=== PATIENT | female | born 1970 | race Caucasian/White ===

== ENCOUNTER 2020-10-18 15:07 | Inpatient (IN) | payer MEDICAID, SELFPAY ==
--- NOTE | ~2020-10-18 | CT_ITS ---
EXAMINATION: CT HEAD WITHOUT CONTRAST CLINICAL INFORMATION: Weakness. Weight loss. COMPARISON: None. TECHNIQUE: Contiguous axial imaging was performed from the skull base to vertex without intravenous administration of contrast. Coronal and sagittal reformatted images are performed at the CT scanner. [This CT examination was performed using dose optimization techniques as appropriate, variously including the following: *Automated exposure control *Adjustment of mA and/or kV according to patient size (this includes techniques or standardized protocols for targeted exams where dose is matched to indication/reason for exam; i.e. extremities or head) *Use of iterative reconstruction technique] DLP: 595.12 mGy-cm. FINDINGS: There is no evidence of acute intracranial hemorrhage or territorial infarction. No abnormal mass-effect or midline shift is seen. Diehl to white matter differentiation is well preserved. No extra-axial fluid collections are identified. The ventricles are normal in size. There is no abnormal attenuation within the brain parenchyma. There is no osseous abnormality. The mastoid air cells and visualized portions of the paranasal sinuses are well-aerated. CT/CT head/brain wo con IMPRESSION: No acute intracranial pathology.
--- NOTE | ~2020-10-18 | CT_ITS ---
EXAMINATION: CT CHEST, ABDOMEN AND PELVIS WITH CONTRAST. CLINICAL INFORMATION: weight loss? vomiting. Cancer? . COMPARISON: No pertinent prior studies are available for comparison. TECHNIQUE: Multidetector volumetric imaging was performed from the thoracic inlet through the pubic symphysis following administration of 100 mL Omnipaque 300 intravenous contrast. Sagittal and coronal reformatted images were obtained on the technologist's workstation. This CT examination was performed using dose optimization techniques as appropriate, variously including the following: *Automated exposure control *Adjustment of mA and/or kV according to patient size (this includes techniques or standardized protocols for targeted exams where dose is matched to indication/reason for exam; i.e. extremities or head) *Use of iterative reconstruction technique DLP: 557 mGy-cm FINDINGS: CHEST: Lung: Linear markings at both lung bases more suggestive of a atelectasis. There are patchy regions of impacted bronchi more so in the right lower lobe. Etiology of this is uncertain. This could be related to underlying infectious etiology or even silent aspiration. Mediastinum: The mediastinum is normal. The central vascular structures are unremarkable. No hilar or mediastinal lymphadenopathy. Pericardium/Pleura: No significant effusion. No pleural mass or thickening. Chest Wall/Axilla: Unremarkable. ABDOMEN/PELVIS: Peritoneal Space:No significant free air or free fluid identified. Liver, Gallbladder, Biliary Tree: The liver is normal in size, shape, and attenuation. No focal hepatic lesion or biliary ductal dilatation is present. The gallbladder surgically absent. Pancreas: Atrophic Spleen: Unremarkable. Adrenal Glands: Bilateral adrenal nodules are seen measuring up to 2.3 cm on the left and 1.9 cm on the right. Kidneys and Ureters: The kidneys are normal in size, shape, and attenuation. No hydronephrosis, hydroureter, or calculi seen. No perinephric stranding. Bladder: Unremarkable. Gastrointestinal Tract: Colon is mostly decompressed. I do not appreciate any suspicious colonic wall thickening or pericolonic inflammatory changes within the decompressed bowel. Normal-appearing appendix in the right lower quadrant. Visualized small bowel unremarkable. Abdominal Wall: No significant hernia is appreciated. Lymphovascular Structures: No lymphadenopathy. The aorta is unremarkable.. Pelvic Viscera: Unremarkable. Osseus Structures: Mild compression deformity of the T12 vertebral body of indeterminate age or significance. The appearance is similar to the 10/30/2017 chest x-ray. CT/CT abdomen pelvis w con IMPRESSION: Bronchial wall thickening with areas of likely mucus impacted bronchi more likely representing infectious or inflammatory causes. No suspicious pulmonary nodules or pulmonary mass lesion seen. Bilateral adrenal lesions are noted uncertain etiology. Adrenal adenomas cannot be excluded with this appearance and if there is clinical concern, consider dedicated triphasic adrenal CT scan with and without contrast to evaluate the adrenal washout pattern.
--- NOTE | ~2020-10-18 | XR_ITS ---
EXAMINATION: XR CHEST CLINICAL INFORMATION: Pneumonia COMPARISON: 10/30/2017 TECHNIQUE: Frontal view of the chest was obtained. FINDINGS: No significant abnormality is noted involving the heart, lungs, mediastinum, bony thorax or soft tissues. Surgical clips are noted in the gallbladder fossa. XR/XR chest 1V IMPRESSION: Unremarkable examination.
[2020-10-18 15:12] VITALS: BP 99/69; PULSE 62; RESP 16; TEMP 36.7; O2SAT 99; BMI 19.7
[2020-10-18 16:17] VITALS: BP 94/48; PULSE 53; RESP 18; TEMP 36.9; O2SAT 98
[2020-10-18] MEDS: 0.9 % Sodium Chloride 1,000 ML 999 ML IV ×3 (16:44→20:00)
[2020-10-18] MEDS: ondansetron HCL 4 MG/2 ML VIAL IVPUSH (16:44)
[2020-10-18 17:36] LABS: Basophils Percent Auto 0.3 % (0-2); Eosinophils Percent Auto 0.2 % (0-4); Hematocrit 41.8 % (37-47); Hemoglobin 12.7 g/dl (12.0-16.0); Imm Gran Abs Auto 0.02 X10*3/uL (0.00-0.03); Imm Gran Pct Auto 0.3 % (0.0-0.4); Lymphocytes Absolute Auto 1.7 X10*3/uL (1.2-4.9); Lymphocytes Percent Auto 26.9 % (20-40); MANUAL DIFF FLAG SCAN; Mean Corpuscular HGB Conc 30.4 g/dl (31.0-35.0); Mean Corpuscular Hemoglobin 31.6 pg (27.0-33.0); Monocytes Absolute Auto 0.3 X10*3/uL (0.1-1.2); Monocytes Percent Auto 4.9 % (2-11); Neutrophils Absolute Auto 4.3 X10*3/uL (2.0-8.3); Neutrophils Percent Auto 67.4 % (45-73); PLT CLUMP 1; Red Blood Count 4.02 X10*6/uL (4.20-5.50); Red Cell Distribution Width 13.6 % (11.0-16.0); SCAN SMEAR FLAG 1
--- NOTE | 2020-10-18 17:36 | ECG_ITS ---
Test Reason : WEAKNESS Blood Pressure : / mmHG Vent. Rate : 050 BPM Atrial Rate : 050 BPM P-R Int : 170 ms QRS Dur : 088 ms QT Int : 480 ms P-R-T Axes : 076 083 069 degrees QTc Int : 437 ms Sinus bradycardia Otherwise normal ECG When compared with ECG of 24-JAN-2015 14:20, Nonspecific T wave abnormality no longer evident in Lateral leads Referred By: Merrill Gomez Electronically Signed By:CRUZ EMANUEL
[2020-10-18 17:40] LABS: White Blood Count 6.4 X10*3/uL (4.8-10.8)
--- NOTE | 2020-10-18 17:45 | ED.WEAKNESS ---
HPI - Weakness General Chief complaint: Weakness Stated complaint: WEIGHT LOSS,WEAKNESS,SOB,N/V Time Seen by Provider: 10/18/20 17:19 Source: patient Mode of arrival: ambulatory Limitations: no limitations History of Present Illness HPI Narrative: Patient presents to the ED for 3 months of weakness, fatigue, loss of appetite, and vomitting. Patient also states some weight loss. Patient denies any abdominal pain, headache, dizziness, fever, chills. Patient does admits cough with recurring fevers for the past 2 weeks. Patient denies any slurred speech, loss of vision, paralysis of extremities, or facial droop. Related Data Home Medications Medication Instructions Recorded Confirmed buprenorphine-naloxone [Suboxone] 1 strip SUBLINGUAL DAILY 10/19/20 10/19/20 clonazepam 2 mg PO BID 10/19/20 10/19/20 clonidine HCl 0.1 tab PO TID PRN 10/19/20 10/19/20 sertraline 100 mg PO DAILY 10/19/20 10/19/20 Allergies Allergy/AdvReac Type Severity Reaction Status Date / Time No Known Allergies Allergy Unverified 04/14/20 15:03 [No Known Allergies*] Review of Systems Constitutional: Constitutional: Reports as per HPI, Reports no additional constitutional complaints and Reports fatigue Eyes: Eyes: Reports as per HPI and Reports no additional eye complaints ENT: Reports system reviewed and no additional complaints, except as documented and Reports as per HPI Cardiovascular: Cardiovascular: Reports as per HPI and Reports no additional cardiovascular complaints Respiratory: Respiratory: Reports as per HPI and Reports no additional respiratory complaints Gastrointestinal: Gastrointestinal: Reports as per HPI and Reports no additional gastrointestinal complaints Genitourinary: Genitourinary: Reports no additional female genitourinary complaints and Reports as per HPI Musculoskeletal: Musculoskeletal: Reports no additional musculoskeletal complaints and Reports as per HPI Neurologic: Reports system reviewed and no additional complaints, except as documented and Reports as per HPI Psychiatric: Psychiatric: Reports no additional psychiatric complaints and Reports as per HPI Endocrine: Endocrine: Reports fatigue [facility] Past Medical History Medical History (Updated 10/19/20 @ 01:35 by RAZA Lanier) High cholesterol Social History Social History Alcohol intake: unknown Smoking Status: Current every day smoker Use of substances other than those prescribed or required for medical reasons: Unknown Advance Directives: No Advance Directives Information Provided: No Physical Exam Vital Signs: Vital Signs: Last Vital Signs Temp 98.6 F 10/18/20 21:59 Pulse 47 L 10/18/20 21:59 Resp 10 L 10/18/20 21:59 BP 104/59 L 10/18/20 21:59 Pulse Ox 99 10/18/20 21:59 Body Mass Index 19.7 Const: General: cooperative, healthy appearing, comfortable, no acute distress, well developed, alert, awake and Physically active Orientation/consciousness: patient oriented x3 HENMT: Head: Yes normal to inspection, Yes No palpable skull fracture present, Yes normocephalic and Yes atraumatic Eyes: General: appearance normal, both eyes and all related structures Neck: Neck: Yes normal visual inspection, Yes full ROM, Yes no lymphadenopathy, Yes no meningeal signs, Yes trachea midline, Yes supple and No tender Chest: Chest palpation & inspection: normal inspection of the chest and normal palpation of entire chest wall Resp: Effort & Inspection: normal respiratory effort and able to speak in complete sentences Auscultation: clear to auscultation bilaterally Cardio: Jugular venous distension: no JVD Heart sounds: S1 normal heart sound present and S2 normal heart sound present GI: Inspection: Yes normal to inspection and No abdominal wall ecchymosis Palpation (GI): Soft to palpation, not firm, nontender, no guarding and not rigid : General: No CVA tenderness and Yes no CVA tenderness Back/Spine/Pelvis: Back: no CVA tenderness, No CVA tenderness and No back tenderness Skin: General skin exam: no rashes or lesions noted and elasticity normal Neuro: Other: Negative slurred speech. Negative facial droop. Negative pronator drift. All extremities strength is equal,5+ and intact. [id number] test intact. NIH score 0 General: patient oriented x3, gait normal, no meningeal signs and CN's II-XI intact bilaterally Cranial nerves: Yes CN's II-XII intact bilaterally Extrem: Other: Negative for swelling, pitting edema, calf tenderness General: Yes normal to inspection and Yes full ROM Psych: Appearance: grossly normal, well kempt and not disheveled Course Course Course Narrative: History physical exam does not indicate stroke. Neuro exam is intact. We will do basic labs to make sure patient is not anemic or have any electrolyte deficiencies. Patient having symptoms for 3 months unlikely patient have a cardiac event but will do EKG and troponin. Chest x-ray and COVID swab will be sent. Reevaluation(s) Reevaluation #1: Patient EKG shows sinus bradycardia. Patient being slightly hypotensive. Patient is being given 3 L of fluids. Heart rate monitor ranges from high 40s to 50s. Will rule out any source of infection and cardiac evaluation. Reevaluation #2: Patient show me a picture as of recent 4 weeks ago and she looked to well nourished and with proper weight. In comparison to phone picture patient looks thinner than usual and evidence of weight loss Due to patient stating weight loss and weakness will send patient for imaging to make sure there was no cancer. Patient sent for chest CT, abdominal CT, and head CT, to make sure there is no cancer. Thyroid level added. Troponin negative. EKG shows sinus bradycardia. Patient hypotensive. Systolic in the 80s. Heart rate between 45 to 51. Reevaluation #3: Patient imaging came back negative for cancer. Chest CT shows bronchial wall thickening represent infectious etiology. Patient will be treated as pneumonia due to patient stating coughing and weakness. Patient labs are normal, but patient will be admitted to the hospital due to period of bradycardia and hypotension during ED visit. Given IV antibiotics. Spoke with hospitalist who accepted the case. Patient did not give urine during the ED visit. Patient was offered Person, but she refused. Patient's vital signs improved per patient no longer hyportensive MDM - Weakness MDM Narrative Medical decision making narrative: Pneumonia. Bradycardia. Lab Data Result diagrams: 10/18/20 17:15 10/18/20 17:15 Labs: Lab Results 10/18/20 10/18/20 10/18/20 Range/Units 17:15 17:15 19:58 WBC 6.4 (4.8-10.8) X10*3/uL RBC 4.02 L (4.20-5.50) X10*6/uL Hgb 12.7 (12.0-16.0) g/dl Hct 41.8 (37-47) % MCV 104.0 H (80-98) fL MCH 31.6 (27.0-33.0) pg MCHC 30.4 L (31.0-35.0) g/dl RDW 13.6 (11.0-16.0) % Plt Count TNP MPV Not Reportable Immature Gran % (Auto) 0.3 (0.0-0.4) % Neut % (Auto) 67.4 (45-73) % Lymph % (Auto) 26.9 (20-40) % Lewis % (Auto) 4.9 (2-11) % Eos % (Auto) 0.2 (0-4) % Baso % (Auto) 0.3 (0-2) % Lymph # (Auto) 1.7 (1.2-4.9) X10*3/uL Lewis # (Auto) 0.3 (0.1-1.2) X10*3/uL Eos # (Auto) 0.0 (0.0-0.4) X10*3/uL Baso # (Auto) 0.0 (0.0-0.2) X10*3/uL Abs Immat Gran (auto) 0.02 (0.00-0.03) X10*3/uL Absolute Neuts (auto) 4.3 (2.0-8.3) X10*3/uL Absolute Nucleated RBC 0.000 (0.0-0.012) X10*3/uL Nucleated RBC % (auto) 0.0 (0.0-0.2) /100WBC Smear Tech's Comments VERIFIED ESR (0-20) MM/HR PT 13.9 H (10.8-13.0) SEC INR 1.2 H (0.9-1.1) APTT 34.9 (24.1-38.0) SEC Hold Blue Top SEE NOTE Sodium 137 (135-145) mmol/L Potassium 4.5 (3.3-5.1) mmol/L Chloride 104 (96-108) mmol/L Carbon Dioxide 21 L (22-29) mmol/L Anion Gap 17 (12-20) BUN 20 H (9-16) mg/dL Creatinine 0.80 (0.5-1.4) mg/dL Estim Creat Clear Calc 70.0 Estimated GFR > 60 Random Glucose 85 (60-115) mg/dL Lactic Acid (0.5-2.0) mmol/L Calcium 8.3 L (8.4-10.2) mg/dL Magnesium 2.1 (1.6-2.6) mg/dL Total Bilirubin 0.8 (0.0-1.0) mg/dL AST 21 (5-31) U/L ALT 8 (0-31) U/L Alkaline Phosphatase 58 (39-117) U/L Total Creatine Kinase 48 (26-140) U/L Troponin I High Sens (<3.5-17.0) ng/L C-Reactive Protein 0.13 (< or = 0.50) mg/dL Total Protein 6.7 (6.5-8.0) g/dL Albumin 3.6 (3.5-5.0) g/dL Lipase < 4 L (8-78) U/L TSH 0.96 (0.32-4.0) uIU/mL Beta HCG, Quant 5 mIU/mL COVID-19 ([facility]) (Negative) COVID-19 Clin Com 10/18/20 10/18/20 10/18/20 Range/Units 19:58 19:58 19:58 WBC (4.8-10.8) X10*3/uL RBC (4.20-5.50) X10*6/uL Hgb (12.0-16.0) g/dl Hct (37-47) % MCV (80-98) fL MCH (27.0-33.0) pg MCHC (31.0-35.0) g/dl RDW (11.0-16.0) % Plt Count MPV Immature Gran % (Auto) (0.0-0.4) % Neut % (Auto) (45-73) % Lymph % (Auto) (20-40) % Lewis % (Auto) (2-11) % Eos % (Auto) (0-4) % Baso % (Auto) (0-2) % Lymph # (Auto) (1.2-4.9) X10*3/uL Lewis # (Auto) (0.1-1.2) X10*3/uL Eos # (Auto) (0.0-0.4) X10*3/uL Baso # (Auto) (0.0-0.2) X10*3/uL Abs Immat Gran (auto) (0.00-0.03) X10*3/uL Absolute Neuts (auto) (2.0-8.3) X10*3/uL Absolute Nucleated RBC (0.0-0.012) X10*3/uL Nucleated RBC % (auto) (0.0-0.2) /100WBC Smear Tech's Comments ESR (0-20) MM/HR PT (10.8-13.0) SEC INR (0.9-1.1) APTT (24.1-38.0) SEC Hold Blue Top Sodium (135-145) mmol/L Potassium (3.3-5.1) mmol/L Chloride (96-108) mmol/L Carbon Dioxide (22-29) mmol/L Anion Gap (12-20) BUN (9-16) mg/dL Creatinine (0.5-1.4) mg/dL Estim Creat Clear Calc Estimated GFR Random Glucose (60-115) mg/dL Lactic Acid 1.0 (0.5-2.0) mmol/L Calcium (8.4-10.2) mg/dL Magnesium (1.6-2.6) mg/dL Total Bilirubin (0.0-1.0) mg/dL AST (5-31) U/L ALT (0-31) U/L Alkaline Phosphatase (39-117) U/L Total Creatine Kinase (26-140) U/L Troponin I High Sens < 3.5 (<3.5-17.0) ng/L C-Reactive Protein (< or = 0.50) mg/dL Total Protein (6.5-8.0) g/dL Albumin (3.5-5.0) g/dL Lipase (8-78) U/L TSH (0.32-4.0) uIU/mL Beta HCG, Quant mIU/mL COVID-19 ([facility]) Negative (Negative) COVID-19 Clin Com See Note 10/18/20 Range/Units 21:10 WBC (4.8-10.8) X10*3/uL RBC (4.20-5.50) X10*6/uL Hgb (12.0-16.0) g/dl Hct (37-47) % MCV (80-98) fL MCH (27.0-33.0) pg MCHC (31.0-35.0) g/dl RDW (11.0-16.0) % Plt Count MPV Immature Gran % (Auto) (0.0-0.4) % Neut % (Auto) (45-73) % Lymph % (Auto) (20-40) % Lewis % (Auto) (2-11) % Eos % (Auto) (0-4) % Baso % (Auto) (0-2) % Lymph # (Auto) (1.2-4.9) X10*3/uL Lewis # (Auto) (0.1-1.2) X10*3/uL Eos # (Auto) (0.0-0.4) X10*3/uL Baso # (Auto) (0.0-0.2) X10*3/uL Abs Immat Gran (auto) (0.00-0.03) X10*3/uL Absolute Neuts (auto) (2.0-8.3) X10*3/uL Absolute Nucleated RBC (0.0-0.012) X10*3/uL Nucleated RBC % (auto) (0.0-0.2) /100WBC Smear Tech's Comments ESR 17 (0-20) MM/HR PT (10.8-13.0) SEC INR (0.9-1.1) APTT (24.1-38.0) SEC Hold Blue Top Sodium (135-145) mmol/L Potassium (3.3-5.1) mmol/L Chloride (96-108) mmol/L Carbon Dioxide (22-29) mmol/L Anion Gap (12-20) BUN (9-16) mg/dL Creatinine (0.5-1.4) mg/dL Estim Creat Clear Calc Estimated GFR Random Glucose (60-115) mg/dL Lactic Acid (0.5-2.0) mmol/L Calcium (8.4-10.2) mg/dL Magnesium (1.6-2.6) mg/dL Total Bilirubin (0.0-1.0) mg/dL AST (5-31) U/L ALT (0-31) U/L Alkaline Phosphatase (39-117) U/L Total Creatine Kinase (26-140) U/L Troponin I High Sens (<3.5-17.0) ng/L C-Reactive Protein (< or = 0.50) mg/dL Total Protein (6.5-8.0) g/dL Albumin (3.5-5.0) g/dL Lipase (8-78) U/L TSH (0.32-4.0) uIU/mL Beta HCG, Quant mIU/mL COVID-19 ([facility]) (Negative) COVID-19 Clin Com ECG Data Interpretation: Sinus bradycardia. Particularly 50. NJ interval 170. QRS 88. QTC 437. Negative STEMI Discharge Plan Discharge Clinical Impression: Pneumonia, Bradycardia Patient Disposition: Admitted As Inpatient
[2020-10-18 17:48] LABS: Alanine Aminotransferase 8 U/L (0-31); Albumin Level 3.6 g/dL (3.5-5.0); Alkaline Phosphatase 58 U/L (39-117); Anion Gap 17 (12-20); Aspartate Amino Transferase 21 U/L (5-31); Bilirubin Total 0.8 mg/dL (0.0-1.0); Blood Urea Nitrogen 20 mg/dL (9-16); Calcium 8.3 mg/dL (8.4-10.2); Carbon Dioxide 21 mmol/L (22-29); Chloride 104 mmol/L (96-108); Estimated Glomerular Filt Rate > 60; Glucose Random 85 mg/dL (60-115); Potassium 4.5 mmol/L (3.3-5.1); Sodium 137 mmol/L (135-145); Total Protein 6.7 g/dL (6.5-8.0)
[2020-10-18 18:03] LABS: HCG Quantitative 5 mIU/mL
[2020-10-18 18:13] LABS: Lipase < 4 U/L (8-78); Magnesium 2.1 mg/dL (1.6-2.6)
[2020-10-18 18:18] VITALS: BP 85/44; PULSE 49; RESP 15; TEMP 36.9; O2SAT 97
[2020-10-18 18:37] LABS: SLIDE REVIEW VERIFIED
--- NOTE | 2020-10-18 19:15 | PC.NURSE ---
ASSUMED CARE OF PT. PT RESTING IN STRETCHER STATING I JUST DON'T FEEL GOOD AT THIS TIME. PT ON MONITOR, PA IN ROOM FOR RE-EVAL.
[2020-10-18 20:22] LABS: COVID-19 Test Negative (Negative)
[2020-10-18 20:39] LABS: C Reactive Protein 0.13 mg/dL (< or = 0.50)
[2020-10-18 20:42] LABS: Troponin-I High Sensitivity < 3.5 ng/L (<3.5-17.0)
[2020-10-18 20:44] VITALS: BP 93/63; PULSE 50; RESP 12; TEMP 36.9; O2SAT 100
[2020-10-18 21:26] LABS: Thyroid Stimulating Hormone 0.96 uIU/mL (0.32-4.0)
[2020-10-18 21:45] LABS: INTERNATIONAL NORM RATIO 1.2 (0.9-1.1); Prothrombin Time 13.9 SEC (10.8-13.0)
[2020-10-18 21:48] LABS: Partial Thromboplastin Time 34.9 SEC (24.1-38.0)
[2020-10-18 21:59] VITALS: BP 104/59; PULSE 47; RESP 10; TEMP 37; O2SAT 99
[2020-10-18] MEDS: Azithromycin 500 MG in 0.9 % Sodium Chloride 250 ML 125 MG IV (22:00)
--- NOTE | 2020-10-18 22:00 | PC.NURSE ---
PT BEING ADMITTED AT THIS TIME. AWAITING FURTHER ORDERS.
[2020-10-18 22:07] LABS: Erythrocyte Sedimentation Rate 17 MM/HR (0-20)
--- NOTE | 2020-10-18 22:36 | P.HPHOSP_ITS ---
History of Present Illness Date of Service: 10/18/20 Chief Complaint: multiple complaints This is a 50-year-old female with past medical history of hypertension, endocarditis, discitis, pneumonia, hyperlipidemia, PTSD who presents to the hospital with complaints of fever, coughing, phlegm production for the past 4 months. Patient reports that she felt like she had pneumonia but tried to manage at home for the past 4 months, improved slightly but for the past couple of weeks her symptoms returned. She also has rhinorrhea, night sweats. She also has nausea, vomiting, and reports significant weight loss of about 10 lb in 3 days. She has loss of appetite, she has been drinking Ensure and protein shakes but has not eaten anything solid for couple weeks. She is also constipated chronically, has decreased urine output, feels dyspneic, and tachypneic. She denies any recent sick contacts or travel, denies any headache, change in vision, no abdominal pain, no chest pain. No urinary symptoms including no dysuria, urgency, frequency. no lower extremity edema. On arrival to the ED patient's vital significant for temp of 98?, heart rate of 62 the drops to 40s to 50s, respiratory rate of 16, blood pressure of 9 hour 69, but did drop in the ED to 85/44, satting 97% on room air Labs are significant for WBC count of 6.3, hemoglobin of 12.1, PT of 13.9 INR of 1.2, BUN of 18, creatinine of 0.81, and troponin negative, CRP negative, lipase negative, respiratory viral panel pending, COVID-19 negative, Chest CT revealed bronchial wall thickening with area of likely mucus impacted bronchi more likely representing infectious or inflammatory causes. No suspicious pulmonary nodules or pulmonary mass lesions seen. She has bilateral adrenal lesions of uncertain etiology Goal history as below on confirm with patient Review of Systems Review of Systems: Yes all other systems are reviewed and are negative [facility] Medical History (Updated 10/19/20 @ 06:02 by Hunter Pinto MD) Discitis Endocarditis High cholesterol Hyperlipidemia Hypertension Pneumonia PTSD (post-traumatic stress disorder) Pertinent family history: Breast cancer in sister, throat cancer in father Surgical History (Updated 10/19/20 @ 05:55 by Hunter Pinto MD) History of Social History Household Members: None Housing: Apartment Alcohol intake: unknown Smoking Status: Current every day smoker Tobacco Type: Cigarette Use of substances other than those prescribed or required for medical reasons: No Have you been hit, kicked, punched, or otherwise hurt by someone within the past year? If so, by whom?: No Do you feel safe in your current relationship?: No Current Relationship Is there a partner from a previous relationship who is making you feel unsafe now?: No Are you made to feel afraid or neglected: No Advance Directives: No Advance Directives Information Provided: No Do you have thoughts of harming others: None Do you have a plan to hurt others: No Plan Recently lost weight without trying: Yes Meds Allergies Allergy/AdvReac Type Severity Reaction Status Date / Time No Known Allergies Allergy Verified 10/19/20 02:43 [No Known Allergies*] Active Medications: Current Medications Generic Name Dose Route Start Last Admin Trade Name Freq PRN Reason Stop Dose Admin Azithromycin 500 mg/ Sodium 250 mls @ 125 mls/hr 10/18/20 21:25 Chloride IV 10/18/20 23:24 ONCE ONE Home Medications Medication Instructions Recorded Confirmed Last Taken Type buprenorphine-naloxone [Suboxone] 1 strip SUBLINGUAL DAILY 10/19/20 10/19/20 10/18/20 08:00 History clonazepam 2 mg PO BID 10/19/20 10/19/20 Unknown History clonidine HCl 0.1 tab PO TID PRN 10/19/20 10/19/20 Unknown History sertraline 100 mg PO DAILY 10/19/20 10/19/20 Unknown History Physical Exam Vital Signs and Narrative: Vital Signs: Last Vital Signs Temp 98.6 F 10/18/20 21:59 Pulse 47 L 10/18/20 21:59 Resp 10 L 10/18/20 21:59 BP 104/59 L 10/18/20 21:59 Pulse Ox 99 10/18/20 21:59 Body Mass Index 19.7 Const: General: cooperative, no acute distress, ill appearing and tired appearing Orientation/consciousness: patient oriented x3 Eyes: General: appearance normal, both eyes and all related structures Resp: Effort & Inspection: normal respiratory effort and able to speak in complete sentences Auscultation: clear to auscultation bilaterally Cardio: Rate: regular rate Rhythm: regular rhythm GI: Palpation (GI): Soft to palpation Auscultation: normal bowel sounds Skin: General skin exam: no rashes or lesions noted Neuro: General: patient oriented x3 Cognition (Neuro): normal cognition Extrem: General: Yes normal to inspection and Yes no pedal edema Results Labs CBC and Chem 7: 10/19/20 04:15 10/19/20 04:15 Labs: Laboratory Results - last 24 hr 10/18/20 10/18/20 10/18/20 17:15 17:15 19:58 MCV 104.0 H MCH 31.6 MCHC 30.4 L RDW 13.6 Plt Count TNP MPV Not Reportable Immature Gran % (Auto) 0.3 Neut % (Auto) 67.4 Lymph % (Auto) 26.9 Isabela % (Auto) 4.9 Eos % (Auto) 0.2 Baso % (Auto) 0.3 Lymph # (Auto) 1.7 Isabela # (Auto) 0.3 Eos # (Auto) 0.0 Baso # (Auto) 0.0 Abs Immat Gran (auto) 0.02 Absolute Neuts (auto) 4.3 Absolute Nucleated RBC 0.000 Nucleated RBC % (auto) 0.0 Smear Tech's Comments VERIFIED ESR PT 13.9 H INR 1.2 H APTT 34.9 Hold Blue Top SEE NOTE Anion Gap 17 Estim Creat Clear Calc 70.0 Estimated GFR > 60 Random Glucose 85 Lactic Acid Calcium 8.3 L Magnesium 2.1 Total Bilirubin 0.8 AST 21 ALT 8 Alkaline Phosphatase 58 Total Creatine Kinase 48 Troponin I High Sens C-Reactive Protein 0.13 Total Protein 6.7 Albumin 3.6 Lipase < 4 L TSH 0.96 Beta HCG, Quant 5 COVID-19 ([facility]) COVID-19 Clin Com 10/18/20 10/18/20 10/18/20 19:58 19:58 19:58 MCV MCH MCHC RDW Plt Count MPV Immature Gran % (Auto) Neut % (Auto) Lymph % (Auto) Isabela % (Auto) Eos % (Auto) Baso % (Auto) Lymph # (Auto) Isabela # (Auto) Eos # (Auto) Baso # (Auto) Abs Immat Gran (auto) Absolute Neuts (auto) Absolute Nucleated RBC Nucleated RBC % (auto) Smear Tech's Comments ESR PT INR APTT Hold Blue Top Anion Gap Estim Creat Clear Calc Estimated GFR Random Glucose Lactic Acid 1.0 Calcium Magnesium Total Bilirubin AST ALT Alkaline Phosphatase Total Creatine Kinase Troponin I High Sens < 3.5 C-Reactive Protein Total Protein Albumin Lipase TSH Beta HCG, Quant COVID-19 ([facility]) Negative COVID-19 Clin Com See Note 10/18/20 21:10 MCV MCH MCHC RDW Plt Count MPV Immature Gran % (Auto) Neut % (Auto) Lymph % (Auto) Isabela % (Auto) Eos % (Auto) Baso % (Auto) Lymph # (Auto) Isabela # (Auto) Eos # (Auto) Baso # (Auto) Abs Immat Gran (auto) Absolute Neuts (auto) Absolute Nucleated RBC Nucleated RBC % (auto) Smear Tech's Comments ESR 17 PT INR APTT Hold Blue Top Anion Gap Estim Creat Clear Calc Estimated GFR Random Glucose Lactic Acid Calcium Magnesium Total Bilirubin AST ALT Alkaline Phosphatase Total Creatine Kinase Troponin I High Sens C-Reactive Protein Total Protein Albumin Lipase TSH Beta HCG, Quant COVID-19 ([facility]) COVID-19 Clin Com Imaging Radiologist's Impressions: Impressions Chest X-Ray 10/18/20 18:29 IMPRESSION: Unremarkable examination. Abdomen/Pelvis CT 10/18/20 19:21 IMPRESSION: Bronchial wall thickening with areas of likely mucus impacted bronchi more likely representing infectious or inflammatory causes. No suspicious pulmonary nodules or pulmonary mass lesion seen. Bilateral adrenal lesions are noted uncertain etiology. Adrenal adenomas cannot be excluded with this appearance and if there is clinical concern, consider dedicated triphasic adrenal CT scan with and without contrast to evaluate the adrenal washout pattern. Chest CT 10/18/20 19:21 IMPRESSION: Bronchial wall thickening with areas of likely mucus impacted bronchi more likely representing infectious or inflammatory causes. No suspicious pulmonary nodules or pulmonary mass lesion seen. Bilateral adrenal lesions are noted uncertain etiology. Adrenal adenomas cannot be excluded with this appearance and if there is clinical concern, consider dedicated triphasic adrenal CT scan with and without contrast to evaluate the adrenal washout pattern. Head CT 10/18/20 19:23 IMPRESSION: No acute intracranial pathology. Assessment and Plan (1) Community acquired pneumonia: Status: Acute (2) Bradycardia: Status: Acute (3) Hypotension: Status: Acute (4) Weight loss: Status: Acute (5) Lesion of adrenal gland: Status: Acute This is a 50-year-old female with past medical history as above who presents to the hospital with multiple complaints including fever, cough, weight loss, found to be hypotensive and bradycardic # community-acquired pneumonia - afebrile, no leukocytosis, evidence of pneumonia on CT scan of the chest - subjective fevers, low appetite, nausea vomiting, dyspnea, cough or phlegm production Plan: - broad-spectrum antibiotics - viral panel sent, strep and legionella [place] sent - will follow cultures # hypotension - most likely secondary to dehydration - patient afebrile, has no leukocytosis, no other evidence of acute sepsis - improving with IV fluids - continue IV hydration # bradycardia - EKG shows sinus bradycardia - patient not on any AV blocking agents - denies any lightheadedness, no palpitations - if bradycardia persists, consider consult with Cardiology # adrenal lesions - CT abdomen showed adrenal lesions - may need follow outpatient for triphasic adrenal CT # weight loss - most likely secondary to decreased oral intake as patient reports that she has not been taking any solids and been drinking Ensure and protein shakes only -may need follow-up with PCP outpatient # mood disorder - continue clonidine, sertraline and clonazepam # history of IV drug use - continue Suboxone
[2020-10-19] VITALS (9 sets, daily range): BP systolic 86–104; BP diastolic 56–69; PULSE 45–60; RESP 16–20; TEMP 36.3–37; O2SAT 94–99; BMI 21.2
[2020-10-19] MEDS: Enoxaparin Sodium 40 MG/0.4 ML SYRINGE SUBCUT (01:21)
[2020-10-19] MEDS: 0.9 % Sodium Chloride Flush 3 ML SYRINGE IVFLUSH ×2 (01:45→09:32)
[2020-10-19 02:37] LABS: Adenovirus PCR Not Detected (Not Detect.); Bordetella parapertussis PCR Not Detected (Not Detect.); Bordetella pertussis PCR Not Detected (Not Detect.); Chlamydia pneumoniae PCR Not Detected (Not Detect.); Coronavirus 229E PCR Not Detected (Not Detect.); Coronavirus HKU1 PCR Not Detected (Not Detect.); Coronavirus NL63 PCR Not Detected (Not Detect.); Coronavirus OC43 PCR Not Detected (Not Detect.); Human metapneumovirus PCR Not Detected (Not Detect.); Influenza A PCR Not Detected (Not Detect.); Influenza B PCR Not Detected (Not Detect.); Mycoplasma pneumoniae PCR Not Detected (Not Detect.); Parainfluenza 1 PCR Not Detected (Not Detect.); Parainfluenza 2 PCR Not Detected (Not Detect.); Parainfluenza 3 PCR Not Detected (Not Detect.); Parainfluenza 4 PCR Not Detected (Not Detect.); RSV PCR Not Detected (Not Detect.); Rhino/Enterovirus PCR Not Detected (Not Detect.); SARS-CoV-2 PCR Not Detected (Not Detect.)
[2020-10-19 05:02] LABS: MANUAL DIFF FLAG NO
[2020-10-19 05:25] LABS: Basophils Percent Auto 0.6 % (0-2); Eosinophils Absolute Auto 0.1 X10*3/uL (0.0-0.4); Hematocrit 36.7 % (37-47); Hemoglobin 12.1 g/dl (12.0-16.0); Imm Gran Abs Auto 0.03 X10*3/uL (0.00-0.03); Imm Gran Pct Auto 0.5 % (0.0-0.4); Lymphocytes Absolute Auto 2.5 X10*3/uL (1.2-4.9); Lymphocytes Percent Auto 39.5 % (20-40); Mean Corpuscular Hemoglobin 31.7 pg (27.0-33.0); Mean Corpuscular Volume 96.1 fL (80-98); Mean Platelet Volume 10.7 fL (9.4-12.3); Monocytes Absolute Auto 0.4 X10*3/uL (0.1-1.2); Neutrophils Absolute Auto 3.2 X10*3/uL (2.0-8.3); Neutrophils Percent Auto 51.4 % (45-73); Platelet Count 263 X10*3/uL (160-400); Red Blood Count 3.82 X10*6/uL (4.20-5.50); Red Cell Distribution Width 13.7 % (11.0-16.0); White Blood Count 6.3 X10*3/uL (4.8-10.8)
[2020-10-19 05:34] LABS: Anion Gap 18 (12-20); Blood Urea Nitrogen 18 mg/dL (9-16); Calcium 8.3 mg/dL (8.4-10.2); Carbon Dioxide 17 mmol/L (22-29); Chloride 105 mmol/L (96-108); Creatinine Clr Calc Pharmacy 72.5; Estimated Glomerular Filt Rate > 60; Glucose Random 87 mg/dL (60-115); Potassium 4.2 mmol/L (3.3-5.1); Sodium 136 mmol/L (135-145)
[2020-10-19] MEDS: Lactated Ringers 1,000 ML 100 ML IVCONT ×2 (06:26→16:40)
[2020-10-19] MEDS: Buprenorphine/Naloxone 12/3 mg FILM 1 FILM SUBLINGUAL (09:31)
[2020-10-19] MEDS: clonazePAM 1 MG TABLET 2 MG PO (09:31)
[2020-10-19] MEDS: Sertraline HCL 100 MG TABLET PO (09:31)
--- NOTE | 2020-10-19 11:56 | MHC.CM.PN ---
[id number] DX PNA HYPOTENSION She lives alone and is independent all functional mobility. A HCP has been documented and placed on chart. Copies provided to PT. DP home w [facility] or no services. Family will provided transportation to home. CM will follow.
--- NOTE | 2020-10-19 12:17 | MHC.CLN ---
RE: CONSULT PT REPORTED 15# WT LOSS (INVOLUNTARY D/T ACUTE ILLNESS) PREVIOUS WT 09/09/19 189#, 34% SIG WT LOSS X 1 YEAR PT STATES SHE INTENTIONALLY LOST WT LAST YEAR AND REACHED HER GOAL WT, BUT MOST RECENTLY HAD WT LOSS 15# R/T ACUTE ILLNESS. PT RECEPTIVE TO DRINKING ENSURE (CLAUDIA) BID BETWEEN MEALS HER APPETITE REMAINS POOR PT SHOWS NO S/S MALNUTRITION AT THIS TIME SEE ALSO CLINICAL NUTRITION ASSESSMENT
--- NOTE | 2020-10-19 14:41 | HO.PM.IMPN ---
Subjective Subjective Date of Service: 10/19/20 Interval History: She has some sob, and cough no fever Review of Systems Gen: no fever Resp: no sob, no cough CV: no chest, no WALLACE, no leg edema GI: No n/v, no abd pain Neuro: No confusion Physical Exam Vital Signs: Vital Signs: Last Vital Signs Temp 98 F 10/19/20 11:53 Pulse 57 10/19/20 11:53 Resp 16 10/19/20 11:53 BP 92/64 10/19/20 11:53 Pulse Ox 96 10/19/20 11:53 Body Mass Index 21.2 General: AO X 3, no acute distress Resp: CTA bilateral CVS: S1,S2,RRR GI: +BS, NT, no distention Skin: No rash Neuro: motor grossly intact Psych: appropriate affect Objective Data Current Medications Generic Name Dose Route Start Last Admin Trade Name Freq PRN Reason Stop Dose Admin Acetaminophen 650 mg 10/19/20 00:26 Acetaminophen 325 Mg Tablet PO Q6H PRN Pain, Mild (Pain Scale 1-3) Buprenorphine/Naloxone 1 film 10/19/20 09:00 10/19/20 09:31 Buprenorphine/Naloxone 12/3 Mg Film SUBLINGUAL 1 film DAILY DEWAYNE Administration Clonazepam 2 mg 10/19/20 09:00 10/19/20 09:31 Clonazepam 1 Mg Tablet PO 2 mg BID DEWAYNE Administration Clonidine HCl 0.01 mg 10/19/20 05:50 Clonidine Hcl 0.1 Mg Tablet PO TID PRN anxiety Protocol Docusate Sodium 100 mg 10/19/20 00:26 Docusate Sodium 100 Mg Capsule PO DAILY PRN Constipation Enoxaparin Sodium 40 mg 10/19/20 01:00 10/19/20 01:21 Enoxaparin Sodium 40 Mg/0.4 Ml Syringe SUBCUT 40 mg Q24H DEWAYNE Administration Ceftriaxone Sodium 1 gm/ 50 mls @ 100 mls/hr 10/19/20 22:00 Sodium Chloride IV Q24H DEWAYNE Azithromycin 500 mg/ Sodium 250 mls @ 125 mls/hr 10/19/20 22:00 Chloride IV Q24H DEWAYNE Lactated Ringer's 1,000 mls @ 100 mls/hr 10/19/20 06:00 10/19/20 06:26 Lr IVCONT 100 mls/hr .Q10H DEWAYNE Administration Ondansetron HCl 4 mg 10/19/20 00:26 Ondansetron Hcl 4 Mg/2 Ml Vial IVPUSH Q8H PRN Nausea and Vomiting Pharmacy Consult 1 each 10/18/20 22:40 Consult Rx Perform Med Rec MISCELLANE ONCE PRN Consult order Psyllium Hydrophilic Mucilloid 3.4 gm 10/19/20 14:40 Psyllium Seed 3.4 Gm Powd.Pack PO DAILY DEWAYNE Sertraline HCl 100 mg 10/19/20 09:00 10/19/20 09:31 Sertraline Hcl 100 Mg Tablet PO 100 mg DAILY DEWAYNE Administration Sodium Chloride 3 ml 10/19/20 00:26 10/19/20 09:32 0.9 % Sodium Chloride Flush 3 Ml Syringe IVFLUSH 3 ml QSHIFT DEWAYNE Administration Labs CBC & Chem 7: 10/19/20 04:15 10/19/20 04:15 Assessment and Plan (1) Community acquired pneumonia: Status: Acute (2) Bradycardia: Status: Acute (3) Hypotension: Status: Acute (4) Weight loss: Status: Acute (5) Lesion of adrenal gland: Status: Acute Assessment and Plan: This is a 50-year-old female with past medical history as above who presents to the hospital with multiple complaints including fever, cough, weight loss, found to be hypotensive and bradycardic # community-acquired pneumonia, clinically responding to treatment continue Azithro and Ceftriaxone IV for at least one more day and reassess # hypotension--I don't think this is due to sepsis -continue IV Fluid and do AI w/u # bradycardia--likely from clonidine, there is no pause. Hold clonidine if significantly low. -cardiology evaluation not needed at this time # Adrenal lesions - CT abdomen showed adrenal lesions - may need follow outpatient for triphasic adrenal CT # weight loss - most likely secondary to decreased oral intake as patient reports that she has not been taking any solids and been drinking Ensure and protein shakes only -may need follow-up with PCP outpatient # mood disorder - continue clonidine, sertraline and clonazepam # history of IV drug use - continue Suboxone
[2020-10-19] MEDS: cefTRIAXone sodium 1 GM in 0.9 % Sodium Chloride 50 ML IV (21:30)
[2020-10-19] MEDS: Azithromycin 500 MG in 0.9 % Sodium Chloride 250 ML 125 MG IV (22:52)
[2020-10-20] VITALS (7 sets, daily range): BP systolic 82–113; BP diastolic 57–73; PULSE 49–57; RESP 16–18; TEMP 36.1–37; O2SAT 93–98
[2020-10-20] MEDS: Enoxaparin Sodium 40 MG/0.4 ML SYRINGE SUBCUT (01:11)
[2020-10-20] MEDS: Lactated Ringers 1,000 ML 100 ML IVCONT ×3 (01:11→21:50)
[2020-10-20] MEDS: 0.9 % Sodium Chloride Flush 3 ML SYRINGE IVFLUSH (01:11)
[2020-10-20] MEDS: Sertraline HCL 100 MG TABLET PO (09:47)
[2020-10-20] MEDS: Buprenorphine/Naloxone 12/3 mg FILM 1 FILM SUBLINGUAL (09:47)
[2020-10-20] MEDS: clonazePAM 1 MG TABLET 2 MG PO ×2 (09:47→21:50)
--- NOTE | 2020-10-20 14:19 | HO.PM.IMPN ---
Subjective Subjective Date of Service: 10/20/20 Interval History: She feels better, overall apetite is still poor. BP is better Review of Systems Gen: no fever Resp: no sob, no cough CV: no chest, no WALLACE, no leg edema GI: No n/v, no abd pain Neuro: No confusion Physical Exam Vital Signs: Vital Signs: Last Vital Signs Temp 97 F 10/20/20 11:31 Pulse 56 10/20/20 11:31 Resp 16 10/20/20 11:31 BP 106/73 10/20/20 11:31 Pulse Ox 93 10/20/20 11:31 Body Mass Index 21.2 General: AO X 3, no acute distress Resp: CTA bilateral CVS: S1,S2,RRR GI: +BS, NT, no distention Skin: No rash Neuro: motor grossly intact Psych: appropriate affect Objective Data Current Medications Generic Name Dose Route Start Last Admin Trade Name Freq PRN Reason Stop Dose Admin Acetaminophen 650 mg 10/19/20 00:26 Acetaminophen 325 Mg Tablet PO Q6H PRN Pain, Mild (Pain Scale 1-3) Buprenorphine/Naloxone 1 film 10/19/20 09:00 10/20/20 09:47 Buprenorphine/Naloxone 12/3 Mg Film SUBLINGUAL 1 film DAILY DEWAYNE Administration Clonazepam 2 mg 10/19/20 09:00 10/20/20 09:47 Clonazepam 1 Mg Tablet PO 2 mg BID DEWAYNE Administration Clonidine HCl 0.01 mg 10/19/20 05:50 Clonidine Hcl 0.1 Mg Tablet PO TID PRN anxiety Protocol Docusate Sodium 100 mg 10/19/20 00:26 Docusate Sodium 100 Mg Capsule PO DAILY PRN Constipation Enoxaparin Sodium 40 mg 10/19/20 01:00 10/20/20 01:11 Enoxaparin Sodium 40 Mg/0.4 Ml Syringe SUBCUT 40 mg Q24H DEWAYNE Administration Ceftriaxone Sodium 1 gm/ 50 mls @ 100 mls/hr 10/19/20 22:00 10/19/20 22:41 Sodium Chloride IV Infused Q24H DEWAYNE Infusion Azithromycin 500 mg/ Sodium 250 mls @ 125 mls/hr 10/19/20 22:00 10/20/20 01:18 Chloride IV Infused Q24H DEWAYNE Infusion Lactated Ringer's 1,000 mls @ 100 mls/hr 10/19/20 06:00 10/20/20 11:37 Lr IVCONT 100 mls/hr .Q10H DEWAYNE Administration Ondansetron HCl 4 mg 10/19/20 00:26 Ondansetron Hcl 4 Mg/2 Ml Vial IVPUSH Q8H PRN Nausea and Vomiting Pharmacy Consult 1 each 10/18/20 22:40 Consult Rx Perform Med Rec MISCELLANE ONCE PRN Consult order Psyllium Hydrophilic Mucilloid 3.4 gm 10/19/20 14:40 10/20/20 09:47 Psyllium Seed 3.4 Gm Powd.Pack PO 3.4 gm DAILY DEWAYNE Administration Sertraline HCl 100 mg 10/19/20 09:00 10/20/20 09:47 Sertraline Hcl 100 Mg Tablet PO 100 mg DAILY DEWAYNE Administration Sodium Chloride 3 ml 10/19/20 00:26 10/20/20 09:47 0.9 % Sodium Chloride Flush 3 Ml Syringe IVFLUSH Not Given QSHIFT DEWAYNE Labs CBC & Chem 7: 10/19/20 04:15 10/19/20 04:15 Microbiology Microbiology Results: Microbiology 10/18/20 19:58 Blood - Venous Blood Culture - Preliminary No growth after 24 hours. 10/18/20 19:58 Blood - Venous Blood Culture - Preliminary No growth after 24 hours. Assessment and Plan (1) Community acquired pneumonia: Status: Acute (2) Bradycardia: Status: Acute (3) Hypotension: Status: Acute (4) Weight loss: Status: Acute (5) Lesion of adrenal gland: Status: Acute Assessment and Plan: This is a 50-year-old female with past medical history as above who presents to the hospital with multiple complaints including fever, cough, weight loss, found to be hypotensive and bradycardic # community-acquired pneumonia, clinically responding to treatment continue Azithro and Ceftriaxone IV and change to PO tomorrow # hypotension--Improved, likely from limitted PO intake. # bradycardia--likely from clonidine, there is no pause. Hold clonidine if significantly low. HR is 56 which is ok # Adrenal lesions - CT abdomen showed adrenal lesions - may need follow outpatient for triphasic adrenal CT # weight loss - most likely secondary to decreased oral intake as patient reports that she has not been taking any solids and been drinking Ensure and protein shakes only -may need follow-up with PCP outpatient # mood disorder - continue clonidine, sertraline and clonazepam # history of IV drug use - continue Suboxone Out of bed, ambulate, off tele
--- NOTE | 2020-10-20 14:22 | PC.NURSE ---
1400 sleeping most of day. IVF cont. Prabhu diet.
[2020-10-20] MEDS: cefTRIAXone sodium 1 GM in 0.9 % Sodium Chloride 50 ML IV (21:50)
[2020-10-20] MEDS: Azithromycin 500 MG in 0.9 % Sodium Chloride 250 ML 125 MG IV (22:26)
[2020-10-21 01:42] LABS: Glucose Urine UA NEG (NEG); Leukocyte Esterase Urine NEG (NEG); Nitrite Urine NEG (NEG); PH 7.5 (5.0-8.0); Specific Gravity - Urine 1.015 (1.005-1.025); Urine Blood NEG (NEG); Urine Ketones NEG (NEG); Urine Protein NEG (NEG-TRACE)
[2020-10-21 01:50] LABS: Appearance Urine CLEAR; Color Urine YELLOW
[2020-10-21] MEDS: Enoxaparin Sodium 40 MG/0.4 ML SYRINGE SUBCUT (02:05)
[2020-10-21 02:23] LABS: Amphetamine Screen Urine Not Detected (Not Detect); Barbiturates, Urine Not Detected (Not Detect); Benzodiazepines Screen Urine Not Detected (Not Detect); Cannabinoid Screen Urine POSITIVE (Not Detect); Cocaine Screen Urine Not Detected (Not Detect); Opiate Screen Urine Not Detected (Not Detect); Phencyclidine Screen Urine Not Detected (Not Detect)
[2020-10-21 03:25] VITALS: BP 92/65; PULSE 54; RESP 17; TEMP 36.4; O2SAT 95
[2020-10-21] MEDS: clonazePAM 1 MG TABLET 2 MG PO (07:31)
[2020-10-21] MEDS: Sertraline HCL 100 MG TABLET PO (07:31)
[2020-10-21] MEDS: Buprenorphine/Naloxone 12/3 mg FILM 1 FILM SUBLINGUAL (07:31)
[2020-10-21] MEDS: Lactated Ringers 1,000 ML 100 ML IVCONT (07:32)
[2020-10-21 07:54] VITALS: BP 104/58; PULSE 62; RESP 20; TEMP 35.9; O2SAT 97
--- NOTE | 2020-10-21 09:01 | P.DS_ITS ---
DS: Providers Provider Date of Service: 10/22/20 Date of admission: 10/18/20 22:27 Primary care physician: [facility] Consults: 10/21/20 08:57 Addiction Medicine Routine Consulting Provider: Mackenzie Randall Reason for consultation: Substance Dependence DS: Diagnosis Discharge Diagnosis (1) Community acquired pneumonia: Status: Acute (2) Bradycardia: Status: Acute (3) Hypotension: Status: Acute (4) Weight loss: Status: Acute (5) Lesion of adrenal gland: Status: Acute DS: Medications Discharge Medications Home Medications: Home Medications Medication Instructions Recorded Confirmed buprenorphine-naloxone [Suboxone] 1 strip SUBLINGUAL DAILY 10/19/20 10/19/20 clonazepam 2 mg PO BID 10/19/20 10/19/20 clonidine HCl 0.1 tab PO TID PRN 10/19/20 10/19/20 sertraline 100 mg PO DAILY 10/19/20 10/19/20 DS: Summary Hospital Course Hospital Course: Chief Complaint: multiple complaints This is a 50-year-old female with past medical history of hypertension, endocarditis, discitis, pneumonia, hyperlipidemia, PTSD who presents to the hospital with complaints of fever, coughing, phlegm production for the past 4 months. Patient reports that she felt like she had pneumonia but tried to manage at home for the past 4 months, improved slightly but for the past couple of weeks her symptoms returned. She also has rhinorrhea, night sweats. She also has nausea, vomiting, and reports significant weight loss of about 10 lb in 3 days. She has loss of appetite, she has been drinking Ensure and protein shakes but has not eaten anything solid for couple weeks. She is also constipated chronically, has decreased urine output, feels dyspneic, and tachypneic. She denies any recent sick contacts or travel, denies any headache, change in vision, no abdominal pain, no chest pain. No urinary symptoms including no dysuria, urgency, frequency. no lower extremity edema. On arrival to the ED patient's vital significant for temp of 98?, heart rate of 62 the drops to 40s to 50s, respiratory rate of 16, blood pressure of 9 hour 69, but did drop in the ED to 85/44, satting 97% on room air Labs are significant for WBC count of 6.3, hemoglobin of 12.1, PT of 13.9 INR of 1.2, BUN of 18, creatinine of 0.81, and troponin negative, CRP negative, lipase negative, respiratory viral panel pending, COVID-19 negative, Chest CT revealed bronchial wall thickening with area of likely mucus impacted bronchi more likely representing infectious or inflammatory causes. No suspicious pulmonary nodules or pulmonary mass lesions seen. She has bilateral adrenal lesions of uncertain etiology Hospital course: # community-acquired pneumonia, clinically responded treatement to IV Azithro and Ceftriaxone IV for 48 hours and will change to PO Ceftin at discharge for total of 7 days, she is not hypoxic, no fever. # hypotension--resolved with IV, i don't think was related to sepsis rather due to decrease oral intake and it does appear that BP runs on low side # bradycardia--likely from clonidine, there is no pause. Hold clonidine if significantly low. Pulse presently in 60s # Adrenal lesions--getting a triphasic CT for further evaluation # weight loss - most likely secondary to decreased oral intake as patient reports that she has not been taking any solids and been drinking Ensure and protein shakes only -to follow up with PCP for further work up # mood disorder - continue clonidine, sertraline and clonazepam # history of IV drug use - continue Suboxone, addication evaluated and will prescribe Suboxone at discharge She ended up leaving and not waiting for final instruction and discharge paperworks Time Spent with Patient Time attestation: Total time spent providing and/or coordinating discharge services: Discharge coordination time: Greater than 30 minutes Physical Exam Vital Signs: Vital Signs: Last Vital Signs Temp 96.6 F L 10/21/20 07:54 Pulse 62 10/21/20 07:54 Resp 20 10/21/20 07:54 BP 104/58 L 10/21/20 07:54 Pulse Ox 97 10/21/20 07:54 Body Mass Index 21.2 General: AO X 3, no acute distress Resp: CTA bilateral CVS: S1,S2,RRR GI: +BS, NT, no distention Skin: No rash Neuro: motor grossly intact Psych: appropriate affect DS: Data Data Completed and Pending Labs on day of discharge: Laboratory Results - last 24 hr 10/21/20 10/21/20 01:25 01:25 Urine Color YELLOW Urine Appearance CLEAR Urine pH 7.5 Ur Specific [place] 1.015 Urine Protein NEG Urine Glucose (UA) NEG Urine Ketones NEG Urine Blood NEG Urine Nitrite NEG Ur Leukocyte Esterase NEG Urine Opiates Screen Not Detected Ur Barbiturates Screen Not Detected Ur Phencyclidine Scrn Not Detected Ur Amphetamines Screen Not Detected U Benzodiazepines Scrn Not Detected Urine Cocaine Screen Not Detected U Marijuana (THC) Screen POSITIVE H Preliminary micro results at discharge 10/18/20 19:58 Blood Culture - Preliminary Blood - Venous No growth after 48 hours. 10/18/20 19:58 Blood Culture - Preliminary Blood - Venous No growth after 48 hours. Discharge Plan Discharge Anticipated Discharge Date/Time: 10/21/20 09:08 Patient Disposition: Left Against Medical Advice Referrals: [facility] [Primary Care Provider] - Discharge Medications: New buprenorphine-naloxone [Suboxone] 12-3 mg film 1 film sublingual Q24H Qty: 7 RF: 0 Narcan 4 mg/actuation spray,non-aerosol 4 mg intranasal Q2M PRN (Reason: opioid overdose) Qty: 2 RF: 0 cefuroxime axetil 500 mg tablet 500 mg PO BID 5 Days Qty: 10 RF: 0 Continued clonidine HCl 0.1 mg tablet 0.1 tab PO TID PRN (Reason: anxiety) RF: 0 sertraline 100 mg tablet 100 mg PO DAILY RF: 0 clonazepam 2 mg tablet 2 mg PO BID RF: 0 buprenorphine-naloxone [Suboxone] 12-3 mg film 1 strip sublingual DAILY RF: 0 Discharge Orders: Discharge Order (Routine); Ordered 10/21/20 Ordered By: Roman Trinidad Diet: advance to usual diet Activity on Discharge: As tolerated Care Plan Goals: Resolution of pneumonia Health Concerns: pneumonia, weight loss, substance use Plan of Treatment: Take Ceftrin as recommend and follow up with your docotor in a week, mention to your Doctor about weight loss You understaand you left against medical advise without completing CT and final instructions Patient Instructions: Viral Pneumonia (DC), Pneumonia (DC) Discharge Date/Time: 10/21/20 11:02
--- NOTE | 2020-10-21 10:54 | MHC.RECOVRN ---
50 year old female presented to [facility] ED via ambulance?on 10/18 due to from home, c/o weakness x1-2 months with vomiting since then. poor po intake. has been missing frequent psych appointments. per breakfast manager. Upon evaluation, pt was admitted for CAP. While in the hospital, pt has been continued on 12/3 mg Suboxone. T/w met with pt in 458 after consult to [facility] was placed. Pt reports being prescribed Suboxone through [facility] x 2 years. Pt currently on 12/3 mg daily. Pt reports having weekly appointments, on Tuesdays, and missed this past week due to hospitalization. Pt? is discharging today and is requesting a 3 day supply to get through until next Saturday.? Case was discussed with Macknezie Randall APRN, who will send prescription to [facility] on [address] in [place]. Pts RN aware.?
--- NOTE | 2020-10-21 13:19 | MHC.CM.PN ---
Patient left AMA after receiving Subaxone script.
[2020-10-22 12:56] LABS: Strep Pneumo Ag urine Not Detected (Not Detected)
[2020-10-26 03:57] LABS: Legionella Ag Urine Not Detected (Not Detected)
== END 2020-10-21 11:02 | disposition left against medical advice (07) | DRG 139 ==
LOC: HO.ED 18:53 → HO.EDOVER 22:34 → HO.IMC 10-19 00:14
PROVIDERS: Physician Assistant; Admitting Provider Internal Medicine; Emergency Provider Internal Medicine; Visit Provider Internal Medicine
DX: J18.9 Pneumonia, unspecified organism (principal); E27.8 Other specified disorders of adrenal gland; I95.9 Hypotension, unspecified; E78.5 Hyperlipidemia, unspecified; F43.10 Post-traumatic stress disorder, unspecified; F11.20 Opioid dependence, uncomplicated; Z20.822 Contact with and (suspected) exposure to COVID-19; Z79.899 Other long term (current) drug therapy
CPT/HCPCS: 36415; 70450; 71045; 71260; 74177; 80048; 80053; 80307; 81003; 82550; 83605; 83690; 83735; 84443; 84484; 84702; 85025; 85610; 85652; 85730; 86140; 87040; 87449; 87633; 87635; 87899; 93005; 96361; 96365; 96366; 96368; 96375; 99285; J0456; J0696; J1650; J2405; Q9967

== ENCOUNTER 2021-06-24 09:13 | Inpatient (IN) | payer MEDICAID, OTHER, SELFPAY ==
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
--- NOTE | ~2021-06-24 | XR_ITS ---
EXAMINATION: XR ABDOMEN CLINICAL INFORMATION: Constipation COMPARISON: None TECHNIQUE: Frontal view. FINDINGS: Surgical clip in the right upper quadrant from prior cholecystectomy. There is increased amount of stool projecting over the distribution of the colon raising suspicion for constipation. There is no evidence of bowel obstruction, however. There is no evidence of abnormal calcifications. There is no acute skeletal structure changes. There is no evidence of small-bowel obstruction. There is no free air in the abdomen. XR/XR KUB IMPRESSION: Increased amount of stool in the colon suggesting constipation. Please correlate with clinical presentation.
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
[2021-06-24 09:24] VITALS: BP 142/82; BP 148/92; PULSE 83; PULSE 84; RESP 18; TEMP 36.8; O2SAT 97; O2SAT 98; BMI 27.1
--- NOTE | 2021-06-24 09:36 | ECG_ITS ---
Test Reason : WEAKNESS Blood Pressure : / mmHG Vent. Rate : 067 BPM Atrial Rate : 067 BPM P-R Int : 138 ms QRS Dur : 088 ms QT Int : 408 ms P-R-T Axes : 021 087 -07 degrees QTc Int : 431 ms Normal sinus rhythm T wave abnormality, consider lateral ischemia Abnormal ECG When compared with ECG of 18-OCT-2020 17:46, Nonspecific T wave abnormality now evident in Inferior leads T wave inversion now evident in Lateral leads Heart rate has increased Referred By: Missy Oliveira Electronically Signed By:SAMIR PHAN MD
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
--- NOTE | 2021-06-24 09:54 | PC.NURSE ---
RN aware Poc 182
[2021-06-24 09:59] LABS: Glucose, Whole Blood 182 mg/dL (60-115)
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
[2021-06-24] MEDS: Morphine Sulfate 4 MG/ML CARTRIDGE IM (10:41)
[2021-06-24 11:29] LABS: Lactic Acid 1.4 mmol/L (0.5-2.0)
[2021-06-24 11:30] LABS: MANUAL DIFF FLAG NO
[2021-06-24 11:32] LABS: Basophils Percent Auto 0.1 % (0-2); Eosinophils Percent Auto 0.2 % (0-4); Hematocrit 35.9 % (37.0-47.0); Hemoglobin 12.1 g/dl (12.0-16.0); Imm Gran Abs Auto 0.03 X10*3/uL (0.00-0.03); Imm Gran Pct Auto 0.4 % (0.0-0.4); Lymphocytes Absolute Auto 0.9 X10*3/uL (1.2-4.9); Lymphocytes Percent Auto 11.2 % (20-40); Mean Corpuscular HGB Conc 33.7 g/dl (31.0-35.0); Mean Corpuscular Hemoglobin 31.8 pg (27.0-33.0); Mean Corpuscular Volume 94.5 fL (80.0-98.0); Mean Platelet Volume 9.7 fL (9.4-12.3); Monocytes Absolute Auto 0.5 X10*3/uL (0.1-1.2); Monocytes Percent Auto 6.1 % (2-11); Neutrophils Absolute Auto 6.6 x10*3/uL (2.0-8.3); Platelet Count 232 X10*3/uL (160-400)
[2021-06-24 12:00] VITALS: BP 113/70; PULSE 64; RESP 13; TEMP 36.8; O2SAT 96
[2021-06-24] MEDS: cefTRIAXone sodium 500 MG, Lidocaine HCl 1 % MPF 1 ML IM (12:03)
[2021-06-24 12:04] LABS: Erythrocyte Sedimentation Rate 7 MM/HR (0-20)
[2021-06-24 13:27] LABS: Ethanol < 10 mg/dL
[2021-06-24 13:39] LABS: Alanine Aminotransferase 37 U/L (0-31); Albumin Level 3.4 g/dL (3.5-5.0); Alkaline Phosphatase 43 U/L (39-117); Anion Gap 14 (12-20); Aspartate Amino Transferase 117 U/L (5-31); Bilirubin Direct 0.2 mg/dL (0.0-0.5); Bilirubin Total 0.4 mg/dL (0.0-1.0); Blood Urea Nitrogen 14 mg/dL (9-16); C Reactive Protein 1.69 mg/dL (< or = 0.50); Calcium 8.3 mg/dL (8.4-10.2); Carbon Dioxide 21 mmol/L (22-29); Chloride 105 mmol/L (96-108); Creatinine Clr Calc Pharmacy 82.5; Estimated Glomerular Filt Rate > 60; Glucose Random 232 mg/dL (60-115); Magnesium 1.8 mg/dL (1.6-2.6); Potassium 3.4 mmol/L (3.3-5.1); Sodium 137 mmol/L (135-145); Total Protein 6.1 g/dL (6.5-8.0)
[2021-06-24 14:11] VITALS: BP 93/58; PULSE 79; RESP 14; TEMP 36.8; O2SAT 97
[2021-06-24 14:44] LABS: Troponin-I High Sensitivity 4.3 ng/L (<3.5-17.0)
[2021-06-24] MEDS: 0.9 % Sodium Chloride 1,000 ML 999 ML IV ×2 (15:55→15:56)
[2021-06-24 16:39] VITALS: BP 108/71; PULSE 77; RESP 18; O2SAT 100
[2021-06-24 17:00] LABS: Appearance Urine CLEAR; Color Urine YELLOW; Glucose Urine UA 100 MG/DL (NEG); Leukocyte Esterase Urine NEG (NEG); Nitrite Urine NEG (NEG); Specific Gravity - Urine 1.025 (1.005-1.025); UACC Culture Trigger NO; Urine Blood TRACE (NEG); Urine Ketones 15 MG/DL (NEG); Urine Protein TRACE MG/DL (NEG-TRACE)
[2021-06-24 17:03] LABS: UPreg QC Valid YES; Urine Pregnancy NEGATIVE (NEGATIVE)
[2021-06-24 17:12] LABS: Amphetamine Screen Urine Not Detected (Not Detect); Barbiturates, Urine Not Detected (Not Detect); Benzodiazepines Screen Urine POSITIVE (Not Detect); Cocaine Screen Urine POSITIVE (Not Detect); Fentanyl, urine POSITIVE (Not Detect); Opiate Screen Urine POSITIVE (Not Detect); Phencyclidine Screen Urine Not Detected (Not Detect)
[2021-06-24 17:13] LABS: Mucus Urine 1+ /LPF; Squamous Epithelial Cell Urine TRACE /LPF; WBC Urine 0-2 /HPF (0-4)
[2021-06-24 17:22] LABS: Cannabinoid Screen Urine POSITIVE (Not Detect)
[2021-06-24] MEDS: methADONE HCl 20 MG/2 ML ORAL.CONC PO (18:07)
[2021-06-24 19:08] LABS: COVID-19 Test Negative (Negative)
[2021-06-24 19:42] VITALS: BP 113/75; PULSE 70; RESP 18; O2SAT 98
[2021-06-24] MEDS: 0.9 % Sodium Chloride 1,000 ML 999 ML IVCONT (20:16)
--- NOTE | 2021-06-24 21:35 | PC.NURSE ---
pt is a volentary bed search, pt had a steady gait. in now in bed. verified with charge that the pt is no longer a 1:1. pt is visable on the monitor and is calm and cooperative at this time.
[2021-06-25 06:12] VITALS: BP 97/56; PULSE 57; RESP 16; TEMP 36.6; O2SAT 97
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
[2021-06-25] MEDS: clonazePAM 1 MG TABLET 2 MG PO ×2 (09:35→20:22)
[2021-06-25] MEDS: Sertraline HCL 100 MG TABLET PO (09:35)
[2021-06-25 12:32] VITALS: BP 129/76; PULSE 64; RESP 16; TEMP 36.7; O2SAT 96
[2021-06-25] MEDS: methADONE HCl 20 MG/2 ML ORAL.CONC 10 MG PO (12:45)
--- NOTE | 2021-06-25 15:26 | PC.NURSE ---
appears to be resting but when asked states she's withdrawing more. skin pwd. unlabored resp. additional methadone to be requested. pt is on a tapered dose.
[2021-06-25 15:57] VITALS: BP 107/74; PULSE 78; TEMP 36.2; O2SAT 98
[2021-06-25] MEDS: methADONE HCl 20 MG/2 ML ORAL.CONC 5 MG PO (16:13)
[2021-06-25] MEDS: methADONE HCl 20 MG/2 ML ORAL.CONC 40 MG PO (18:32)
[2021-06-26 00:57] LABS: CT PCR NOT DETECTED (Not Detect.); NG PCR NOT DETECTED (Not Detect.)
[2021-06-26 04:03] VITALS: BP 119/71; PULSE 61; RESP 16; TEMP 36.8; O2SAT 97
--- NOTE | 2021-06-26 06:05 | PC.NURSE ---
Patient slept though the night, no distress observed/reported, out of room times once for bathroom use and back, medication compliant, behavior appropriate, disposition is voluntary inpatient bed search, will continue to monitor.
--- NOTE | 2021-06-26 07:23 | PC.NURSE ---
patient appears in no distress, respirations are even and unlabored, patient appears to remain asleep
[2021-06-26 07:56] VITALS: BP 148/99; PULSE 60; RESP 13; TEMP 36.7; O2SAT 100
[2021-06-26 09:05] LABS: HBc Num1 0.07 S/CO (0.00-0.79); HBsAGNum1 0.22 S/CO (0.00-0.99); HIV AB/AG Nonreactive (Nonreactive); HIV Num 1 0.06 S/CO (0.00-0.99); Hepatitis B Core Antibody Nonreactive (Nonreactive); Hepatitis B Surface Antigen Negative (Negative)
[2021-06-26 09:42] LABS: HBS Num1 19.12 mIU/mL (0-7.99); ~HepC Num1 16.09 S/CO (0.00-0.79); ~Hepatitis B Surface Antibody REACTIVE (Nonreactive); ~Hepatitis C Antibody Reactive (Nonreactive)
[2021-06-26] MEDS: clonazePAM 1 MG TABLET 2 MG PO (11:59)
[2021-06-26] MEDS: Sertraline HCL 100 MG TABLET PO (11:59)
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
[2021-06-26 18:00] VITALS: BP 123/83; PULSE 66; TEMP 36.6; O2SAT 98
[2021-06-26] MEDS: methADONE HCl 20 MG/2 ML ORAL.CONC 40 MG PO (19:05)
[2021-06-26 21:26] VITALS: BP 123/83; PULSE 66
[2021-06-26] MEDS: cloNIDine HCL 0.1 MG TABLET 0.2 MG PO (21:26)
[2021-06-26] MEDS: OLANZapine 5 MG TABLET PO (21:26)
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
[2021-06-27 06:00] VITALS: BP 94/56; PULSE 54; TEMP 36.6
[2021-06-27] MEDS: Acetaminophen 325 MG TABLET 650 MG PO (08:51)
[2021-06-27] MEDS: Sertraline HCL 100 MG TABLET PO (08:52)
[2021-06-27] MEDS: methADONE HCl 20 MG/2 ML ORAL.CONC 40 MG PO (08:52)
--- NOTE | 2021-06-27 09:00 | ECG_ITS ---
Test Reason : polysubstance use, hx endocarditis Blood Pressure : / mmHG Vent. Rate : 051 BPM Atrial Rate : 051 BPM P-R Int : 178 ms QRS Dur : 088 ms QT Int : 478 ms P-R-T Axes : 077 080 081 degrees QTc Int : 440 ms Sinus bradycardia Nonspecific T wave abnormality Abnormal ECG When compared with ECG of 24-JUN-2021 09:48, T wave inversion less evident in Lateral leads Referred By: Nicole Lugo Electronically Signed By:SAMIR PHAN MD
[2021-06-27 09:16] LABS: Estimated Average Glucose 100 mg/dL; Hemoglobin A1c % 5.1 %
[2021-06-27 09:17] LABS: Cholesterol 129 mg/dL; HDL Cholesterol 30 mg/dL; LDL Cholesterol Calculated 77 mg/dl; Magnesium 1.8 mg/dL (1.6-2.6); Triglycerides 110 mg/dL
[2021-06-27 09:38] LABS: Free T4 (Free Thyroxine) 0.76 ng/dL (0.71-1.85); Thyroid Stimulating Hormone 8.79 uIU/mL (0.32-4.0)
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
[2021-06-27 10:03] LABS: Folate 9.7 ng/mL (> or = 4.0); Vitamin B12 300 pg/mL (200-900)
--- NOTE | 2021-06-27 11:28 | MHC.RECOVRN ---
Met with pt in 510 to f/u regarding methadone initiation. Upon entering pts room, pt asleep, easily arousable. Pt does appear tired during conversation. Pt reports withdrawal symptoms including chills, body aches, restlessness, and anxiety. Pt would like to increase methadone dose. Discussed case with Mackenzie Randall APRN. SW aware pt will need OTP linkage.
[2021-06-27 18:00] VITALS: BP 83/54; PULSE 81; RESP 18; TEMP 36.9; O2SAT 97
[2021-06-27] MEDS: Docusate Sodium 100 MG CAPSULE PO (20:17)
[2021-06-27] MEDS: OLANZapine 5 MG TABLET PO (20:18)
[2021-06-28 06:30] VITALS: BP 115/71; PULSE 59; RESP 16; TEMP 36.1; O2SAT 98
[2021-06-28 08:34] LABS: Hepatitis A Antibody IgM 0.25 Index (0-0.79); ~Hepatitis A Antibody IgM Nonreactive (Nonreactive)
[2021-06-28] MEDS: Docusate Sodium 100 MG CAPSULE PO ×2 (08:48→20:20)
[2021-06-28] MEDS: polyethylene glycoL 3350 17 GM POWD.PACK PO (08:49)
[2021-06-28] MEDS: Sertraline HCL 100 MG TABLET PO (08:49)
[2021-06-28] MEDS: methADONE HCl 20 MG/2 ML ORAL.CONC 45 MG PO (08:49)
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
[2021-06-28 18:30] VITALS: BP 111/64; PULSE 68; RESP 18; TEMP 36.4; O2SAT 96
[2021-06-28 18:31] LABS: Thyroid Peroxidase Antibodies 401 IU/mL (<9)
[2021-06-28] MEDS: traZODone HCL 50 MG TABLET PO (20:20)
[2021-06-28] MEDS: OLANZapine 10 MG TABLET PO (20:20)
--- NOTE | 2021-06-28 20:37 | PC.NURSE ---
Katrina from lab called in microbiology blood culture Gram Positive Cocci. Stefany made aware.
[2021-06-29 06:00] VITALS: BP 119/80; TEMP 36.6; O2SAT 100
[2021-06-29 07:00] VITALS: BMI 22.9
[2021-06-29] MEDS: polyethylene glycoL 3350 17 GM POWD.PACK PO (08:04)
[2021-06-29] MEDS: Docusate Sodium 100 MG CAPSULE PO ×2 (08:04→20:26)
[2021-06-29] MEDS: methADONE HCl 20 MG/2 ML ORAL.CONC 50 MG PO (08:04)
[2021-06-29] MEDS: Sertraline HCL 50 MG TABLET PO (08:04)
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
--- NOTE | 2021-06-29 11:06 | MHC.RECOVRN ---
Met with pt to f/u regarding methadone dose titration. Pt reports continued withdrawal symptoms including body aches, chills, loose stool. Pt would like to increase dose with a goal to maintain at 60 mg. Pt will need OTP linkage prior to dc. Pt provided with area resources and community support information. Discussed with Mackenzie Randall APRN. Will continue to follow.
[2021-06-29 18:10] VITALS: BP 124/73; PULSE 56; RESP 16; TEMP 36.8; O2SAT 100
[2021-06-29] MEDS: traZODone HCL 50 MG TABLET PO (20:26)
[2021-06-29] MEDS: OLANZapine 10 MG TABLET PO (20:26)
[2021-06-30 05:50] VITALS: BP 130/66; PULSE 66; RESP 18; TEMP 36.4; O2SAT 98
[2021-06-30] MEDS: Sertraline HCL 50 MG TABLET PO (08:02)
[2021-06-30] MEDS: Docusate Sodium 100 MG CAPSULE PO ×2 (08:02→20:32)
[2021-06-30] MEDS: methADONE HCl 20 MG/2 ML ORAL.CONC 55 MG PO (08:03)
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
[2021-06-30 19:10] VITALS: BP 118/64; PULSE 61; RESP 18; TEMP 37.5; O2SAT 95
[2021-06-30] MEDS: OLANZapine 7.5 MG TABLET 15 MG PO (20:32)
[2021-06-30] MEDS: QUEtiapine Fumarate 25 MG TABLET PO (22:09)
[2021-07-01 06:00] VITALS: BP 115/70; PULSE 65; RESP 18; TEMP 36.8; O2SAT 97
[2021-07-01] MEDS: Levothyroxine Sodium 75 MCG TABLET PO (06:22)
[2021-07-01] MEDS: Sertraline HCL 25 MG TABLET PO (08:23)
[2021-07-01] MEDS: Docusate Sodium 100 MG CAPSULE PO ×2 (08:23→19:22)
[2021-07-01] MEDS: methADONE HCl 20 MG/2 ML ORAL.CONC 55 MG PO (08:25)
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
[2021-07-01 19:22] VITALS: BP 122/75; PULSE 70
[2021-07-01] MEDS: cloNIDine HCL 0.1 MG TABLET PO (19:22)
[2021-07-01] MEDS: OLANZapine 7.5 MG TABLET 15 MG PO (19:30)
[2021-07-02] MEDS: Levothyroxine Sodium 75 MCG TABLET PO (04:54)
[2021-07-02 06:00] VITALS: BP 104/59; PULSE 89; RESP 18; TEMP 36.6; O2SAT 97
[2021-07-02] MEDS: Docusate Sodium 100 MG CAPSULE PO ×2 (08:25→23:23)
[2021-07-02] MEDS: polyethylene glycoL 3350 17 GM POWD.PACK PO (08:25)
[2021-07-02] MEDS: Sertraline HCL 25 MG TABLET PO (08:25)
[2021-07-02] MEDS: methADONE HCl 20 MG/2 ML ORAL.CONC 55 MG PO (08:25)
[2021-07-02 13:48] VITALS: BP 107/67; PULSE 77
[2021-07-02] MEDS: cloNIDine HCL 0.1 MG TABLET PO (13:48)
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
[2021-07-02 15:32] LABS: Iron 53 mcg/dL (30-160); Percent Iron Saturation 19 % (15-50); Total Iron Binding Capacity 285 mcg/dL (228-428); Unsaturated Iron Binding 232 ug/dL
[2021-07-02 20:50] VITALS: BP 86/51; PULSE 64; TEMP 36.5; O2SAT 98
[2021-07-02] MEDS: OLANZapine 7.5 MG TABLET 15 MG PO (23:23)
[2021-07-03 03:13] LABS: Vitamin D 25-OH Total 21.7 ng/mL (>30)
[2021-07-03 06:00] VITALS: BP 98/63; PULSE 69; RESP 18; TEMP 36.3; O2SAT 97
[2021-07-03] MEDS: Levothyroxine Sodium 75 MCG TABLET PO (06:37)
[2021-07-03] MEDS: Sertraline HCL 25 MG TABLET PO (08:22)
[2021-07-03] MEDS: Docusate Sodium 100 MG CAPSULE PO ×2 (08:22→22:42)
[2021-07-03] MEDS: methADONE HCl 20 MG/2 ML ORAL.CONC 55 MG PO (08:23)
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
[2021-07-03 15:17] LABS: Alanine Aminotransferase 17 U/L (0-31); Albumin Level 3.6 g/dL (3.5-5.0); Alkaline Phosphatase 51 U/L (39-117); Anion Gap 11 (12-20); Aspartate Amino Transferase 26 U/L (5-31); Bilirubin Total 0.3 mg/dL (0.0-1.0); Blood Urea Nitrogen 24 mg/dL (9-16); Calcium 8.9 mg/dL (8.4-10.2); Carbon Dioxide 29 mmol/L (22-29); Chloride 103 mmol/L (96-108); Creatinine Clr Calc Pharmacy 70.3; Estimated Glomerular Filt Rate > 60; Glucose Random 109 mg/dL (60-115); Potassium 4.4 mmol/L (3.3-5.1); Sodium 139 mmol/L (135-145); Total Protein 6.6 g/dL (6.5-8.0)
[2021-07-03] MEDS: polyethylene glycoL 3350 17 GM POWD.PACK PO (17:04)
[2021-07-03 18:00] VITALS: BP 88/51; PULSE 68; RESP 17; TEMP 36.9; O2SAT 97
[2021-07-03] MEDS: OLANZapine 7.5 MG TABLET 15 MG PO (22:41)
[2021-07-03 22:44] VITALS: BP 88/51; PULSE 67
[2021-07-03] MEDS: QUEtiapine Fumarate 25 MG TABLET PO (23:10)
[2021-07-04 05:42] VITALS: BP 112/74; PULSE 64; RESP 16; TEMP 36.2; O2SAT 98
[2021-07-04] MEDS: Levothyroxine Sodium 75 MCG TABLET PO (06:37)
[2021-07-04] MEDS: Docusate Sodium 100 MG CAPSULE PO ×2 (08:37→20:12)
[2021-07-04] MEDS: methADONE HCl 20 MG/2 ML ORAL.CONC 55 MG PO (08:38)
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
[2021-07-04] MEDS: QUEtiapine Fumarate 25 MG TABLET PO (12:30)
[2021-07-04] MEDS: LORazepam 1 MG TABLET PO (14:49)
[2021-07-04] MEDS: polyethylene glycoL 3350 17 GM POWD.PACK PO (17:45)
[2021-07-04 18:00] VITALS: BP 106/59; PULSE 74; RESP 16; TEMP 36.9; O2SAT 97
[2021-07-04 20:11] VITALS: BP 106/59; PULSE 74
[2021-07-04] MEDS: cloNIDine HCL 0.1 MG TABLET 0.05 MG PO (20:11)
[2021-07-04] MEDS: OLANZapine 7.5 MG TABLET 15 MG PO (20:12)
[2021-07-04] MEDS: traZODone HCL 50 MG TABLET PO (20:19)
[2021-07-05] MEDS: Levothyroxine Sodium 75 MCG TABLET PO (06:09)
[2021-07-05 06:21] VITALS: BP 133/68; PULSE 82
[2021-07-05] MEDS: cloNIDine HCL 0.1 MG TABLET 0.05 MG PO (06:21)
[2021-07-05] MEDS: methADONE HCl 20 MG/2 ML ORAL.CONC 55 MG PO (08:02)
[2021-07-05 11:30] VITALS: BP 99/66; PULSE 73
[2021-07-05] MEDS: Propranolol HCL 10 MG TABLET PO ×3 (11:30→21:02)
[2021-07-05 14:18] VITALS: BP 98/64; PULSE 72
[2021-07-05] MEDS: polyethylene glycoL 3350 17 GM POWD.PACK PO (18:07)
[2021-07-05] MEDS: Benztropine Mesylate 1 MG TABLET PO ×2 (18:36→21:02)
[2021-07-05] MEDS: LORazepam 1 MG TABLET PO (18:37)
[2021-07-05 21:01] VITALS: BP 106/64; PULSE 80; RESP 16; TEMP 36.2; O2SAT 98
[2021-07-05 21:02] VITALS: BP 106/64; PULSE 80
[2021-07-05] MEDS: Docusate Sodium 100 MG CAPSULE PO (21:02)
[2021-07-05] MEDS: traZODone HCL 50 MG TABLET PO (21:42)
[2021-07-06] MEDS: Levothyroxine Sodium 75 MCG TABLET PO (05:08)
[2021-07-06 05:39] VITALS: BP 102/68; PULSE 67; RESP 17; TEMP 36.2; O2SAT 98
[2021-07-06 07:00] VITALS: BMI 23.7
[2021-07-06 08:36] VITALS: BP 110/69; PULSE 76
[2021-07-06] MEDS: methADONE HCl 20 MG/2 ML ORAL.CONC 55 MG PO (08:36)
[2021-07-06] MEDS: Propranolol HCL 10 MG TABLET PO (08:36)
[2021-07-06] MEDS: Docusate Sodium 100 MG CAPSULE PO ×2 (08:36→20:31)
[2021-07-06] MEDS: Benztropine Mesylate 1 MG TABLET PO ×2 (08:36→20:31)
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
[2021-07-06 14:12] VITALS: BP 116/72; PULSE 76
[2021-07-06] MEDS: Propranolol HCL 20 MG TABLET PO ×2 (14:12→20:31)
[2021-07-06] MEDS: polyethylene glycoL 3350 17 GM POWD.PACK PO (17:39)
[2021-07-06 19:14] VITALS: BP 118/69; PULSE 73; RESP 17; TEMP 36.9; O2SAT 99
[2021-07-06 20:31] VITALS: BP 104/58; PULSE 138
[2021-07-06] MEDS: Mirtazapine 15 MG TABLET PO (20:31)
[2021-07-07 03:09] VITALS: BP 108/60; PULSE 82; RESP 16; TEMP 36.8; O2SAT 100
[2021-07-07] MEDS: Acetaminophen 325 MG TABLET 650 MG PO (03:12)
[2021-07-07] MEDS: LORazepam 1 MG TABLET 2 MG PO (03:12)
[2021-07-07] MEDS: Levothyroxine Sodium 75 MCG TABLET PO (05:07)
[2021-07-07 08:08] VITALS: BP 95/68; PULSE 84
[2021-07-07] MEDS: Docusate Sodium 100 MG CAPSULE PO ×2 (08:08→20:16)
[2021-07-07] MEDS: Propranolol HCL 20 MG TABLET PO ×2 (08:08→14:11)
[2021-07-07] MEDS: Benztropine Mesylate 1 MG TABLET PO ×2 (08:08→20:16)
[2021-07-07] MEDS: methADONE HCl 20 MG/2 ML ORAL.CONC 55 MG PO (08:08)
[2021-07-07 08:12] VITALS: BP 95/68; PULSE 84; RESP 16
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
[2021-07-07 14:11] VITALS: BP 106/70; PULSE 75
[2021-07-07] MEDS: Paliperidone ER 3 MG TAB.ER.24 PO (14:11)
[2021-07-07 18:00] VITALS: BP 112/59; PULSE 73; TEMP 37.1
[2021-07-07] MEDS: LORazepam 1 MG TABLET PO (20:16)
[2021-07-07] MEDS: traZODone HCL 100 MG TABLET PO (20:16)
[2021-07-08] MEDS: Levothyroxine Sodium 75 MCG TABLET PO (05:53)
[2021-07-08 05:59] VITALS: BP 103/69; PULSE 71; RESP 18; TEMP 36.9; O2SAT 96
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
[2021-07-08 08:30] VITALS: BP 111/59; PULSE 81
[2021-07-08] MEDS: Propranolol HCL 20 MG TABLET PO (08:30)
[2021-07-08] MEDS: Docusate Sodium 100 MG CAPSULE PO ×2 (08:30→21:36)
[2021-07-08] MEDS: Benztropine Mesylate 1 MG TABLET PO ×2 (08:31→21:36)
[2021-07-08] MEDS: polyethylene glycoL 3350 17 GM POWD.PACK PO (08:31)
[2021-07-08] MEDS: methADONE HCl 20 MG/2 ML ORAL.CONC 55 MG PO (08:31)
[2021-07-08] MEDS: Paliperidone ER 3 MG TAB.ER.24 PO (08:33)
--- NOTE | 2021-07-08 09:44 | MHC.RECOVSUP ---
Recovery Support note: This content writer followed up with patient to discuss methadone dosing and withdrawal symptoms. Patient reports that she is waking up feeling sick in a pool of sweat. Patient also reports restless legs and severe anxiety, stating my anxiety is a twenty out of ten. Patient also reports feeling like she is withdrawing from benzodiazepines. Discussed case with Mackenzie Randall NP.
[2021-07-08] MEDS: Acetaminophen 325 MG TABLET 650 MG PO (13:02)
[2021-07-08] MEDS: Magnesium Hydrox/Alum Hydrox 30 ML ORAL.SUSP PO (14:58)
[2021-07-08 15:23] VITALS: BP 100/59; PULSE 87; O2SAT 97
[2021-07-08 15:27] VITALS: BP 100/59; PULSE 87
[2021-07-08] MEDS: LORazepam 1 MG TABLET PO ×2 (17:50→21:35)
[2021-07-08 21:20] VITALS: BP 98/57; PULSE 85; TEMP 36.8
[2021-07-08] MEDS: traZODone HCL 100 MG TABLET PO (21:36)
[2021-07-09] MEDS: Acetaminophen 325 MG TABLET 650 MG PO (00:37)
[2021-07-09] MEDS: diphenhydrAMINE HCL 25 MG TABLET 50 MG PO (02:57)
[2021-07-09 06:00] VITALS: BP 94/65; PULSE 90; RESP 18; TEMP 36.1; O2SAT 98
[2021-07-09] MEDS: Levothyroxine Sodium 75 MCG TABLET PO (06:00)
[2021-07-09] MEDS: Paliperidone ER 3 MG TAB.ER.24 PO (08:34)
[2021-07-09] MEDS: Docusate Sodium 100 MG CAPSULE PO ×2 (08:34→20:01)
[2021-07-09] MEDS: LORazepam 1 MG TABLET PO ×3 (08:35→20:02)
[2021-07-09] MEDS: Benztropine Mesylate 1 MG TABLET PO ×2 (08:35→20:01)
[2021-07-09] MEDS: methADONE HCl 20 MG/2 ML ORAL.CONC 55 MG PO (08:38)
--- NOTE | 2021-07-09 12:35 | P.PNADD_ITS ---
Subjective Subjective Date of Service: 07/09/21 Reason For Visit: PTSD, SI, Polysubstance use Interim History: Patient seen in follow up Methadone dose currently at 55mg Reports that she is feeling nauseous upon awakening, and is waking up in a pool of sweat in the evenings. Discussed plans for supporting recovery following discharge, patient not open to [facility] or any other treatment setting--limited insight to ADOLFO--does not feel that her substance use is an issue. Chart reviewed and patient is now on scheduled Lorazepam TID. Review of Systems Constitutional: Reports as per HPI Mental Status Exam Mental Status Exam Patient Appearance: Well Grooomed and Appropriate Patient Orientation: Person, Place, Time and Situation Level of Consciousness: Awake and Appropriate Patient Behavior: Talkative and Cooperative Mood Description: Calm Affect Description: Calm Patient Cognition Impaired: No Thought Process: Intact Thought Content: positive for [place] Judgement: Fair Diagnostics Vital Signs (24Hr): Vital Signs - 24 hr 07/08/21 15:23 07/08/21 15:27 07/08/21 21:20 Temperature 98.2 F Pulse Rate 87 87 85 Respiratory Rate Blood Pressure 100/59 L 100/59 L 98/57 L Pulse Oximetry 97 07/09/21 06:00 Temperature 96.9 F Pulse Rate 90 Respiratory Rate 18 Blood Pressure 94/65 Pulse Oximetry 98 BMI result Body Mass Index 23.7 Labs Results: 06/24/21 11:11 07/03/21 14:54 Imaging Radiology Impressions: ITS Impressions Chest X-Ray 06/24/21 09:36 IMPRESSION: Unremarkable chest examination. Hand/Wrist X-Ray 06/27/21 19:55 IMPRESSION: Essentially negative exam aside from some minimal degenerative changes proximal interphalangeal joints as described above. An explanation for the patient's inability to move their fingers has not been found. KUB X-Ray 07/03/21 16:50 IMPRESSION: Increased amount of stool in the colon suggesting constipation. Please correlate with clinical presentation. Medications Medications Current Medications Acetaminophen (Acetaminophen 325 Mg Tablet) 650 mg PO Q6H PRN PRN Reason: Headache/Pain Mild Scale (1-3) Last Admin: 07/09/21 00:37 Dose: 650 mg Documented by: Al Hydroxide/Mg Hydroxide (Magnesium Hydrox/Alum Hydrox 30 Ml Oral.Susp) 30 ml PO Q6H PRN PRN Reason: Heartburn/Nausea Last Admin: 07/08/21 14:58 Dose: 30 ml Documented by: Benztropine Mesylate (Benztropine Mesylate 1 Mg Tablet) 1 mg PO BID [facility] Last Admin: 07/09/21 08:35 Dose: 1 mg Documented by: Docusate Sodium (Docusate Sodium 100 Mg Capsule) 100 mg PO BID [facility] Last Admin: 07/09/21 08:34 Dose: 100 mg Documented by: Levothyroxine Sodium (Levothyroxine Sodium 75 Mcg Tablet) 75 mcg PO DAILY@0600 [facility] Last Admin: 07/09/21 06:00 Dose: 75 mcg Documented by: Lorazepam (Lorazepam 1 Mg Tablet) 1 mg PO TID [facility] Last Admin: 07/09/21 08:35 Dose: 1 mg Documented by: Magnesium Hydroxide (Milk Of Magnesia 30 Ml Oral.Susp) 30 ml PO DAILY PRN PRN Reason: Constipation Methadone HCl (Methadone Hcl 20 Mg/2 Ml Oral.Conc) 55 mg PO DAILY [facility] Last Admin: 07/09/21 08:38 Dose: 55 mg Documented by: Paliperidone (Paliperidone Er 3 Mg Tab.Er.24) 3 mg PO DAILY [facility] Last Admin: 07/09/21 08:34 Dose: 3 mg Documented by: Polyethylene Glycol (Polyethylene Glycol 3350 17 Gm Powd.Pack) 17 gm PO BIDPC [facility] Last Admin: 07/09/21 10:44 Dose: Not Given Documented by: Propranolol HCl (Propranolol Hcl 20 Mg Tablet) 20 mg PO TID [facility]; Protocol Last Admin: 07/09/21 09:25 Dose: Not Given Documented by: Psyllium Hydrophilic Mucilloid (Psyllium Seed 3.4 Gm Powd.Pack) 3.4 gm PO BEDTIME [facility] Last Admin: 07/08/21 21:59 Dose: Not Given Documented by: Trazodone HCl (Trazodone Hcl 100 Mg Tablet) 100 mg PO BEDTIME [facility] Last Admin: 07/08/21 21:36 Dose: 100 mg Documented by: Allergies Allergies Allergy/AdvReac Type Severity Reaction Status Date / Time No Known Allergies Allergy Verified 10/19/20 02:43 [No Known Allergies*] Assessment & Plan Assessment & Plan (1) Opioid use disorder: Status: Acute Code(s): F11.90 - Opioid use, unspecified, uncomplicated Assessment and Plan: * Will increase methadone dose to 60mg tomorrow morning * monitor closely for sedation given recent increase in lorazepam dose * if possible, avoid discharge with benzodiazepines given limited insight with ADOLFO and risk of respiratory depression and overdose I spent ___25__ minutes with the patient and/or on the patient floor today, greater than?50% of which was spent counseling/coordinating care.
--- NOTE | 2021-07-09 13:23 | HO.PSYCHPN ---
Subjective Subjective Date of Service: 07/09/21 Reason For Visit: PTSD, SI, Polysubstance use Subjective Notes: Conditional Voluntary Interim History: Mood depressed. No change in delusions. Less akathisia noted. Review of Systems Medical Review of Systems: unchanged Diagnostics Vital Signs (24Hr): Vital Signs - 24 hr 07/08/21 15:23 07/08/21 15:27 07/08/21 21:20 Temperature 98.2 F Pulse Rate 87 87 85 Respiratory Rate Blood Pressure 100/59 L 100/59 L 98/57 L Pulse Oximetry 97 07/09/21 06:00 Temperature 96.9 F Pulse Rate 90 Respiratory Rate 18 Blood Pressure 94/65 Pulse Oximetry 98 BMI result Body Mass Index 23.7 Labs Results: 06/24/21 11:11 07/03/21 14:54 Imaging Radiology Impressions: ITS Impressions Chest X-Ray 06/24/21 09:36 IMPRESSION: Unremarkable chest examination. Hand/Wrist X-Ray 06/27/21 19:55 IMPRESSION: Essentially negative exam aside from some minimal degenerative changes proximal interphalangeal joints as described above. An explanation for the patient's inability to move their fingers has not been found. KUB X-Ray 07/03/21 16:50 IMPRESSION: Increased amount of stool in the colon suggesting constipation. Please correlate with clinical presentation. Medications Medications Current Medications Acetaminophen (Acetaminophen 325 Mg Tablet) 650 mg PO Q6H PRN PRN Reason: Headache/Pain Mild Scale (1-3) Last Admin: 07/09/21 00:37 Dose: 650 mg Documented by: Al Hydroxide/Mg Hydroxide (Magnesium Hydrox/Alum Hydrox 30 Ml Oral.Susp) 30 ml PO Q6H PRN PRN Reason: Heartburn/Nausea Last Admin: 07/08/21 14:58 Dose: 30 ml Documented by: Benztropine Mesylate (Benztropine Mesylate 1 Mg Tablet) 1 mg PO BID [facility] Last Admin: 07/09/21 08:35 Dose: 1 mg Documented by: Docusate Sodium (Docusate Sodium 100 Mg Capsule) 100 mg PO BID [facility] Last Admin: 07/09/21 08:34 Dose: 100 mg Documented by: Levothyroxine Sodium (Levothyroxine Sodium 75 Mcg Tablet) 75 mcg PO DAILY@0600 [facility] Last Admin: 07/09/21 06:00 Dose: 75 mcg Documented by: Lorazepam (Lorazepam 1 Mg Tablet) 1 mg PO TID [facility] Last Admin: 07/09/21 08:35 Dose: 1 mg Documented by: Magnesium Hydroxide (Milk Of Magnesia 30 Ml Oral.Susp) 30 ml PO DAILY PRN PRN Reason: Constipation Methadone HCl (Methadone Hcl 20 Mg/2 Ml Oral.Conc) 60 mg PO DAILY [facility] Paliperidone (Paliperidone Er 3 Mg Tab.Er.24) 3 mg PO DAILY [facility] Last Admin: 07/09/21 08:34 Dose: 3 mg Documented by: Polyethylene Glycol (Polyethylene Glycol 3350 17 Gm Powd.Pack) 17 gm PO BIDPC [facility] Last Admin: 07/09/21 10:44 Dose: Not Given Documented by: Propranolol HCl (Propranolol Hcl 20 Mg Tablet) 20 mg PO TID [facility]; Protocol Last Admin: 07/09/21 09:25 Dose: Not Given Documented by: Psyllium Hydrophilic Mucilloid (Psyllium Seed 3.4 Gm Powd.Pack) 3.4 gm PO BEDTIME [facility] Last Admin: 07/08/21 21:59 Dose: Not Given Documented by: Trazodone HCl (Trazodone Hcl 100 Mg Tablet) 100 mg PO BEDTIME [facility] Last Admin: 07/08/21 21:36 Dose: 100 mg Documented by: Allergies Allergies Allergy/AdvReac Type Severity Reaction Status Date / Time No Known Allergies Allergy Verified 10/19/20 02:43 [No Known Allergies*] Assessment & Plan Assessment & Plan (1) Opioid use disorder: Status: Acute Code(s): F11.90 - Opioid use, unspecified, uncomplicated Assessment and Plan: Will increase methadone dose to 60mg tomorrow morning monitor closely for sedation given recent increase in lorazepam dose if possible, avoid discharge with benzodiazepines given limited insight with ADOLFO and risk of respiratory depression and overdose Assessment and Plan: Ct meds. Ct Loraz for a short course then decrease as akathisia improves. ct Invega. I spent minutes with the patient and/or on the patient floor today, greater than?50% of which was spent counseling/coordinating care. Reason for contiued inpatient stay Substantial Risk for: inability to function
[2021-07-09] MEDS: polyethylene glycoL 3350 17 GM POWD.PACK PO (17:05)
[2021-07-09 17:33] VITALS: BP 106/66; PULSE 89; RESP 18; TEMP 37.1; O2SAT 98
[2021-07-09] MEDS: traZODone HCL 100 MG TABLET PO (20:02)
[2021-07-10 06:00] VITALS: BP 115/77; PULSE 107; RESP 18; TEMP 36.4; O2SAT 98
[2021-07-10] MEDS: Levothyroxine Sodium 75 MCG TABLET PO (06:25)
[2021-07-10] MEDS: Benztropine Mesylate 1 MG TABLET PO ×4 (06:44→20:29)
[2021-07-10] MEDS: LORazepam 1 MG TABLET PO ×2 (06:44→08:19)
[2021-07-10] MEDS: Docusate Sodium 100 MG CAPSULE PO ×2 (08:18→20:28)
[2021-07-10] MEDS: Paliperidone ER 3 MG TAB.ER.24 PO (08:18)
[2021-07-10] MEDS: methADONE HCl 20 MG/2 ML ORAL.CONC 60 MG PO (08:19)
[2021-07-10] MEDS: polyethylene glycoL 3350 17 GM POWD.PACK PO (08:19)
[2021-07-10 09:43] LABS: TSH reflex Free T4 5.14 uIU/mL (0.32-4.0)
--- NOTE | 2021-07-10 10:21 | P.PNPSI_ITS ---
Subjective Subjective Date of Service: 07/10/21 Reason For Visit: PTSD, SI, Polysubstance use Interim History: pt says she's ok; still anxious; she says she has intermittent SI which is passive and that she'll probably always have it... 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 She said she stopped the Propranolol since it made her nauseus, but agrees to retry it at lower dose. Some AVH but less. Mental Status Exam Mental Status Exam Narrative: Appearance: casually groomed, improved hygiene in NAD Behavior:cooperative psychomotor:no agitation or retardation noted, Speech:clear, normal rate/rhythm, volume Thought process: goal oriented, linear, can be circumstantial Thought content:still anxious Mood:ok Affect: congruent, brighter SI:intermittent and passive HI:none VH/AH: sees ghosts at night Delusions:none expressed Insight/judgment:fair Diagnostics Vital Signs (24Hr): Vital Signs - 24 hr 07/09/21 17:33 07/10/21 06:00 Temperature 98.7 F 97.6 F Pulse Rate 89 107 H Respiratory Rate 18 18 Blood Pressure 106/66 115/77 Pulse Oximetry 98 98 BMI result Body Mass Index 23.7 Labs Results: 06/24/21 11:11 07/03/21 14:54 Labs: Laboratory Results - last 48 hr 07/10/21 07:49 TSH 5.14 H Imaging Radiology Impressions: ITS Impressions Chest X-Ray 06/24/21 09:36 IMPRESSION: Unremarkable chest examination. Hand/Wrist X-Ray 06/27/21 19:55 IMPRESSION: Essentially negative exam aside from some minimal degenerative changes proximal interphalangeal joints as described above. An explanation for the patient's inability to move their fingers has not been found. KUB X-Ray 07/03/21 16:50 IMPRESSION: Increased amount of stool in the colon suggesting constipation. Please correlate with clinical presentation. Medications Medications Current Medications Acetaminophen (Acetaminophen 325 Mg Tablet) 650 mg PO Q6H PRN PRN Reason: Headache/Pain Mild Scale (1-3) Last Admin: 07/09/21 00:37 Dose: 650 mg Documented by: Al Hydroxide/Mg Hydroxide (Magnesium Hydrox/Alum Hydrox 30 Ml Oral.Susp) 30 ml PO Q6H PRN PRN Reason: Heartburn/Nausea Last Admin: 07/08/21 14:58 Dose: 30 ml Documented by: Benztropine Mesylate (Benztropine Mesylate 1 Mg Tablet) 1 mg PO TID [facility] Last Admin: 07/10/21 08:19 Dose: 1 mg Documented by: Docusate Sodium (Docusate Sodium 100 Mg Capsule) 100 mg PO BID [facility] Last Admin: 07/10/21 08:18 Dose: 100 mg Documented by: Levothyroxine Sodium (Levothyroxine Sodium 75 Mcg Tablet) 75 mcg PO DAILY@0600 [facility] Last Admin: 07/10/21 06:25 Dose: 75 mcg Documented by: Lorazepam (Lorazepam 1 Mg Tablet) 1 mg PO TID [facility] Last Admin: 07/10/21 08:19 Dose: 1 mg Documented by: Magnesium Hydroxide (Milk Of Magnesia 30 Ml Oral.Susp) 30 ml PO DAILY PRN PRN Reason: Constipation Methadone HCl (Methadone Hcl 20 Mg/2 Ml Oral.Conc) 60 mg PO DAILY [facility] Last Admin: 07/10/21 08:19 Dose: 60 mg Documented by: Paliperidone (Paliperidone Er 3 Mg Tab.Er.24) 3 mg PO DAILY [facility] Last Admin: 07/10/21 08:18 Dose: 3 mg Documented by: Polyethylene Glycol (Polyethylene Glycol 3350 17 Gm Powd.Pack) 17 gm PO BIDPC [facility] Last Admin: 07/10/21 08:19 Dose: 17 gm Documented by: Propranolol HCl (Propranolol Hcl 20 Mg Tablet) 20 mg PO TID [facility]; Protocol Last Admin: 07/10/21 08:22 Dose: Not Given Documented by: Psyllium Hydrophilic Mucilloid (Psyllium Seed 3.4 Gm Powd.Pack) 3.4 gm PO BEDTIME [facility] Last Admin: 07/09/21 20:02 Dose: 3.4 gm Documented by: Trazodone HCl (Trazodone Hcl 100 Mg Tablet) 100 mg PO BEDTIME [facility] Last Admin: 07/09/21 20:02 Dose: 100 mg Documented by: Allergies Allergies Allergy/AdvReac Type Severity Reaction Status Date / Time No Known Allergies Allergy Verified 10/19/20 02:43 [No Known Allergies*] Assessment & Plan Assessment & Plan (1) Opioid use disorder: Status: Acute Code(s): F11.90 - Opioid use, unspecified, uncomplicated Assessment and Plan: * methadone dose to 60mg * dc ativan since not for discharge * lowererd propranol to 10mg TID since she c/o of nausa at 20mg * trazodone 150mg for insomnia Assessment and Plan: Ct meds. Ct Loraz for a short course then decrease as akathisia improves. ct Invega. I spent minutes with the patient and/or on the patient floor today, greater than?50% of which was spent counseling/coordinating care. Reason for contiued inpatient stay Substantial Risk for: other
[2021-07-10 10:23] LABS: Free T4 (Free Thyroxine) 0.91 ng/dL (0.71-1.85)
[2021-07-10 14:01] VITALS: BP 113/73; PULSE 99
[2021-07-10] MEDS: Propranolol HCL 10 MG TABLET PO ×2 (14:01→20:28)
[2021-07-10] MEDS: Acetaminophen 325 MG TABLET 650 MG PO (16:25)
[2021-07-10 18:00] VITALS: BP 98/59; PULSE 88; RESP 18; TEMP 36.7; O2SAT 96
[2021-07-10 20:28] VITALS: BP 98/59; PULSE 88
[2021-07-10] MEDS: traZODone HCL 50 MG TABLET 150 MG PO (20:28)
[2021-07-11 00:55] VITALS: BP 118/74; PULSE 92; RESP 18; O2SAT 99
[2021-07-11] MEDS: LORazepam 1 MG TABLET PO (01:24)
--- NOTE | 2021-07-11 01:49 | PC.NURSE ---
Patient is noted to be awake and pacing in the hallway at approximately 12:45am. Patient's clothing is noted to be wet. Upon inquiring about clothing being wet, patient reports she again awoke in a sweat with anxiety and insomnia. Patient's vitals are assessed: 97.7, 118/74, O2-99%, HR 92%, RR 18. Covering Provider, ANDRAW contacted to report symptoms and request PRN medication. 1mg Ativan P.O. ordered and administered with Positive effect.
[2021-07-11] MEDS: Levothyroxine Sodium 75 MCG TABLET PO (05:19)
--- NOTE | 2021-07-11 05:23 | PC.NURSE ---
Patient's TSH noted to be 5.14 with a daily dose of Synthroid. Patient has been awakening nightly in a sweat with insomnia and anxiety.
[2021-07-11 06:00] VITALS: BP 111/78; PULSE 100; RESP 18; TEMP 36.6; O2SAT 100
[2021-07-11] MEDS: Paliperidone ER 3 MG TAB.ER.24 PO (07:54)
[2021-07-11] MEDS: Docusate Sodium 100 MG CAPSULE PO ×2 (07:55→19:36)
[2021-07-11] MEDS: methADONE HCl 20 MG/2 ML ORAL.CONC 60 MG PO (07:55)
[2021-07-11] MEDS: Benztropine Mesylate 1 MG TABLET PO ×2 (07:55→14:25)
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
[2021-07-11] MEDS: Acetaminophen 325 MG TABLET 650 MG PO (10:56)
--- NOTE | 2021-07-11 13:00 | MHC.RECOVRN ---
Check in with pt regarding methadone. Pt pacing oneal upon approach, calm. Pt states I don't know how much he was injecting me with, it must have been a lot. Pt expresses desire to increase methadone dose. When asked about withdrawal symptoms, pt unable to state, however, reports migraine from new medication. Pt also reports restless legs due to a new medication. Pt appears to be comfortable at this time. Discussed with Mackenzie Randall APRN. Will continue to follow.
[2021-07-11] MEDS: Ondansetron ODT 4 MG TAB.RAPDIS TRANSLINGU (17:13)
[2021-07-11] MEDS: chlorproMAZINE HCl 25 MG TABLET 12.5 MG PO (17:18)
[2021-07-11] MEDS: chlorproMAZINE HCl 25 MG TABLET 50 MG PO (19:36)
[2021-07-11] MEDS: Benztropine Mesylate 0.5 MG TABLET PO (19:36)
[2021-07-11] MEDS: traZODone HCL 50 MG TABLET 150 MG PO (19:36)
[2021-07-12] MEDS: chlorproMAZINE HCl 25 MG TABLET 12.5 MG PO ×2 (03:30→08:15)
[2021-07-12 06:00] VITALS: BP 108/76; PULSE 95; RESP 18; TEMP 36.6; O2SAT 99
[2021-07-12] MEDS: Levothyroxine Sodium 75 MCG TABLET PO (06:20)
[2021-07-12] MEDS: Paliperidone ER 3 MG TAB.ER.24 PO (08:11)
[2021-07-12] MEDS: Benztropine Mesylate 0.5 MG TABLET PO ×2 (08:11→16:01)
[2021-07-12] MEDS: methADONE HCl 20 MG/2 ML ORAL.CONC 60 MG PO (08:11)
[2021-07-12] MEDS: Docusate Sodium 100 MG CAPSULE PO ×2 (08:11→21:12)
[2021-07-12] MEDS: polyethylene glycoL 3350 17 GM POWD.PACK PO (08:11)
[2021-07-12] MEDS: Acetaminophen 325 MG TABLET 650 MG PO ×2 (08:15→16:04)
[2021-07-12] MEDS: Magnesium Hydrox/Alum Hydrox 30 ML ORAL.SUSP PO (11:05)
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
[2021-07-12] MEDS: chlorproMAZINE HCl 25 MG TABLET 50 MG PO (16:41)
[2021-07-12] MEDS: Ondansetron ODT 4 MG TAB.RAPDIS TRANSLINGU (16:47)
[2021-07-12 17:26] VITALS: BP 108/68; PULSE 85; TEMP 35.9; O2SAT 96
[2021-07-12 19:08] LABS: HCG Quantitative 3 mIU/mL
[2021-07-12 19:58] LABS: COVID-19 Test Negative (Negative); IDNOW Serial# 55D5AD1C
[2021-07-12] MEDS: traZODone HCL 50 MG TABLET 150 MG PO (20:42)
[2021-07-12] MEDS: rOPINIRole HCL 0.25 MG TABLET PO (21:12)
[2021-07-13 05:05] VITALS: BP 113/67; PULSE 99; RESP 17; TEMP 36.5; O2SAT 100
[2021-07-13] MEDS: Levothyroxine Sodium 75 MCG TABLET PO (05:22)
[2021-07-13] MEDS: Acetaminophen 325 MG TABLET 650 MG PO (05:22)
[2021-07-13] MEDS: methADONE HCl 20 MG/2 ML ORAL.CONC 60 MG PO (08:11)
[2021-07-13] MEDS: Paliperidone ER 3 MG TAB.ER.24 PO (08:11)
[2021-07-13] MEDS: Docusate Sodium 100 MG CAPSULE PO ×2 (08:11→20:52)
[2021-07-13] MEDS: polyethylene glycoL 3350 17 GM POWD.PACK PO ×2 (08:12→18:12)
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
[2021-07-13] MEDS: chlorproMAZINE HCl 25 MG TABLET 50 MG PO (12:51)
[2021-07-13] MEDS: traZODone HCL 50 MG TABLET 150 MG PO (20:52)
[2021-07-13 21:10] VITALS: BP 120/81; PULSE 98; TEMP 36.1
[2021-07-14] MEDS: traZODone HCL 100 MG TABLET PO (02:17)
[2021-07-14 06:00] VITALS: BP 101/62; PULSE 90; RESP 16; TEMP 36.4; O2SAT 97
[2021-07-14] MEDS: Levothyroxine Sodium 75 MCG TABLET PO (06:43)
[2021-07-14] MEDS: methADONE HCl 20 MG/2 ML ORAL.CONC 60 MG PO (08:22)
[2021-07-14 08:40] LABS: COVID-19 Test Negative (Negative); IDNOW Serial# 55D5AD1C
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
[2021-07-14] MEDS: FLUoxetine HCl 10 MG CAPSULE PO (11:49)
[2021-07-14] MEDS: methADONE HCl 20 MG/2 ML ORAL.CONC 10 MG PO (11:49)
[2021-07-14] MEDS: polyethylene glycoL 3350 17 GM POWD.PACK PO (16:25)
[2021-07-14] MEDS: chlorproMAZINE HCl 25 MG TABLET 50 MG PO (16:25)
[2021-07-14] MEDS: traZODone HCL 50 MG TABLET 150 MG PO (21:05)
[2021-07-14] MEDS: rOPINIRole HCL 0.25 MG TABLET PO (21:05)
[2021-07-14] MEDS: Docusate Sodium 100 MG CAPSULE PO (21:05)
[2021-07-15] MEDS: chlorproMAZINE HCl 25 MG TABLET 50 MG PO (04:53)
[2021-07-15] MEDS: Levothyroxine Sodium 75 MCG TABLET PO (04:54)
[2021-07-15 06:00] VITALS: BP 109/71; PULSE 97; RESP 18; TEMP 37.1; O2SAT 98
[2021-07-15] MEDS: Docusate Sodium 100 MG CAPSULE PO ×2 (08:14→20:20)
[2021-07-15] MEDS: Paliperidone ER 3 MG TAB.ER.24 PO (08:14)
[2021-07-15] MEDS: methADONE HCl 20 MG/2 ML ORAL.CONC 70 MG PO (08:15)
[2021-07-15] MEDS: FLUoxetine HCl 10 MG CAPSULE PO (08:15)
[2021-07-15] MEDS: polyethylene glycoL 3350 17 GM POWD.PACK PO (08:15)
--- NOTE | 2021-07-15 09:50 | P.PNADD_ITS ---
Subjective Subjective Date of Service: 07/15/21 Reason For Visit: PTSD, SI, Polysubstance use Medical Problems Affecting Mental Status: No Interim History: Patient had methadone dose increased yesterday from 60 mg to 70 mg. Last EKG on 06/27/2021 showed QTC of 440. Medication Compliance: Yes Side effects from medications: No Review of Systems Acute medical concerns: No Medical Review of Systems: unchanged Mental Status Exam Mental Status Exam Narrative: Well-developed, well-nourished female, in NAD. No evidence of any type of opioid withdrawals, cravings. Patient did not appear to be overly sedated on current methadone dose. Judgement: Fair Diagnostics Vital Signs (24Hr): Vital Signs - 24 hr 07/15/21 06:00 Temperature 98.7 F Pulse Rate 97 Respiratory Rate 18 Blood Pressure 109/71 Pulse Oximetry 98 BMI result Body Mass Index 23.7 Labs Results: 06/24/21 11:11 07/03/21 14:54 Labs: Laboratory Results - last 48 hr 07/14/21 08:01 COVID-19 ([facility]) Negative COVID-19 Clin Com See Note Imaging Radiology Impressions: ITS Impressions Chest X-Ray 06/24/21 09:36 IMPRESSION: Unremarkable chest examination. Hand/Wrist X-Ray 06/27/21 19:55 IMPRESSION: Essentially negative exam aside from some minimal degenerative changes proximal interphalangeal joints as described above. An explanation for the patient's inability to move their fingers has not been found. KUB X-Ray 07/03/21 16:50 IMPRESSION: Increased amount of stool in the colon suggesting constipation. Please correlate with clinical presentation. Medications Medications Current Medications Acetaminophen (Acetaminophen 325 Mg Tablet) 650 mg PO Q6H PRN PRN Reason: Headache/Pain Mild Scale (1-3) Last Admin: 07/13/21 05:22 Dose: 650 mg Documented by: Al Hydroxide/Mg Hydroxide (Magnesium Hydrox/Alum Hydrox 30 Ml Oral.Susp) 30 ml PO Q6H PRN PRN Reason: Heartburn/Nausea Last Admin: 07/12/21 11:05 Dose: 30 ml Documented by: Chlorpromazine HCl (Chlorpromazine Hcl 25 Mg Tablet) 50 mg PO Q4H PRN PRN Reason: Anxiety Last Admin: 07/15/21 04:53 Dose: 50 mg Documented by: Docusate Sodium (Docusate Sodium 100 Mg Capsule) 100 mg PO BID [facility] Last Admin: 07/15/21 08:14 Dose: 100 mg Documented by: Fluoxetine HCl (Fluoxetine Hcl 10 Mg Capsule) 10 mg PO DAILY [facility] Last Admin: 07/15/21 08:15 Dose: 10 mg Documented by: Levothyroxine Sodium (Levothyroxine Sodium 75 Mcg Tablet) 75 mcg PO DAILY@0600 [facility] Last Admin: 07/15/21 04:54 Dose: 75 mcg Documented by: Magnesium Hydroxide (Milk Of Magnesia 30 Ml Oral.Susp) 30 ml PO DAILY PRN PRN Reason: Constipation Methadone HCl (Methadone Hcl 20 Mg/2 Ml Oral.Conc) 70 mg PO DAILY [facility] Last Admin: 07/15/21 08:15 Dose: 70 mg Documented by: Ondansetron HCl (Ondansetron Odt 4 Mg Tab.Rapdis) 4 mg TRANSLINGU ONCE PRN PRN Reason: Nausea Last Admin: 07/12/21 16:47 Dose: 4 mg Documented by: Paliperidone (Paliperidone Er 3 Mg Tab.Er.24) 3 mg PO DAILY [facility] Last Admin: 07/15/21 08:14 Dose: 3 mg Documented by: Polyethylene Glycol (Polyethylene Glycol 3350 17 Gm Powd.Pack) 17 gm PO BIDPC [facility] Last Admin: 07/15/21 08:15 Dose: 17 gm Documented by: Psyllium Hydrophilic Mucilloid (Psyllium Seed 3.4 Gm Powd.Pack) 3.4 gm PO BEDTIME [facility] Last Admin: 07/14/21 21:05 Dose: 3.4 gm Documented by: Ropinirole HCl (Ropinirole Hcl 0.25 Mg Tablet) 0.25 mg PO BEDTIME [facility] Last Admin: 07/14/21 21:05 Dose: 0.25 mg Documented by: Trazodone HCl (Trazodone Hcl 50 Mg Tablet) 150 mg PO BEDTIME [facility] Last Admin: 07/14/21 21:05 Dose: 150 mg Documented by: Trazodone HCl (Trazodone Hcl 100 Mg Tablet) 100 mg PO BEDTIME PRN PRN Reason: continued insomnia or early waking Last Admin: 07/14/21 02:17 Dose: 100 mg Documented by: Allergies Allergies Allergy/AdvReac Type Severity Reaction Status Date / Time No Known Allergies Allergy Verified 10/19/20 02:43 [No Known Allergies*] Assessment & Plan Assessment & Plan (1) Opioid use disorder, severe, in controlled environment, dependence: Status: Acute Code(s): F11.20 - Opioid dependence, uncomplicated Assessment and Plan: Met with patient this morning. She reports that she had been buying methadone for the past 1 and [address] months off of the streets. She reports she is waiting for her certificate so that she can obtain ID, and then will be able to go to methadone clinic. Reports that she had previously been experiencing withdrawal symptoms, waking multiple times during the night drenched in sweat while receiving dose of methadone at 60 mg. Reports the 70 mg is helping manage withdrawal symptoms. Denies any type of over-sedation. Assessment and Plan: 1. EKG ordered, awaiting results. 2. Continue at current dose of methadone at 70mg. 3. Patient will require discharge planning regarding methadone and clinic referral, as she does not have a government issued ID, which will be required in order to refer her to a clinic upon discharge. I have shared my thoughts and recommendations with covering provider, Nicole Lugo. Thank you. I spent minutes with the patient and/or on the patient floor today, greater than?50% of which was spent counseling/coordinating care.
[2021-07-15] MEDS: OXcarbazepine 300 MG TABLET PO ×2 (13:19→20:20)
[2021-07-15 18:00] VITALS: BP 109/62; PULSE 91; RESP 14; TEMP 36.3; O2SAT 95
--- NOTE | 2021-07-15 18:05 | P.PNPSI_ITS ---
Subjective Subjective Date of Service: 07/15/21 Reason For Visit: PTSD, SI, Polysubstance use Interim History: Pt asking for benzo for anxiety which she reports is chronic. Per addiction team she awaits a certificate from [place] and will be unable to go to the Methadone clinic without this as proof of ID. Medication Compliance: Yes Side effects from medications: No Attending Groups: Yes Review of Systems Acute medical concerns: No Medical Review of Systems: unchanged Review of Systems Psychiatric: Reports anxiety Mental Status Exam Mental Status Exam Patient Appearance: Appropriate Patient Orientation: Person, Place, Time and Situation Level of Consciousness: Alert Patient Behavior: Cooperative and Good Eye Contact Mood Description: Anxious Affect Description: Anxious Patient Cognition Impaired: No Ability to Follow Directions: Good Speech Pattern: Spontaneous Speech Memory Description: Episodic Impaired Hallucinations: None (denies) Delusions: Not Present (denies) Thought Process: Goal Oriented Thought Content: positive for Goal Oriented Depressive Symptoms: Increased Anxiety Judgement: Fair Diagnostics Vital Signs (24Hr): Vital Signs - 24 hr 07/15/21 06:00 Temperature 98.7 F Pulse Rate 97 Respiratory Rate 18 Blood Pressure 109/71 Pulse Oximetry 98 BMI result Body Mass Index 23.7 Labs Results: 06/24/21 11:11 07/03/21 14:54 Labs: Laboratory Results - last 48 hr 07/14/21 08:01 COVID-19 ([facility]) Negative COVID-19 Clin Com See Note Imaging Radiology Impressions: ITS Impressions Chest X-Ray 06/24/21 09:36 IMPRESSION: Unremarkable chest examination. Hand/Wrist X-Ray 06/27/21 19:55 IMPRESSION: Essentially negative exam aside from some minimal degenerative changes proximal interphalangeal joints as described above. An explanation for the patient's inability to move their fingers has not been found. KUB X-Ray 07/03/21 16:50 IMPRESSION: Increased amount of stool in the colon suggesting constipation. Please correlate with clinical presentation. Medications Medications Current Medications Acetaminophen (Acetaminophen 325 Mg Tablet) 650 mg PO Q6H PRN PRN Reason: Headache/Pain Mild Scale (1-3) Last Admin: 07/13/21 05:22 Dose: 650 mg Documented by: Al Hydroxide/Mg Hydroxide (Magnesium Hydrox/Alum Hydrox 30 Ml Oral.Susp) 30 ml PO Q6H PRN PRN Reason: Heartburn/Nausea Last Admin: 07/12/21 11:05 Dose: 30 ml Documented by: Chlorpromazine HCl (Chlorpromazine Hcl 25 Mg Tablet) 50 mg PO Q4H PRN PRN Reason: Anxiety Last Admin: 07/15/21 04:53 Dose: 50 mg Documented by: Docusate Sodium (Docusate Sodium 100 Mg Capsule) 100 mg PO BID [facility] Last Admin: 07/15/21 08:14 Dose: 100 mg Documented by: Fluoxetine HCl (Fluoxetine Hcl 10 Mg Capsule) 10 mg PO DAILY [facility] Last Admin: 07/15/21 08:15 Dose: 10 mg Documented by: Levothyroxine Sodium (Levothyroxine Sodium 75 Mcg Tablet) 75 mcg PO DAILY@0600 [facility] Last Admin: 07/15/21 04:54 Dose: 75 mcg Documented by: Magnesium Hydroxide (Milk Of Magnesia 30 Ml Oral.Susp) 30 ml PO DAILY PRN PRN Reason: Constipation Methadone HCl (Methadone Hcl 20 Mg/2 Ml Oral.Conc) 70 mg PO DAILY [facility] Last Admin: 07/15/21 08:15 Dose: 70 mg Documented by: Ondansetron HCl (Ondansetron Odt 4 Mg Tab.Rapdis) 4 mg TRANSLINGU ONCE PRN PRN Reason: Nausea Last Admin: 07/12/21 16:47 Dose: 4 mg Documented by: Oxcarbazepine (Oxcarbazepine 300 Mg Tablet) 300 mg PO BID [facility] Last Admin: 07/15/21 13:19 Dose: 300 mg Documented by: Paliperidone (Paliperidone Er 3 Mg Tab.Er.24) 3 mg PO DAILY [facility] Last Admin: 07/15/21 08:14 Dose: 3 mg Documented by: Polyethylene Glycol (Polyethylene Glycol 3350 17 Gm Powd.Pack) 17 gm PO BIDPC [facility] Last Admin: 07/15/21 08:15 Dose: 17 gm Documented by: Psyllium Hydrophilic Mucilloid (Psyllium Seed 3.4 Gm Powd.Pack) 3.4 gm PO BEDTIME [facility] Last Admin: 07/14/21 21:05 Dose: 3.4 gm Documented by: Ropinirole HCl (Ropinirole Hcl 0.25 Mg Tablet) 0.25 mg PO BEDTIME [facility] Last Admin: 07/14/21 21:05 Dose: 0.25 mg Documented by: Trazodone HCl (Trazodone Hcl 50 Mg Tablet) 150 mg PO BEDTIME [facility] Last Admin: 07/14/21 21:05 Dose: 150 mg Documented by: Trazodone HCl (Trazodone Hcl 100 Mg Tablet) 100 mg PO BEDTIME PRN PRN Reason: continued insomnia or early waking Last Admin: 07/14/21 02:17 Dose: 100 mg Documented by: Allergies Allergies Allergy/AdvReac Type Severity Reaction Status Date / Time No Known Allergies Allergy Verified 10/19/20 02:43 [No Known Allergies*] Assessment & Plan Assessment & Plan (1) Opioid use disorder, severe, in controlled environment, dependence: Status: Acute Code(s): F11.20 - Opioid dependence, uncomplicated Assessment and Plan: Met with patient this morning. She reports that she had been buying methadone for the past 1 and half months off of the streets. She reports she is waiting for her certificate so that she can obtain ID, and then will be able to go to methadone clinic. Reports that she had previously been experiencing withdrawal symptoms, waking multiple times during the night drenched in sweat while receiving dose of methadone at 60 mg. Reports the 70 mg is helping manage withdrawal symptoms. Denies any type of over-sedation. Assessment and Plan: 1. EKG ordered, awaiting results. 2. Continue at current dose of methadone at 70mg. 3. Patient will require discharge planning regarding methadone and clinic referral, as she does not have a government issued ID, which will be required in order to refer her to a clinic upon discharge. I have shared my thoughts and recommendations with covering provider, Nicole Lugo. Thank you. 07/15/21: Coverage Pt reports anxiety, requests a benzo. Trial of Trileptal 300 mg bid-pt after first dose did report relief ~6 hours into the dose. I spent minutes with the patient and/or on the patient floor today, greater than?50% of which was spent counseling/coordinating care. Patient educated on: medication risk/benefits Informed Consent: further education needed Reason for contiued inpatient stay Substantial Risk for: rapid decompensation
[2021-07-15] MEDS: rOPINIRole HCL 0.25 MG TABLET PO (20:20)
[2021-07-15] MEDS: traZODone HCL 50 MG TABLET 150 MG PO (20:20)
[2021-07-16] MEDS: Levothyroxine Sodium 75 MCG TABLET PO (05:07)
[2021-07-16] MEDS: chlorproMAZINE HCl 25 MG TABLET 50 MG PO (05:51)
[2021-07-16 06:00] VITALS: BP 104/70; PULSE 83; RESP 18; TEMP 36.3; O2SAT 96
[2021-07-16] MEDS: Paliperidone ER 3 MG TAB.ER.24 PO (08:06)
[2021-07-16] MEDS: FLUoxetine HCl 10 MG CAPSULE PO (08:06)
[2021-07-16] MEDS: Docusate Sodium 100 MG CAPSULE PO ×2 (08:06→20:10)
[2021-07-16] MEDS: methADONE HCl 20 MG/2 ML ORAL.CONC 70 MG PO (08:06)
[2021-07-16] MEDS: polyethylene glycoL 3350 17 GM POWD.PACK PO ×2 (08:06→17:14)
[2021-07-16] MEDS: OXcarbazepine 300 MG TABLET PO ×2 (08:06→20:10)
[2021-07-16] MEDS: bisacodyL 5 MG TABLET.DR 10 MG PO (12:14)
--- NOTE | 2021-07-16 15:42 | HO.PSYCHPN ---
Subjective Subjective Date of Service: 07/16/21 Reason For Visit: PTSD, SI, Polysubstance use Interim History: Reports Trileptal trial is helpful for anxiety mgt. Reports constipation-citing no BM in ~1 month. Declined magnesium citrate. Given dulcolax x 1. Medication Compliance: Yes Side effects from medications: No Attending Groups: Yes Review of Systems Acute medical concerns: No Medical Review of Systems: unchanged Review of Systems Psychiatric: Reports anxiety Mental Status Exam Mental Status Exam Patient Appearance: Appropriate Patient Orientation: Person, Place, Time and Situation Level of Consciousness: Alert Patient Behavior: Cooperative and Good Eye Contact Mood Description: Anxious Affect Description: Anxious Patient Cognition Impaired: No Ability to Follow Directions: Good Speech Pattern: Spontaneous Speech Memory Description: Episodic Impaired Hallucinations: None (denies) Delusions: Not Present (denies) Thought Process: Goal Oriented Thought Content: positive for Goal Oriented Depressive Symptoms: Increased Anxiety Judgement: Fair Diagnostics Vital Signs (24Hr): Vital Signs - 24 hr 07/15/21 18:00 07/16/21 06:00 Temperature 97.3 F 97.3 F Pulse Rate 91 83 Respiratory Rate 14 18 Blood Pressure 109/62 104/70 Pulse Oximetry 95 96 BMI result Body Mass Index 23.7 Labs Results: 06/24/21 11:11 07/03/21 14:54 Imaging Radiology Impressions: ITS Impressions Chest X-Ray 06/24/21 09:36 IMPRESSION: Unremarkable chest examination. Hand/Wrist X-Ray 06/27/21 19:55 IMPRESSION: Essentially negative exam aside from some minimal degenerative changes proximal interphalangeal joints as described above. An explanation for the patient's inability to move their fingers has not been found. KUB X-Ray 07/03/21 16:50 IMPRESSION: Increased amount of stool in the colon suggesting constipation. Please correlate with clinical presentation. Medications Medications Current Medications Acetaminophen (Acetaminophen 325 Mg Tablet) 650 mg PO Q6H PRN PRN Reason: Headache/Pain Mild Scale (1-3) Last Admin: 07/13/21 05:22 Dose: 650 mg Documented by: Al Hydroxide/Mg Hydroxide (Magnesium Hydrox/Alum Hydrox 30 Ml Oral.Susp) 30 ml PO Q6H PRN PRN Reason: Heartburn/Nausea Last Admin: 07/12/21 11:05 Dose: 30 ml Documented by: Chlorpromazine HCl (Chlorpromazine Hcl 25 Mg Tablet) 50 mg PO Q4H PRN PRN Reason: Anxiety Last Admin: 07/16/21 05:51 Dose: 50 mg Documented by: Docusate Sodium (Docusate Sodium 100 Mg Capsule) 100 mg PO BID [facility] Last Admin: 07/16/21 08:06 Dose: 100 mg Documented by: Fluoxetine HCl (Fluoxetine Hcl 10 Mg Capsule) 10 mg PO DAILY [facility] Last Admin: 07/16/21 08:06 Dose: 10 mg Documented by: Levothyroxine Sodium (Levothyroxine Sodium 75 Mcg Tablet) 75 mcg PO DAILY@0600 [facility] Last Admin: 07/16/21 05:07 Dose: 75 mcg Documented by: Magnesium Hydroxide (Milk Of Magnesia 30 Ml Oral.Susp) 30 ml PO DAILY PRN PRN Reason: Constipation Methadone HCl (Methadone Hcl 20 Mg/2 Ml Oral.Conc) 70 mg PO DAILY [facility] Last Admin: 07/16/21 08:06 Dose: 70 mg Documented by: Ondansetron HCl (Ondansetron Odt 4 Mg Tab.Rapdis) 4 mg TRANSLINGU ONCE PRN PRN Reason: Nausea Last Admin: 07/12/21 16:47 Dose: 4 mg Documented by: Oxcarbazepine (Oxcarbazepine 300 Mg Tablet) 300 mg PO BID [facility] Last Admin: 07/16/21 08:06 Dose: 300 mg Documented by: Paliperidone (Paliperidone Er 3 Mg Tab.Er.24) 3 mg PO DAILY [facility] Last Admin: 07/16/21 08:06 Dose: 3 mg Documented by: Polyethylene Glycol (Polyethylene Glycol 3350 17 Gm Powd.Pack) 17 gm PO BIDPC [facility] Last Admin: 07/16/21 08:06 Dose: 17 gm Documented by: Psyllium Hydrophilic Mucilloid (Psyllium Seed 3.4 Gm Powd.Pack) 3.4 gm PO BEDTIME [facility] Last Admin: 07/15/21 20:20 Dose: 3.4 gm Documented by: Ropinirole HCl (Ropinirole Hcl 0.25 Mg Tablet) 0.25 mg PO BEDTIME [facility] Last Admin: 07/15/21 20:20 Dose: 0.25 mg Documented by: Trazodone HCl (Trazodone Hcl 50 Mg Tablet) 150 mg PO BEDTIME [facility] Last Admin: 07/15/21 20:20 Dose: 150 mg Documented by: Trazodone HCl (Trazodone Hcl 100 Mg Tablet) 100 mg PO BEDTIME PRN PRN Reason: continued insomnia or early waking Last Admin: 07/14/21 02:17 Dose: 100 mg Documented by: Allergies Allergies Allergy/AdvReac Type Severity Reaction Status Date / Time No Known Allergies Allergy Verified 10/19/20 02:43 [No Known Allergies*] Assessment & Plan Assessment & Plan (1) Opioid use disorder, severe, in controlled environment, dependence: Status: Acute Code(s): F11.20 - Opioid dependence, uncomplicated Assessment and Plan: Met with patient this morning. She reports that she had been buying methadone for the past 1 and half months off of the streets. She reports she is waiting for her certificate so that she can obtain ID, and then will be able to go to methadone clinic. Reports that she had previously been experiencing withdrawal symptoms, waking multiple times during the night drenched in sweat while receiving dose of methadone at 60 mg. Reports the 70 mg is helping manage withdrawal symptoms. Denies any type of over-sedation. Assessment and Plan: 1. EKG ordered, awaiting results. 2. Continue at current dose of methadone at 70mg. 3. Patient will require discharge planning regarding methadone and clinic referral, as she does not have a government issued ID, which will be required in order to refer her to a clinic upon discharge. I have shared my thoughts and recommendations with covering provider, Nicole Lugo. Thank you. 07/15/21: Coverage Pt reports anxiety, requests a benzo. Trial of Trileptal 300 mg bid-pt after first dose did report relief ~6 hours into the dose. 07/16/21 Reports constipation. Dulcolax 1 tab given. Continue Trileptal-pt reports it is useful. I spent minutes with the patient and/or on the patient floor today, greater than?50% of which was spent counseling/coordinating care. Patient educated on: medication risk/benefits, therapeutic strategies and medical condition Informed Consent: understands and further education needed Reason for contiued inpatient stay Substantial Risk for: inability to function and rapid decompensation
[2021-07-16] MEDS: traZODone HCL 50 MG TABLET 150 MG PO (20:10)
[2021-07-16] MEDS: rOPINIRole HCL 0.25 MG TABLET PO (20:11)
[2021-07-16 20:14] VITALS: BP 127/77; PULSE 90; RESP 17; TEMP 36.6; O2SAT 100
--- NOTE | 2021-07-17 | ECG_ITS ---
Test Reason : qtc Blood Pressure : / mmHG Vent. Rate : 083 BPM Atrial Rate : 083 BPM P-R Int : 166 ms QRS Dur : 086 ms QT Int : 394 ms P-R-T Axes : 063 082 032 degrees QTc Int : 462 ms Normal sinus rhythm Nonspecific T wave abnormality Prolonged QT Abnormal ECG When compared with ECG of 27-JUN-2021 14:01, Vent. rate has increased BY 32 BPM Nonspecific T wave abnormality, improved in Lateral leads Referred By: Jarred Haynes Electronically Signed By:CRUZ EMANUEL
[2021-07-17 05:36] VITALS: BP 101/59; PULSE 98; RESP 16; TEMP 36.8; O2SAT 97
[2021-07-17] MEDS: Levothyroxine Sodium 75 MCG TABLET PO (05:48)
[2021-07-17] MEDS: methADONE HCl 20 MG/2 ML ORAL.CONC 70 MG PO (08:00)
[2021-07-17] MEDS: polyethylene glycoL 3350 17 GM POWD.PACK PO (08:00)
[2021-07-17] MEDS: FLUoxetine HCl 10 MG CAPSULE PO (08:00)
[2021-07-17] MEDS: Docusate Sodium 100 MG CAPSULE PO ×2 (08:00→19:42)
[2021-07-17] MEDS: OXcarbazepine 300 MG TABLET PO ×2 (08:00→19:42)
[2021-07-17] MEDS: Paliperidone ER 3 MG TAB.ER.24 PO (08:00)
[2021-07-17] MEDS: Acetaminophen 325 MG TABLET 650 MG PO (09:38)
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
[2021-07-17 10:54] LABS: COVID-19 Test Negative (Negative); IDNOW Serial# 9DD0AD1C
[2021-07-17 13:57] LABS: MANUAL DIFF FLAG NO
[2021-07-17 14:00] LABS: Basophils Percent Auto 0.4 % (0-2); Eosinophils Absolute Auto 0.1 X10*3/uL (0.0-0.4); Eosinophils Percent Auto 1.8 % (0-4); Hematocrit 37.2 % (37.0-47.0); Hemoglobin 12.4 g/dl (12.0-16.0); Imm Gran Abs Auto 0.02 X10*3/uL (0.00-0.03); Imm Gran Pct Auto 0.3 % (0.0-0.4); Lymphocytes Absolute Auto 3.2 X10*3/uL (1.2-4.9); Lymphocytes Percent Auto 41.8 % (20-40); Mean Corpuscular HGB Conc 33.3 g/dl (31.0-35.0); Mean Corpuscular Hemoglobin 31.7 pg (27.0-33.0); Mean Corpuscular Volume 95.1 fL (80.0-98.0); Mean Platelet Volume 9.3 fL (9.4-12.3); Monocytes Absolute Auto 0.4 X10*3/uL (0.1-1.2); Monocytes Percent Auto 5.6 % (2-11); Neutrophils Absolute Auto 3.8 x10*3/uL (2.0-8.3); Neutrophils Percent Auto 50.1 % (45-73); Platelet Count 239 X10*3/uL (160-400); Red Blood Count 3.91 X10*6/uL (4.20-5.50); Red Cell Distribution Width 12.3 % (11.0-16.0); White Blood Count 7.7 X10*3/uL (4.8-10.8)
[2021-07-17 17:00] VITALS: BP 103/65; PULSE 81; TEMP 36.5; O2SAT 98
[2021-07-17] MEDS: traZODone HCL 50 MG TABLET 150 MG PO (19:42)
[2021-07-17] MEDS: rOPINIRole HCL 0.25 MG TABLET PO (19:42)
[2021-07-18 06:00] VITALS: BP 111/70; PULSE 87; RESP 18; TEMP 37.1; O2SAT 99
[2021-07-18] MEDS: Levothyroxine Sodium 75 MCG TABLET PO (06:08)
[2021-07-18] MEDS: OXcarbazepine 300 MG TABLET PO ×2 (08:08→20:02)
[2021-07-18] MEDS: FLUoxetine HCl 10 MG CAPSULE PO (08:08)
[2021-07-18] MEDS: Paliperidone ER 3 MG TAB.ER.24 PO (08:08)
[2021-07-18] MEDS: Docusate Sodium 100 MG CAPSULE PO ×2 (08:08→20:01)
[2021-07-18] MEDS: polyethylene glycoL 3350 17 GM POWD.PACK PO (08:08)
[2021-07-18] MEDS: methADONE HCl 20 MG/2 ML ORAL.CONC 70 MG PO (08:09)
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
[2021-07-18] MEDS: Acetaminophen 325 MG TABLET 650 MG PO (14:49)
[2021-07-18 19:35] VITALS: BP 114/70; PULSE 91; TEMP 36.5
[2021-07-18] MEDS: rOPINIRole HCL 0.25 MG TABLET PO (20:01)
[2021-07-18] MEDS: traZODone HCL 50 MG TABLET 150 MG PO (20:02)
[2021-07-19] MEDS: Levothyroxine Sodium 75 MCG TABLET PO (04:58)
[2021-07-19 06:00] VITALS: BP 119/77; PULSE 89; RESP 18; TEMP 36.7; O2SAT 99
[2021-07-19] MEDS: Acetaminophen 325 MG TABLET 650 MG PO (06:46)
[2021-07-19] MEDS: methADONE HCl 20 MG/2 ML ORAL.CONC 70 MG PO (08:11)
[2021-07-19] MEDS: OXcarbazepine 300 MG TABLET PO ×2 (08:14→21:03)
[2021-07-19] MEDS: Docusate Sodium 100 MG CAPSULE PO ×2 (08:14→21:03)
[2021-07-19] MEDS: FLUoxetine HCl 10 MG CAPSULE PO (08:14)
[2021-07-19] MEDS: polyethylene glycoL 3350 17 GM POWD.PACK PO (08:36)
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
[2021-07-19 12:36] VITALS: BP 138/62; PULSE 85
[2021-07-19] MEDS: Topiramate 25 MG TABLET PO (12:36)
[2021-07-19] MEDS: cloNIDine HCL 0.1 MG TABLET 0.05 MG PO ×3 (12:36→21:08)
[2021-07-19 15:35] VITALS: BP 99/63; PULSE 87
[2021-07-19 18:00] VITALS: BP 91/50; PULSE 88; TEMP 36.8; O2SAT 98
[2021-07-19] MEDS: traZODone HCL 50 MG TABLET 150 MG PO (21:03)
[2021-07-19 21:08] VITALS: BP 110/71; PULSE 88
[2021-07-20] MEDS: traZODone HCL 100 MG TABLET PO (01:26)
[2021-07-20 05:20] VITALS: BP 116/70; PULSE 90
[2021-07-20] MEDS: cloNIDine HCL 0.1 MG TABLET 0.05 MG PO ×3 (05:20→20:24)
[2021-07-20] MEDS: Levothyroxine Sodium 75 MCG TABLET PO (05:21)
[2021-07-20 05:24] VITALS: BP 116/70; PULSE 90; RESP 18; TEMP 36.8; O2SAT 100
[2021-07-20 07:00] VITALS: BMI 24.0
[2021-07-20] MEDS: OXcarbazepine 300 MG TABLET PO ×2 (08:00→20:25)
[2021-07-20] MEDS: FLUoxetine HCl 10 MG CAPSULE PO (08:00)
[2021-07-20] MEDS: methADONE HCl 20 MG/2 ML ORAL.CONC 70 MG PO (08:00)
[2021-07-20] MEDS: Docusate Sodium 100 MG CAPSULE PO ×2 (08:00→20:23)
[2021-07-20] MEDS: polyethylene glycoL 3350 17 GM POWD.PACK PO ×2 (08:00→16:36)
[2021-07-20] MEDS: Topiramate 25 MG TABLET PO (08:00)
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
[2021-07-20 14:30] VITALS: BP 124/78; PULSE 82
[2021-07-20 19:02] VITALS: BP 109/59; PULSE 87; RESP 18; TEMP 36.2; O2SAT 98
[2021-07-20 20:24] VITALS: BP 100/69; PULSE 81
[2021-07-20] MEDS: traZODone HCL 50 MG TABLET 150 MG PO (20:24)
[2021-07-20] MEDS: rOPINIRole HCL 0.25 MG TABLET PO (20:25)
[2021-07-21 04:24] VITALS: BP 91/61; PULSE 86
[2021-07-21] MEDS: cloNIDine HCL 0.1 MG TABLET 0.05 MG PO ×3 (04:24→20:24)
[2021-07-21 04:28] VITALS: BP 96/64; PULSE 86; RESP 14; TEMP 36.5; O2SAT 98
[2021-07-21] MEDS: Levothyroxine Sodium 75 MCG TABLET PO (06:03)
[2021-07-21] MEDS: Acetaminophen 325 MG TABLET 650 MG PO (07:22)
[2021-07-21] MEDS: methADONE HCl 20 MG/2 ML ORAL.CONC 70 MG PO (08:10)
[2021-07-21] MEDS: Docusate Sodium 100 MG CAPSULE PO ×2 (08:10→20:26)
[2021-07-21] MEDS: OXcarbazepine 300 MG TABLET PO ×2 (08:10→20:26)
[2021-07-21] MEDS: FLUoxetine HCl 10 MG CAPSULE PO (08:10)
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
[2021-07-21 14:22] VITALS: BP 102/65; PULSE 77
[2021-07-21 18:19] VITALS: BP 101/55; PULSE 78; RESP 18; TEMP 36.2; O2SAT 98
[2021-07-21 20:24] VITALS: BP 110/60; PULSE 83
[2021-07-21] MEDS: traZODone HCL 50 MG TABLET 150 MG PO (20:25)
[2021-07-22 03:57] VITALS: BP 126/62; PULSE 82
[2021-07-22] MEDS: cloNIDine HCL 0.1 MG TABLET 0.05 MG PO ×3 (03:57→23:20)
[2021-07-22] MEDS: Levothyroxine Sodium 75 MCG TABLET PO (06:38)
[2021-07-22] MEDS: Acetaminophen 325 MG TABLET 650 MG PO (06:40)
[2021-07-22] MEDS: OXcarbazepine 300 MG TABLET PO ×2 (08:07→20:34)
[2021-07-22] MEDS: polyethylene glycoL 3350 17 GM POWD.PACK PO ×2 (08:07→18:55)
[2021-07-22] MEDS: methADONE HCl 20 MG/2 ML ORAL.CONC 70 MG PO (08:07)
[2021-07-22] MEDS: FLUoxetine HCl 10 MG CAPSULE PO (08:07)
[2021-07-22] MEDS: Docusate Sodium 100 MG CAPSULE PO ×2 (08:07→20:34)
[2021-07-22 14:51] VITALS: BP 112/68; PULSE 77
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
[2021-07-22] MEDS: methADONE HCl 20 MG/2 ML ORAL.CONC 5 MG PO (15:08)
[2021-07-22 18:00] VITALS: BP 111/67; PULSE 83; RESP 18; TEMP 36.4; O2SAT 99
[2021-07-22] MEDS: rOPINIRole HCL 0.25 MG TABLET PO (20:34)
[2021-07-22] MEDS: traZODone HCL 50 MG TABLET 150 MG PO (20:34)
[2021-07-22 23:20] VITALS: BP 111/67; PULSE 83
[2021-07-23 06:00] VITALS: BP 108/68; PULSE 84; RESP 17; TEMP 36.7; O2SAT 97
[2021-07-23] MEDS: Levothyroxine Sodium 75 MCG TABLET PO (06:16)
[2021-07-23] MEDS: Ibuprofen 600 MG TABLET PO (07:47)
[2021-07-23] MEDS: methADONE HCl 20 MG/2 ML ORAL.CONC 70 MG PO (08:16)
[2021-07-23] MEDS: Docusate Sodium 100 MG CAPSULE PO ×2 (08:16→21:23)
[2021-07-23] MEDS: FLUoxetine HCl 10 MG CAPSULE PO (08:16)
[2021-07-23] MEDS: OXcarbazepine 300 MG TABLET PO ×2 (08:16→21:21)
[2021-07-23] MEDS: polyethylene glycoL 3350 17 GM POWD.PACK PO ×2 (08:16→21:20)
--- NOTE | 2021-07-23 14:06 | P.PNADD_ITS ---
Subjective Subjective Date of Service: 07/23/21 Reason For Visit: PTSD, SI, Polysubstance use Interim History: Patient requesting to be seen by this provider if she would like to increase her current methadone dose. Patient currently at 70 mg of methadone daily. Patient seen by this appeals writer earlier this morning on inpatient psychiatric unit. Patient awake, alert, well groomed, well dressed pleasant and engaged in interview. Patient reporting that she is having difficulty sleeping and feels that it is related to opioid withdrawal. Patient states that she was buying up to 120 mg of methadone daily while she was on the street. This appeals writer questioned patient's report as she had never reported this amount of methadone before and she does not appear to be experiencing any opioid withdrawal symptoms as observed by this appeals writer or other clinicians. Patient states that she was c onfused at time of admission, and also was dealing with benzodiazepine withdrawal, but feels that she is clearer now and wants to continue to increase her dose. She states that she was to increase her dose of to 80 mg and not go any further from there. Of note patient has stated this several times with stating she did not want to go any higher than 50 then any higher than 60. Patient denies any cravings, denies any withdrawal symptoms during the day. Symptoms that she is reporting appear to be chronic in nature, including restless legs which are observed by this appeals writer while we were talking. This appeals writer provided supportive listening and allowed patient to verbalize her request, then informed patient that at this time dose would not be increased any further and additional dose titration could occur on an outpatient basis with her accepting opioid treatment program. Review of Systems Medical Review of Systems: unchanged Mental Status Exam Mental Status Exam Patient Appearance: Well Grooomed and Appropriate Patient Orientation: Person, Place, Time and Situation Level of Consciousness: Awake, Appropriate and Alert Patient Behavior: Appropriate and Talkative Mood Description: Happy and Relaxed Affect Description: Happy and Relaxed Speech Pattern: Clear Thought Process: Intact Judgement: Fair Diagnostics Vital Signs (24Hr): Vital Signs - 24 hr 07/22/21 14:51 07/22/21 18:00 07/22/21 23:20 Temperature 97.5 F Pulse Rate 77 83 83 Respiratory Rate 18 Blood Pressure 112/68 111/67 111/67 Pulse Oximetry 99 07/23/21 06:00 Temperature 98.0 F Pulse Rate 84 Respiratory Rate 17 Blood Pressure 108/68 Pulse Oximetry 97 BMI result Body Mass Index 24.0 Labs Results: 07/17/21 13:53 07/03/21 14:54 Imaging Radiology Impressions: ITS Impressions Chest X-Ray 06/24/21 09:36 IMPRESSION: Unremarkable chest examination. Hand/Wrist X-Ray 06/27/21 19:55 IMPRESSION: Essentially negative exam aside from some minimal degenerative changes proximal interphalangeal joints as described above. An explanation for the patient's inability to move their fingers has not been found. KUB X-Ray 07/03/21 16:50 IMPRESSION: Increased amount of stool in the colon suggesting constipation. Please correlate with clinical presentation. Medications Medications Current Medications Acetaminophen (Acetaminophen 325 Mg Tablet) 650 mg PO Q6H PRN PRN Reason: Headache/Pain Mild Scale (1-3) Last Admin: 07/22/21 06:40 Dose: 650 mg Documented by: Al Hydroxide/Mg Hydroxide (Magnesium Hydrox/Alum Hydrox 30 Ml Oral.Susp) 30 ml PO Q6H PRN PRN Reason: Heartburn/Nausea Last Admin: 07/12/21 11:05 Dose: 30 ml Documented by: Clonidine HCl (Clonidine Hcl 0.1 Mg Tablet) 0.05 mg PO QID PRN; Protocol PRN Reason: anxiety Last Admin: 07/22/21 23:20 Dose: 0.05 mg Documented by: Docusate Sodium (Docusate Sodium 100 Mg Capsule) 100 mg PO BID [facility] Last Admin: 07/23/21 08:16 Dose: 100 mg Documented by: Fluoxetine HCl (Fluoxetine Hcl 10 Mg Capsule) 10 mg PO DAILY [facility] Last Admin: 07/23/21 08:16 Dose: 10 mg Documented by: Ibuprofen (Ibuprofen 600 Mg Tablet) 600 mg PO Q6H PRN PRN Reason: migraines Last Admin: 07/23/21 07:47 Dose: 600 mg Documented by: Levothyroxine Sodium (Levothyroxine Sodium 75 Mcg Tablet) 75 mcg PO DAILY@0600 [facility] Last Admin: 07/23/21 06:16 Dose: 75 mcg Documented by: Magnesium Hydroxide (Milk Of Magnesia 30 Ml Oral.Susp) 30 ml PO DAILY PRN PRN Reason: Constipation Methadone HCl (Methadone Hcl 20 Mg/2 Ml Oral.Conc) 70 mg PO DAILY [facility] Last Admin: 07/23/21 08:16 Dose: 70 mg Documented by: Ondansetron HCl (Ondansetron Odt 4 Mg Tab.Rapdis) 4 mg TRANSLINGU ONCE PRN PRN Reason: Nausea Last Admin: 07/12/21 16:47 Dose: 4 mg Documented by: Oxcarbazepine (Oxcarbazepine 300 Mg Tablet) 300 mg PO BID [facility] Last Admin: 07/23/21 08:16 Dose: 300 mg Documented by: Polyethylene Glycol (Polyethylene Glycol 3350 17 Gm Powd.Pack) 17 gm PO BIDPC [facility] Last Admin: 07/23/21 08:16 Dose: 17 gm Documented by: Psyllium Hydrophilic Mucilloid (Psyllium Seed 3.4 Gm Powd.Pack) 3.4 gm PO BEDTIME [facility] Last Admin: 07/22/21 20:34 Dose: 3.4 gm Documented by: Ropinirole HCl (Ropinirole Hcl 0.25 Mg Tablet) 0.25 mg PO BEDTIME [facility] Last Admin: 07/22/21 20:34 Dose: 0.25 mg Documented by: Trazodone HCl (Trazodone Hcl 50 Mg Tablet) 150 mg PO BEDTIME [facility] Last Admin: 07/22/21 20:34 Dose: 150 mg Documented by: Allergies Allergies Allergy/AdvReac Type Severity Reaction Status Date / Time No Known Allergies Allergy Verified 10/19/20 02:43 [No Known Allergies*] Assessment & Plan Assessment & Plan (1) Opioid use disorder, severe, in controlled environment, dependence: Status: Acute Code(s): F11.20 - Opioid dependence, uncomplicated Assessment and Plan: * Methadone dose to stay at 70 mg * Further titration should continue outpatient I spent ___20___ minutes with the patient and/or on the patient floor today, greater than?50% of which was spent counseling/coordinating care.
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
[2021-07-23 18:00] VITALS: BP 102/71; PULSE 73
[2021-07-23] MEDS: traZODone HCL 50 MG TABLET 150 MG PO (21:20)
[2021-07-23] MEDS: rOPINIRole HCL 0.25 MG TABLET PO (21:21)
[2021-07-23 21:22] VITALS: BP 121/86; PULSE 79
[2021-07-23] MEDS: cloNIDine HCL 0.1 MG TABLET 0.05 MG PO (21:22)
[2021-07-24] MEDS: methADONE HCl 5 MG TABLET PO (02:52)
[2021-07-24 02:53] VITALS: BP 106/49; PULSE 74
[2021-07-24] MEDS: cloNIDine HCL 0.1 MG TABLET 0.05 MG PO (02:53)
[2021-07-24] MEDS: Levothyroxine Sodium 75 MCG TABLET PO (05:59)
[2021-07-24 06:00] VITALS: BP 132/82; PULSE 85; RESP 16; TEMP 36.4; O2SAT 100
[2021-07-24] MEDS: Ibuprofen 600 MG TABLET PO (07:16)
[2021-07-24] MEDS: polyethylene glycoL 3350 17 GM POWD.PACK PO (08:28)
[2021-07-24] MEDS: FLUoxetine HCl 10 MG CAPSULE PO (08:29)
[2021-07-24] MEDS: Docusate Sodium 100 MG CAPSULE PO ×2 (08:29→20:56)
[2021-07-24] MEDS: methADONE HCl 20 MG/2 ML ORAL.CONC 70 MG PO (08:29)
[2021-07-24] MEDS: OXcarbazepine 300 MG TABLET PO ×2 (08:29→20:56)
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
--- NOTE | 2021-07-24 19:13 | PC.NURSE ---
Patient c/o feeling like I'm going to black out Orthostatic BP and heart rate done at 1900: Lyin/59 BP and hear rate 84; sitting 102/53 BP and heart rate 93; standing 83/50 BP with heart rate 118. Patient asked if he was still being given any medication for blood pressure; he said he has not been on any for some time due to losing 70 pounds since February 2021. This parts data writer checked his MAR and noted he has been order Cozaar 50 mg po daily since 07/19/21. Patient stated I'm not taking that any more .DEEPAK caputo, Dr. Tate signal intelligence/electronic warfare provider notified via [employer].
[2021-07-24 20:49] VITALS: BP 89/54; TEMP 37.1; O2SAT 98
[2021-07-24] MEDS: rOPINIRole HCL 0.25 MG TABLET PO (20:56)
[2021-07-24] MEDS: traZODone HCL 50 MG TABLET 150 MG PO (20:56)
[2021-07-25 06:00] VITALS: BP 113/73; PULSE 88; RESP 18; TEMP 37.1; O2SAT 99
[2021-07-25] MEDS: Levothyroxine Sodium 75 MCG TABLET PO (06:34)
[2021-07-25] MEDS: OXcarbazepine 300 MG TABLET PO (08:27)
[2021-07-25] MEDS: methADONE HCl 20 MG/2 ML ORAL.CONC 75 MG PO (08:27)
[2021-07-25] MEDS: polyethylene glycoL 3350 17 GM POWD.PACK PO (08:27)
[2021-07-25] MEDS: Docusate Sodium 100 MG CAPSULE PO (08:27)
[2021-07-25] MEDS: FLUoxetine HCl 10 MG CAPSULE PO (08:27)
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
[2021-07-25] MEDS: Naloxone HCl Nasal TAKE HOME 4 MG SPRAY NOSTRILALT (13:30)
[2021-07-25 14:10] LABS: HCG Quantitative 3 mIU/mL
== END 2021-07-25 13:30 | disposition home or self-care (01) | DRG 751 ==
LOC: HO.ED 21:20 → HO.PM5 06-26 15:28
PROVIDERS: Clinical Nurse Specialist Psychiatric/Mental Health, Adult; Nurse Practitioner Family; Physician Assistant; Psychiatry & Neurology Psychiatry; Registered Nurse; Social Worker; Admitting Provider Psychiatry & Neurology Psychiatry; Emergency Provider Emergency Medicine; Visit Provider Psychiatry & Neurology Psychiatry
DX: F33.3 Major depressive disorder, recurrent, severe with psychotic symptoms (principal); R45.851 Suicidal ideations; E06.3 Autoimmune thyroiditis; F11.20 Opioid dependence, uncomplicated; F17.210 Nicotine dependence, cigarettes, uncomplicated; F43.10 Post-traumatic stress disorder, unspecified; Z71.6 Tobacco abuse counseling; Z20.822 Contact with and (suspected) exposure to COVID-19; Z59.02 Unsheltered homelessness; Z79.890 Hormone replacement therapy; Z79.899 Other long term (current) drug therapy
CPT/HCPCS: 36415; 71046; 73110; 73130; 74018; 80048; 80053; 80061; 80076; 80307; 81001; 81003; 81025; 82077; 82306; 82550; 82607; 82746; 82947; 83036; 83540; 83605; 83735; 84439; 84443; 84484; 84702; 85025; 85652; 86140; 86376; 86704; 86706; 86709; 86803; 87040; 87077; 87147; 87186; 87205; 87340; 87389; 87491; 87591; 87635; 93005; 96360; 96361; 96372; 99285; 99291; J0696; J2270; Q0163

== ENCOUNTER 2021-11-19 07:13 | Inpatient (IN) | payer MEDICAID, SELFPAY ==
--- NOTE | ~2021-11-19 | XR_ITS ---
EXAMINATION: XR CHEST CLINICAL INFORMATION: Chest pain COMPARISON: Previous chest x-ray May 2021 TECHNIQUE: Frontal view of the chest was obtained. FINDINGS: The cardiac silhouette is slightly enlarged. Hilar and mediastinal contours are unremarkable. There may be mild central bronchiectasis and bronchial wall thickening, particularly in the right upper lobe. The lungs are clear. There is no pleural effusion or pneumothorax. There are degenerative changes of the spine. XR/XR chest 1V IMPRESSION: Slightly enlarged cardiac silhouette. Question mild bronchiectasis and bronchial wall thickening, particularly in the right upper lobe.
--- NOTE | ~2021-11-19 | CT_ITS ---
EXAMINATION: CT ANGIOGRAM OF THE CHEST WITH AND WITHOUT CONTRAST (CT PULMONARY ANGIOGRAM FOR PE) CLINICAL INFORMATION: Reason for Exam ? PE COMPARISON: CT of the chest done on 10/18/2020. TECHNIQUE: Prior to contrast administration, noncontrast localization images were obtained. Subsequently, multidetector volumetric imaging was performed from the thoracic inlet to below the diaphragms following the administration of 65 mL Omnipaque 350 intravenous contrast. No contrast reaction reported Sagittal, coronal, and MIP oblique sagittal reformatted images were obtained on the CT workstation, uploaded to PACS, and reviewed. This CT examination was performed using dose optimization techniques as appropriate, variously including the following: *Automated exposure control *Adjustment of mA and/or kV according to patient size (this includes techniques or standardized protocols for targeted exams where dose is matched to indication/reason for exam; i.e. extremities or head) *Use of iterative reconstruction technique Total exam dose-length product 257 mGy-cm FINDINGS: QUALITY OF STUDY/CONTRAST BOLUS: Satisfactory. PULMONARY ARTERIES: No central or segmental pulmonary emboli. THORACIC AORTA: No aneurysm or dissection. LUNG: Multilobar nonspecific groundglass airspace disease is noted throughout both lung tierney, nonspecific in appearance, may represent interstitial edema or infection or combination thereof, new since prior study. The tracheobronchial tree is patent. PLEURA: No pleural effusion or pneumothorax. MEDIASTINUM: There is a mild cardiomegaly present. Trace amount of pericardial effusion is noted. No hilar or mediastinal lymphadenopathy. No evidence of septal bowing or right heart strain. CHEST WALL/AXILLA: No axillary or internal mammary lymphadenopathy. OSSEOUS STRUCTURES: No acute or suspicious osseous abnormality. UPPER ABDOMEN: Hypodense bilateral adrenal nodules are noted, appear similar to prior study dated 10/18/2020. No reflux of contrast into the hepatic veins to suggest elevated right heart pressures. CT/CT angio chest PE protocol IMPRESSION: 1. No CT evidence of pulmonary thromboembolism. 2. Multilobar nonspecific groundglass airspace noted throughout both lung tierney, may represent interstitial edema or infection or combination thereof, new since prior study. 3. Mild cardiomegaly and trace pericardial effusion, new since prior study. 4. Stable bilateral adrenal hypodense nodules, unchanged since prior study dated 10/18/2020. VTE: Negative.
--- NOTE | 2021-11-19 07:18 | ECG_ITS ---
Test Reason : CP Blood Pressure : / mmHG Vent. Rate : 067 BPM Atrial Rate : 067 BPM P-R Int : 158 ms QRS Dur : 086 ms QT Int : 392 ms P-R-T Axes : 063 076 023 degrees QTc Int : 414 ms Normal sinus rhythm Nonspecific ST and T wave abnormality Abnormal ECG When compared with ECG of 17-JUL-2021 13:36, Inverted T waves have replaced nonspecific T wave abnormality in Lateral leads QT has shortened Referred By: Generic ED Physician Electronically Signed By:GIOVANY MEADOWS MD
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
[2021-11-19 08:51] LABS: MANUAL DIFF FLAG NO
[2021-11-19 08:53] LABS: Basophils Percent Auto 0.5 % (0-2); Eosinophils Absolute Auto 0.4 X10*3/uL (0.0-0.4); Eosinophils Percent Auto 6.7 % (0-4); Hematocrit 39.3 % (37.0-47.0); Hemoglobin 12.8 g/dl (12.0-16.0); Imm Gran Abs Auto 0.01 X10*3/uL (0.00-0.03); Imm Gran Pct Auto 0.2 % (0.0-0.4); Lymphocytes Absolute Auto 2.5 X10*3/uL (1.2-4.9); Lymphocytes Percent Auto 44.5 % (20-40); Mean Corpuscular HGB Conc 32.6 g/dl (31.0-35.0); Mean Corpuscular Hemoglobin 30.5 pg (27.0-33.0); Mean Corpuscular Volume 93.6 fL (80.0-98.0); Monocytes Absolute Auto 0.3 X10*3/uL (0.1-1.2); Monocytes Percent Auto 5.8 % (2-11); Neutrophils Absolute Auto 2.3 x10*3/uL (2.0-8.3); Neutrophils Percent Auto 42.3 % (45-73); Platelet Count 251 X10*3/uL (160-400); Red Cell Distribution Width 12.2 % (11.0-16.0); White Blood Count 5.5 X10*3/uL (4.8-10.8)
[2021-11-19 09:19] LABS: D Dimer High Sensitivity < 150 NG/ML
[2021-11-19 09:26] LABS: Alanine Aminotransferase 22 U/L (0-31); Albumin Level 4.2 g/dL (3.5-5.0); Alkaline Phosphatase 60 U/L (39-117); Anion Gap 11 (12-20); Aspartate Amino Transferase 42 U/L (5-31); Bilirubin Direct < 0.2 mg/dL (0.0-0.5); Bilirubin Total 0.4 mg/dL (0.0-1.0); Blood Urea Nitrogen 13 mg/dL (9-16); Carbon Dioxide 28 mmol/L (22-29); Chloride 104 mmol/L (96-108); Estimated Glomerular Filt Rate > 60; Glucose Random 66 mg/dL (60-115); Potassium 4.8 mmol/L (3.3-5.1); Sodium 138 mmol/L (135-145); Total Protein 7.6 g/dL (6.5-8.0)
[2021-11-19 09:31] LABS: Troponin-I High Sensitivity 7.4 ng/L (<3.5-17.0)
[2021-11-19] MEDS: ondansetron HCL 4 MG/2 ML VIAL IVPUSH (10:32)
[2021-11-19 11:15] VITALS: BP 101/65; PULSE 62; RESP 12; TEMP 36.8; O2SAT 98; BMI 28.3
[2021-11-19 11:46] VITALS: BP 106/71; PULSE 60; RESP 15; O2SAT 98
[2021-11-19] MEDS: iohexoL 350 MG/ML 100 ML INFUS..BTL IV (11:56)
[2021-11-19 12:00] VITALS: BP 93/59; PULSE 63; RESP 14; O2SAT 96
[2021-11-19 12:13] LABS: Troponin-I High Sensitivity 17.7 ng/L (<3.5-17.0)
--- NOTE | 2021-11-19 12:25 | PC.NURSE ---
pt a&ox3, vss - pt slightly hypotensive. pt c/o intermittent chest pain (5/10) - NSR on residential monitor. no new orders at this time.
[2021-11-19 13:37] VITALS: BP 97/64; PULSE 66; RESP 17; O2SAT 99
--- NOTE | 2021-11-19 14:17 | PC.NURSE ---
pt a&ox3, vss, pt pending phlebotomy to draw blood cultures.
--- NOTE | 2021-11-19 14:38 | PHA.MEDREC ---
MED REC COMPLETE, PER PATIENT HAS ONLY BEEN TAKING METHADONE BECAUSE SHE HAS RUN OUT OF REFILLS AND IS WAITING TO GET IN FOR AN APPOINTMENT Pharmacy Consult ? Medication Reconciliation Pharmacy has completed the medication reconciliation.
[2021-11-19 14:52] LABS: COVID-19 Test Negative (Negative)
--- NOTE | 2021-11-19 14:58 | PC.NURSE ---
phlebotomy attempted to get labs and was unable to get them, a second vessel welder will be coming to try as well.
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
[2021-11-19] MEDS: cefEPime HCl 2 GM in 0.9 % Sodium Chloride 50 ML IV (15:49)
[2021-11-19] MEDS: Enoxaparin Sodium 40 MG/0.4 ML SYRINGE SUBCUT (15:49)
--- NOTE | 2021-11-19 15:55 | PC.NURSE ---
pts iv site infiltrated at the start of abx, provider notified and is at bedside to attempt us guided iv site
[2021-11-19 16:09] LABS: Troponin-I High Sensitivity 12.7 ng/L (<3.5-17.0)
[2021-11-19 16:19] LABS: Erythrocyte Sedimentation Rate 5 MM/HR (0-20)
[2021-11-19 16:31] VITALS: BP 100/53; PULSE 74; RESP 18; O2SAT 97
--- NOTE | 2021-11-19 16:43 | MHC.RECOVSUP ---
Recovery Support note: Patient is a 51 year old [place]awian speaking female who presented [place] [facility] due to chest pain and lightheadedness. This headline writer met with patient to discuss methadone maintenance treatment. Patient reports she goes to [facility] on [facility] and that she was last dosed this morning with 75mg. Clinic is closed at this time. This headline writer will contact [facility] in the morning to verify patient's enrollment so that patient can continue dosing in the hospital while admitted.
[2021-11-19] MEDS: vancomycin HCL 1,000 MG in 0.9 % Sodium Chloride 250 ML 270 MG IV (17:01)
--- NOTE | 2021-11-19 17:03 | PC.NURSE ---
second iv antibiotic running per order
--- NOTE | 2021-11-19 17:04 | PC.NURSE ---
patient a&ox3, monitoring engineer intact- nsr, vss, call [place] within reach, will continue to monitor
[2021-11-19] MEDS: Piperacillin Sodium/Tazobactam 3.375 GM in 0.9 % Sodium Chloride 50 ML IV (18:21)
[2021-11-19] MEDS: diphenhydrAMINE HCL 50 MG/ML VIAL 25 MG IVPUSH (18:42)
--- NOTE | 2021-11-19 18:42 | PC.NURSE ---
medicated per provider order.
--- NOTE | 2021-11-19 19:05 | PC.NURSE ---
itching resolved per pt.
[2021-11-19 20:35] VITALS: BP 91/56; PULSE 75; RESP 13; O2SAT 95
--- NOTE | 2021-11-19 21:07 | PC.NURSE ---
pharmacy called to retime zosyn due to the patient losing iv access and the provider needing to ultrasound guide new access. pts zosyn didnt finish until 1902.
[2021-11-20] MEDS: Piperacillin Sodium/Tazobactam 3.375 GM in 0.9 % Sodium Chloride 50 ML IV ×4 (01:50→19:28)
[2021-11-20] MEDS: 0.9 % Sodium Chloride Flush 3 ML SYRINGE IVFLUSH ×3 (02:07→19:28)
[2021-11-20] MEDS: vancomycin HCL 1,000 MG in 0.9 % Sodium Chloride 250 ML 270 MG IV (05:47)
[2021-11-20 06:15] VITALS: BP 104/61; PULSE 74; RESP 11; TEMP 36.8; O2SAT 98
--- NOTE | 2021-11-20 08:30 | CA_ITS ---
Transthoracic Echocardiogram Patient (Last, First, Middle): Briana Anna, Gender: Female Date of : 1970 Age: 51 Procedure Date: 11/20/2021 Procedure Type: Transthoracic Echocardiogram Location: ER Height: 160.02 cm Weight: 72.58 kg BSA: 1.76 m2 Heart Rate: bpm BP: 104 / 61 mmHg Planning Advisor: YR/TO Referring MD: Bereket Odell DO Symptoms: chest pain Study Quality: Fair ECG Rhythm: Sinus Conclusions: - The left ventricular systolic function is normal. The calculated ejection fraction is 61% by biplane method. - Mildly increased right ventricular cavity size. - The right atrium is moderately dilated. - There is moderate to severe tricuspid valve regurgitation. - There is a small pericardial effusion. Findings Left Ventricle Normal left ventricular cavity size. There is normal left ventricular wall thickness. The left ventricular systolic function is normal. The calculated ejection fraction is 61% by biplane method. There is no evidence of regional wall motion abnormalities. Diastolic function is normal for age. Right Ventricle Mildly increased right ventricular cavity size. There is normal right ventricular systolic function. Atria The left atrium is normal in size. The right atrium is moderately dilated. Aortic Valve There is a normal trileaflet aortic valve. There is mild calcification of the aortic valve. There is no aortic valve stenosis. There is no aortic valve regurgitation. Mitral Valve The mitral valve appears normal. There is trace mitral valve regurgitation. There is no mitral valve stenosis. Pulmonic Valve The pulmonic valve was not well visualized. Tricuspid Valve There is moderate to severe tricuspid valve regurgitation. The tricuspid regurgitation jet is eccentric directed toward the interatrial septum. The pulmonary artery systolic pressure is normal. Great Vessels The asc aorta is normal in size. Venous The inferior vena cava is normal in size and collapses greater than 50% with inspiration. Pericardium/Pleural There is a small pericardial effusion. Prior Study Comparison No significant change compared to prior study dated: 01/26/2004. Measurements 2D Linear Measurements IVSd: 0.86 0.6-0.9/0.6-1.0 cm LVIDd: 4.07 3.9-5.3/4.2-5.9 cm LVIDd Index: 2.31 2.4-3.2/2.2-3.1 cm/m2 LVIDs: 2.85 2.0-3.6 cm LVPWd: 0.91 0.7-1.1 cm LA Diam: 3.90 2.7-3.8/3.0-4.0 cm LAIDs Index: 2.22 1.5-2.3 cm/m2 LV Mass: 137.45 67-162/88-224 g LV Mass Index: 78.10 43-95/49-115 g/m2 LVOT Diam: 2.00 3.0+(-)1.3 cm 2D Systolic Function EF 4C: 66.80 >55% EF 2C: 58.30 >55% EF BiP: 61.30 >55% Mitral Valve MV Pk E: 0.75 MV PK A: 0.75 MV Decel Time: 166.00 E/A: 1.00 E'Lateral: 11.40 E'Medial: 9.79 E/E' Med: 7.60 E/E' Lat: 6.50 PHT: 49.00 MVA PHT: 4.49 Decel [place]: 4.50 Aortic Valve AoV Pk Jose Manuel: 1.52 AoV Mn Jose Manuel: 0.98 AoV VTI: 0.29 AoV Pk Grad: 9.00 Aov Mn Grad: 4.00 DESTIN Cont.VTI: 2.13 LVOT LVOT Pk Jose Manuel: 1.02 LVOT Mn Jose Manuel: 0.62 LVOT VTI: 0.20 LVOT Pk Grad: 4.00 LVOT Mn Grad: 2.00 LVOT Diam: 2.00 LVOT Area: 3.14 Diastolic Function MV Pk E: 0.75 MV Pk A: 0.75 E/A: 1.00 E'Medial: 9.79 E/E' Med: 7.60 E' Laterial: 11.40 E/E' Lat: 6.50 Right Ventricle TAPSE (mm): 26.00 TVS' Jose Manuel: 10.20 Tricuspid Valve TR Pk Jose Manuel: 2.69 TR Pk Grad: 29.00 RA Press: 3.00 RVSP: 32.00 Great Vessels Aorta Sinus of Valsalva: 2.88 2.0-3.[address] [place]: 2.57 1.7-3.4 cm Ao Asc: 3.10 2.1-3.4 cm Updated in Other Vendor System with Status of Final Mitul Rouse MD electronically signed on 11/20/2021 12:15:06 PM with status of Final
--- NOTE | 2021-11-20 08:44 | MHC.RECOVSUP ---
Recovery Support note: Claudia at [facility] ([phone]) confirms patient is active with the [facility]. Patient last dosed in person on 11/13 and was given 13 take home bottles of 75mg. Patient confirms she last took a take home bottle prior to coming to the hospital yesterday. Verification form faxed to pharmacy.
[2021-11-20] MEDS: methADONE HCl 20 MG/2 ML ORAL.CONC 75 MG PO (09:14)
--- NOTE | 2021-11-20 09:33 | MHC.CM.PN ---
PT REPORTS SHE IS CURRENTLY STAYING WITH HER SISTER SHE REPORTS SHE IS ACTIVE WITH [facility] BUT HAS NO OTHER SERVICES PT DENIES USE OF DME SHE DOES NOT HAVE A PCP AT THIS TIME, SHE REPORTS HER LAST PROVIDER AT [facility] LEFT AND THEY WERE UNABLE TO CONNECT HER WITH A NEW ONE IMMEDIATELY SO SHE IS ON A WAIT LIST HCP ON FILE CURRENT DC PLAN IS HOME WITH SELF[facility]UMPT[facility] OF [facility] PT WILL ARRANGE TRANSPORT
[2021-11-20] MEDS: Ketorolac Tromethamine 30 MG/ML VIAL IVPUSH (09:52)
[2021-11-20] MEDS: ondansetron HCL 4 MG/2 ML VIAL IVPUSH (09:52)
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
--- NOTE | 2021-11-20 10:26 | PC.NURSE ---
pt ate breakfast, took morning meds po w/o issue. c/o nausea and migraine headache, provider aware. medications ordered and given, good effect on headache and nausea. pt is comfortable in stretcher awaiting inpt bed assignment.
--- NOTE | 2021-11-20 12:28 | PC.NURSE ---
patient arrives in over flow area at this time. patient in no obvious distress. patient requesting food, no food available in overflow unit at this time. patient denies any additional needs, updated on plan of care. will continue to monitor
[2021-11-20 12:30] VITALS: BP 101/70; PULSE 69; RESP 16; TEMP 36.4; O2SAT 100
--- NOTE | 2021-11-20 13:07 | HO.PM.IMPN ---
Subjective Subjective Date of Service: 11/20/21 Interval History: No acute issues overnight. Chest pain resolved with Toradol this a.m. Review of Systems Admits to chest pain Denies nausea vomiting diarrhea Denies shortness of breath Denies fever chills Physical Exam Vital Signs: Vital Signs: Last Vital Signs Temp 97.5 F 11/20/21 12:30 Pulse 69 11/20/21 12:30 Resp 16 11/20/21 12:30 BP 101/70 11/20/21 12:30 Pulse Ox 100 11/20/21 12:30 BMI result Body Mass Index 28.3 Const: Other: Awake alert oriented x3 no acute distress. Chest pain-free on exam Resp: Other: Clear to auscultation bilaterally no rales rhonchi wheezes Cardio: Other: No S4; positive S1-S2; no S3 murmurs rubs gallops GI: Other: Soft nontender nondistended with normoactive bowel sounds Extrem: Other: No edema bilaterally Objective Data Active Medications Enoxaparin Sodium (Enoxaparin Sodium 40 Mg/0.4 Ml Syringe) 40 mg SUBCUT Q24H [facility] Last Admin: 11/19/21 15:49 Dose: 40 mg Documented by: VALERIY Vancomycin HCl 1,000 mg/ (Sodium Chloride) 270 mls @ 270 mls/hr IV Q12H [facility] Last Infusion: 11/20/21 07:05 Dose: 0 mls/hr Documented by: ZENA Piperacillin Sod/Tazobactam (Sod 3.375 gm/ Sodium Chloride) 50 mls @ 100 mls/hr IV Q6H [facility] Last Admin: 11/20/21 12:51 Dose: 100 mls/hr Documented by: TOR-MARCELO Methadone HCl (Methadone Hcl 20 Mg/2 Ml Oral.Conc) 75 mg PO DAILY [facility] Last Admin: 11/20/21 09:14 Dose: 75 mg Documented by: ZENA Ondansetron HCl (Ondansetron Hcl 4 Mg/2 Ml Vial) 4 mg IVPUSH Q4H PRN PRN Reason: Nausea and Vomiting Last Admin: 11/20/21 09:52 Dose: 4 mg Documented by: ZENA Pharmacy Consult (Consult Rx Perform Med Rec) 1 each MISCELLANE ONCE PRN PRN Reason: Consult order Pharmacy Consult (Consult Rx Vancomycin Dosing) 1 each MISCELLANE DAILY PRN PRN Reason: Consult order Sodium Chloride (0.9 % Sodium Chloride Flush 3 Ml Syringe) 3 ml IVFLUSH QSHIFT DEWAYNE Last Admin: 11/20/21 07:05 Dose: Not Given Documented by: ZENA Non-Admin Reason: Med Not Available Labs CBC & Chem 7: 11/19/21 08:41 11/19/21 08:41 Labs: Laboratory Results - last 24 hr 11/19/21 11/19/21 11/19/21 14:24 14:54 15:37 ESR 5 Troponin I High Sens 12.7 COVID-19 (ROSAS) Negative COVID-19 Clin Com See Note Assessment and Plan (1) Multilobar lung infiltrate: Status: Acute (2) Chest pain: Status: Acute (3) Opioid use disorder, moderate, in early remission, on maintenance therapy: Status: Acute Plan 51 year old female with 2 months of nonspecific chest pain presents today with worsening of same. CTA negative for pulmonary emboli however demonstrates multi lobar airspace disease. Initial bedside echo in ER equivocal. Will admit; treat infiltrates and cardiology consult 1. Multilobar pneumonia -vancomycin/Zosyn -titrate O2 to maintain sats greater than equal to 92% 2. Chest pain -echo essentially unremarkable -chest pain likely related to pneumonia 3. Opioid abuse -care team consult -continue methadone as per their recommendations Will require IV antibiotics for treatment of multilobar pneumonia. Quality Stroke Does the patient have a stroke diagnosis?: No VTE Prior VTE?: No VTE Risk Level:: Medical - moderate - high VTE Device Contraindication: Treatment Not Indicated VTE Drug Contraindication: N/A - Med Ordered
[2021-11-20 13:34] LABS: Creatinine Clr Calc Pharmacy 65.5; Estimated Glomerular Filt Rate > 60
[2021-11-20 15:25] VITALS: BP 95/67; PULSE 68; RESP 17; TEMP 36.3; O2SAT 96
[2021-11-20] MEDS: Enoxaparin Sodium 40 MG/0.4 ML SYRINGE SUBCUT (15:42)
[2021-11-20 15:44] VITALS: BP 96/64; PULSE 66; RESP 17; TEMP 36.8; O2SAT 96
[2021-11-20 16:36] LABS: Vancomycin Trough 12.5 mcg/mL (10.0-20.0)
--- NOTE | 2021-11-20 16:48 | HE.PHANOTE ---
Vancomycin Dosing Addendum Vancomycin level 12.5 after 2 doses of 1000 mg. Cr 0.88 yesterday and today 0.98...monitor closely. Decreased dose to 750 mg q12h for predicted AUC of 479. Next trough 11/21 @1600
[2021-11-20] MEDS: vancomycin HCL 750 MG in 0.9 % Sodium Chloride 250 ML 265 MG IV (18:05)
[2021-11-20 19:09] VITALS: BP 99/62; PULSE 76; RESP 17; TEMP 36.2; O2SAT 96
[2021-11-21] VITALS: BP 93/64; PULSE 66; RESP 16; TEMP 36.8; O2SAT 92
[2021-11-21] MEDS: Piperacillin Sodium/Tazobactam 3.375 GM in 0.9 % Sodium Chloride 50 ML IV ×2 (00:48→06:52)
[2021-11-21 03:31] VITALS: BP 92/60; PULSE 68; RESP 17; TEMP 36.4; O2SAT 96
[2021-11-21] MEDS: vancomycin HCL 750 MG in 0.9 % Sodium Chloride 250 ML 265 MG IV (05:39)
[2021-11-21 06:58] VITALS: BP 105/70; PULSE 72; RESP 20; TEMP 36.7; O2SAT 96
[2021-11-21] MEDS: methADONE HCl 20 MG/2 ML ORAL.CONC 75 MG PO (08:14)
[2021-11-21] MEDS: 0.9 % Sodium Chloride Flush 3 ML SYRINGE IVFLUSH (08:17)
--- NOTE | 2021-11-21 09:52 | PM.PNCARD ---
Subjective Subjective Date of Service: 11/21/21 Interval history: She states that she is feeling good. Denies any specific complaints like angina or shortness of breath or leg swelling or palpitations or in fact any cardiac symptoms at this time. Review of Systems Review of Systems Yes all other systems are reviewed and are negative Constitutional: Reports as per HPI Eyes: Reports as per HPI Reports as per HPI Cardiovascular: Reports as per HPI, Denies acrocyanosis, Denies cool extremities, Denies chest pain, Denies leg edema, Denies lightheadedness, Denies palpitations and Denies dyspnea Respiratory: Reports as per HPI, Reports no additional respiratory complaints and Denies dyspnea Gastrointestinal: Reports as per HPI and Reports no additional gastrointestinal complaints Genitourinary: Reports as per HPI Musculoskeletal: Reports no additional musculoskeletal complaints and Reports as per HPI Skin/Breast: Reports system reviewed and no additional complaints, except as docu Reports system reviewed and no additional complaints, except as documented and Reports as per HPI Psychiatric: Reports no additional psychiatric complaints and Reports as per HPI Endocrine: Reports no additional endocrine complaints, Reports as per HPI and Denies palpitations Hematologic/Lymphatic: Reports no additional hematologic/lymphatic complaints and Reports as per HPI Allergic/Immunologic: Reports no additional allergic/immunologic complaints and Reports as per HPI Physical Exam Vital Signs: Last Vital Signs Temp 98.0 F 11/21/21 06:58 Pulse 72 11/21/21 06:58 Resp 20 11/21/21 06:58 BP 105/70 11/21/21 06:58 Pulse Ox 96 11/21/21 06:58 BMI result Body Mass Index 28.3 Const General: comfortable and no acute distress Orientation/consciousness: patient oriented x3 HEENT Other: Unremarkable Head: Yes normal to inspection Neck Neck: Yes normal visual inspection Chest Chest palpation & inspection: normal inspection of the chest Resp Auscultation: clear to auscultation bilaterally Cardio Palpation: normal PMI Heart sounds: S1 normal heart sound present, S2 normal heart sound present, no gallops, Murmur heart sound present systolic II/, at the apex and at the left sternal border and no rubs GI Palpation (GI): Soft to palpation Back/Spine/Pelvis Other: unremarkable Skin General skin exam: no rashes or lesions noted Neuro General: patient oriented x3 Extrem General: Yes normal to inspection Psych Mental Status: mental status grossly normal Objective Labs and Meds Result diagrams: 11/19/21 08:41 11/20/21 13:04 Lab results: Laboratory Results - last 24 hr 11/20/21 11/20/21 13:04 16:03 Creatinine 0.98 Estim Creat Clear Calc 65.5 Estimated GFR > 60 Vancomycin Trough 12.5 Progress Note: A&P Assessment and plan (1) Chest pain: Status: Acute (2) Troponin I above reference range: Status: Acute (3) Nonrheumatic tricuspid valve regurgitation: Status: Acute (4) Right ventricular enlargement: Status: Acute (5) Right atrial enlargement: Status: Acute (6) History of endocarditis: Status: Acute (7) Multilobar lung infiltrate: Status: Acute Plan Cardiac and other studies reviewed in detail. EKG with somewhat nonspecific appearing lateral T inversions. CT chest reported to have multilobar nonspecific ground-glass as pace throughout both lung tierney which may represent edema or infection. From cardiac, reported to have mild cardiomegaly/trace pericardial effusion. High sensitivity troponins are 7.4 followed by 17.7 followed by 12.7. Echocardiogram with preserved LVEF 61%. There is mildly increased at ventricular size. Right atrium is also enlarged. There is moderate to severe tricuspid regurgitation. Small pericardial effusion. Of note, when compared to prior echocardiogram from 2003, no significant change and hence these have been chronic. Findings are probably related to a prior endocarditis at the patient describes from more than 15 years ago. At that time, she was apparently using drugs but not since. In summary, doubt any cardiac etiology for the chest pain but she denies that today. Slight troponin leak could be from demand. No further cardiac testing necessary as an inpatient. We will arrange outpatient follow-up regarding the tricuspid regurgitation as that will need to be monitored periodically. Discussed about this with the patient and she agrees. Of note, she also does not have primary care and that will also need to be arranged. Discussed about this with the patient as well as Dr. Oedll. She is on empiric antibiotics for pneumonia. Time Spent With Patient Time: Total time spent is greater than 50% in coordination of care (as documented) at patient's floor/unit and/or counseling patient: 36min Progress Note: Quality Stroke Does the patient have a stroke diagnosis?: No Procedures Date of Service Date of Service: 11/21/21
[2021-11-21 10:43] LABS: Creatinine Clr Calc Pharmacy 61.1; Estimated Glomerular Filt Rate 55
[2021-11-21 10:57] VITALS: BP 96/72; PULSE 72; RESP 20; TEMP 36.3; O2SAT 97
[2021-11-21] MEDS: ondansetron HCL 4 MG/2 ML VIAL IVPUSH (11:14)
--- NOTE | 2021-11-21 11:56 | PM.DS ---
DS: Providers Provider Date of Service: 11/21/21 Date of admission: 11/19/21 13:37 Date of discharge: 11/21/21 Primary care physician: [facility] Consults: 11/19/21 13:39 Consult to Cardiology Routine Consulting Provider: Francisco Cullen Reason for consultation: Chest pain Has provider been notified: No 11/19/21 15:16 Consult to Care Team Routine Comment: Reason for consultation: Methadone use Has provider been notified: No DS: Diagnosis Discharge Diagnosis (1) Chest pain: Status: Acute (2) Troponin I above reference range: Status: Acute (3) Nonrheumatic tricuspid valve regurgitation: Status: Acute (4) Right ventricular enlargement: Status: Acute (5) Right atrial enlargement: Status: Acute (6) History of endocarditis: Status: Acute (7) Multilobar lung infiltrate: Status: Acute DS: Summary Hospital Course Hospital Course: 51-year-old female presents with approximately 2 months history of intermittent substernal chest pain that radiates to her arm.? She denies this pain is related to exertion.? She states it comes on periodically without provocation.? CTA scan done in the ER demonstrates multilobar nonspecific ground-glass airspace disease throughout all lung tierney; no evidence of pulmonary embolism.? Initial cardiac enzymes negative; ER physician discussed w Cardiology. Cardiology will admit for work consult in the morning Hospital course Patient admitted to telemetry started on vancomycin/Zosyn. Seen in consultation by Cardiology who reviewed echo and felt no evidence of vegetative growth mild tricuspid regurgitation. Blood cultures have been negative thus far. CTA demonstrated multi lobar pneumonia which is thought to be the cause of the patient's discomfort. At this point in time, white count is negative and she will complete a course of doxycycline. She will follow up with PCP and Cardiology as an outpatient Time Spent with Patient Time attestation: Total time spent providing and/or coordinating discharge services: Discharge coordination time: Greater than 30 minutes Quality: Safe Use of Opioids Does Pt have an Active Cancer Diagnosis on the Problem List?: No Quality: Stroke Does the patient have a stroke diagnosis?: No Physical Exam Vital Signs: Vital Signs: Last Vital Signs Temp 97.4 F 11/21/21 10:57 Pulse 72 11/21/21 10:57 Resp 20 11/21/21 10:57 BP 96/72 11/21/21 10:57 Pulse Ox 97 11/21/21 10:57 BMI result Body Mass Index 28.3 Const: Other: Awake alert oriented x3 no acute distress. Chest pain-free on exam Resp: Other: Clear to auscultation bilaterally no rales rhonchi wheezes Cardio: Other: No S4; positive S1-S2; no S3 murmurs rubs gallops GI: Other: Soft nontender nondistended with normoactive bowel sounds Extrem: Other: No edema bilaterally DS: Data Data Completed and Pending Labs on day of discharge: Laboratory Results - last 24 hr 11/20/21 11/20/21 11/21/21 13:04 16:03 09:50 Creatinine 0.98 1.05 Estim Creat Clear Calc 65.5 61.1 Estimated GFR > 60 55 Vancomycin Trough 12.5 Preliminary micro results at discharge 11/19/21 15:37 Blood Culture - Preliminary Blood - Subclavian No growth after 24 hours. 11/19/21 15:37 Blood Culture - Preliminary Blood - Subclavian No growth after 24 hours. Discharge Plan Discharge Patient Disposition: Home, Self-Care Discharge Diagnosis: Multilobar Pneumonia Referrals: [place] [Primary Care Provider] - 1 Week Discharge Medications: New renijjwuuy-mdgredgnumiuq-mxdr 50-325-40 mg Tablet 1 tab PO Q4H PRN (Reason: Headache) Qty: 20 0RF ondansetron 4 mg Tablet,Disintegrating 4 mg translingual Q6H PRN (Reason: Nausea And Vomiting) Qty: 30 0RF doxycycline hyclate 100 mg tablet 100 mg PO BID Qty: 20 0RF Continued clonidine HCl 0.1 mg Tablet 0.05 mg PO TID PRN (Reason: anxiety) 30 Days Qty: 90 0RF Protocol: Hold for SBP< HOLD for SBP < : 90 fluoxetine 10 mg Capsule 10 mg PO DAILY 30 Days Qty: 30 0RF oxcarbazepine 300 mg Tablet 300 mg PO BID 30 Days Qty: 60 0RF methadone [Methadose] 10 mg/mL Concentrate 75 mg PO DAILY Qty: 0 0RF ropinirole 0.25 mg Tablet 0.25 mg PO BEDTIME 30 Days Qty: 30 0RF trazodone 50 mg Tablet 150 mg PO BEDTIME 30 Days Qty: 90 0RF docusate sodium 100 mg Capsule 100 mg PO BID 30 Days Qty: 60 0RF Rx Instructions: hold for loose stool polyethylene glycol 3350 17 gram Powder In Packet 17 g PO BIDPC 30 Days Qty: 30 0RF Metamucil Fiber Singles 3.4 gram Powder In Packet 3.4 g PO BEDTIME 30 Days Qty: 30 0RF levothyroxine 75 mcg Tablet 75 mcg PO DAILY@0600 30 Days Qty: 30 0RF Discharge Orders: Discharge Order (Routine); Ordered 11/21/21 Ordered By: Bereket Odell Diet: advance to usual diet Activity on Discharge: As tolerated Stand Alone Forms: Patient Portal Discharge page Care Plan Goals: Complete course of doxycycline Health Concerns: Follow-up with new PCP at [facility] Plan of Treatment: Follow-up with cardiology as scheduled. They will call you with appointment Assessment: CDC summary
--- NOTE | 2021-11-21 12:08 | MHC.CM.PN ---
Female 51 DX Chest pain She is discharged today to home. No home services have been ordered. Patient has arranged private transport.
[2021-11-21] MEDS: Butalb/Acetamin/Caff 50/325/40 TABLET 1 TAB PO (12:16)
== END 2021-11-21 13:41 | disposition home or self-care (01) | DRG 139 ==
LOC: HO.ED 07:31 → HO.EDOVER 13:41 → HO.IMC 11-20 13:40
PROVIDERS: Admitting Provider Hospitalist; Emergency Provider Emergency Medicine; Visit Provider Hospitalist
DX: J18.9 Pneumonia, unspecified organism (principal); F25.0 Schizoaffective disorder, bipolar type; E78.5 Hyperlipidemia, unspecified; F11.20 Opioid dependence, uncomplicated; F17.210 Nicotine dependence, cigarettes, uncomplicated; I36.1 Nonrheumatic tricuspid (valve) insufficiency; Z95.0 Presence of cardiac pacemaker; Z71.6 Tobacco abuse counseling; F43.10 Post-traumatic stress disorder, unspecified; Z59.00 Homelessness unspecified; Z91.14 Patient's other noncompliance with medication regimen; Z20.822 Contact with and (suspected) exposure to COVID-19; Z79.899 Other long term (current) drug therapy; Z79.890 Hormone replacement therapy
CPT/HCPCS: 36415; 71045; 71275; 80048; 80076; 80202; 82565; 84484; 85025; 85379; 85652; 87040; 87635; 93005; 93306; 96365; 96375; 99285; J0692; J1200; J1650; J1885; J2405; J2543; J3370; Q9967

== ENCOUNTER 2021-12-01 02:50 | Emergency (ER) | payer MEDICAID, SELFPAY ==
--- NOTE | 2021-12-01 | ECG_ITS ---
Test Reason : CHEST PAIN Blood Pressure : / mmHG Vent. Rate : 068 BPM Atrial Rate : 068 BPM P-R Int : 158 ms QRS Dur : 090 ms QT Int : 386 ms P-R-T Axes : 058 068 003 degrees QTc Int : 410 ms Normal sinus rhythm Nonspecific T wave abnormality Abnormal ECG When compared with ECG of 19-NOV-2021 07:14, No significant change was found Referred By: Generic ED Physician Electronically Signed By:GIOVANY MEADOWS MD
--- NOTE | ~2021-12-01 | XR_ITS ---
EXAMINATION: XR CHEST CLINICAL INFORMATION: Chest pain COMPARISON: 11/19/2021 TECHNIQUE: Frontal view of the chest was obtained. FINDINGS: Lung volumes are symmetric. There is suggestion of minimal patchy left basilar opacity. No evidence of pneumothorax, pulmonary edema, or pleural effusions. The cardiomediastinal silhouette is unremarkable. No acute osseous findings. XR/XR chest 1V IMPRESSION: Suggestion of minimal patchy left basilar opacity.
[2021-12-01 03:12] VITALS: BP 130/86; PULSE 72; RESP 20; TEMP 36.6; O2SAT 100; BMI 28.3
[2021-12-01 03:15] LABS: MANUAL DIFF FLAG NO
[2021-12-01 03:17] LABS: Basophils Percent Auto 0.5 % (0-2); Eosinophils Absolute Auto 0.5 X10*3/uL (0.0-0.4); Eosinophils Percent Auto 6.5 % (0-4); Hematocrit 39.8 % (37.0-47.0); Imm Gran Abs Auto 0.01 X10*3/uL (0.00-0.03); Imm Gran Pct Auto 0.1 % (0.0-0.4); Lymphocytes Absolute Auto 4.1 X10*3/uL (1.2-4.9); Lymphocytes Percent Auto 52.2 % (20-40); Mean Corpuscular HGB Conc 32.7 g/dl (31.0-35.0); Mean Corpuscular Hemoglobin 30.4 pg (27.0-33.0); Mean Corpuscular Volume 93.2 fL (80.0-98.0); Mean Platelet Volume 9.1 fL (9.4-12.3); Monocytes Absolute Auto 0.5 X10*3/uL (0.1-1.2); Monocytes Percent Auto 5.8 % (2-11); Neutrophils Absolute Auto 2.7 x10*3/uL (2.0-8.3); Neutrophils Percent Auto 34.9 % (45-73); Platelet Count 258 X10*3/uL (160-400); Red Blood Count 4.27 X10*6/uL (4.20-5.50); Red Cell Distribution Width 12.5 % (11.0-16.0); White Blood Count 7.8 X10*3/uL (4.8-10.8)
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
[2021-12-01] MEDS: Ketorolac Tromethamine 60 MG/2 ML VIAL IM (03:34)
[2021-12-01 03:35] LABS: Troponin-I High Sensitivity < 3.5 ng/L (<3.5-17.0)
[2021-12-01 03:37] LABS: Anion Gap 15 (12-20); Blood Urea Nitrogen 19 mg/dL (9-16); Calcium 9.5 mg/dL (8.4-10.2); Carbon Dioxide 22 mmol/L (22-29); Chloride 108 mmol/L (96-108); Estimated Glomerular Filt Rate > 60; Glucose Random 95 mg/dL (60-115); Potassium 4.5 mmol/L (3.3-5.1); Sodium 140 mmol/L (135-145)
== END 2021-12-01 04:08 | disposition home or self-care (01) ==
PROVIDERS: Emergency Provider Internal Medicine
DX: R07.89 Other chest pain (principal); I10 Essential (primary) hypertension; F17.210 Nicotine dependence, cigarettes, uncomplicated
CPT/HCPCS: 36415; 71045; 80048; 84484; 85025; 93005; 96372; 99284; J1885

== ENCOUNTER 2021-12-29 09:04 | Emergency (ER) | payer MEDICAID, SELFPAY ==
--- NOTE | 2021-12-29 | ECG_ITS ---
Test Reason : cp Blood Pressure : / mmHG Vent. Rate : 065 BPM Atrial Rate : 065 BPM P-R Int : 162 ms QRS Dur : 084 ms QT Int : 418 ms P-R-T Axes : 049 076 028 degrees QTc Int : 434 ms Normal sinus rhythm Normal ECG When compared with ECG of 01-DEC-2021 02:53, Nonspecific T wave abnormality, improved in Inferior leads Nonspecific T wave abnormality, improved in Lateral leads Referred By: Generic ED Physician Electronically Signed By:GIOVANY MEADOWS MD
--- NOTE | ~2021-12-29 | XR_ITS ---
EXAMINATION: XR CHEST CLINICAL INFORMATION: Chest pain COMPARISON: 12/01/2021 TECHNIQUE: Frontal view of the chest was obtained. FINDINGS: The lungs are well expanded. There is no focal consolidation, edema, or effusion. No pneumothorax. The cardiomediastinal silhouette is within normal limits. No acute osseous abnormality. XR/XR chest 1V IMPRESSION: Clear lungs.
[2021-12-29 09:08] VITALS: BP 119/82; PULSE 67; RESP 18; TEMP 36.2; O2SAT 99; BMI 28.3
[2021-12-29 09:26] LABS: MANUAL DIFF FLAG NO
[2021-12-29 09:30] LABS: Basophils Percent Auto 0.3 % (0-2); Eosinophils Absolute Auto 0.2 X10*3/uL (0.0-0.4); Eosinophils Percent Auto 4.1 % (0-4); Hematocrit 40.9 % (37.0-47.0); Hemoglobin 13.4 g/dl (12.0-16.0); Imm Gran Abs Auto 0.01 X10*3/uL (0.00-0.03); Imm Gran Pct Auto 0.2 % (0.0-0.4); Lymphocytes Absolute Auto 3.5 X10*3/uL (1.2-4.9); Mean Corpuscular HGB Conc 32.8 g/dl (31.0-35.0); Mean Corpuscular Hemoglobin 31.5 pg (27.0-33.0); Mean Platelet Volume 9.1 fL (9.4-12.3); Monocytes Absolute Auto 0.3 X10*3/uL (0.1-1.2); Monocytes Percent Auto 5.7 % (2-11); Neutrophils Absolute Auto 1.8 x10*3/uL (2.0-8.3); Neutrophils Percent Auto 30.7 % (45-73); Platelet Count 271 X10*3/uL (160-400); Red Blood Count 4.26 X10*6/uL (4.20-5.50); Red Cell Distribution Width 12.2 % (11.0-16.0); White Blood Count 5.9 X10*3/uL (4.8-10.8)
[2021-12-29 09:46] LABS: Alanine Aminotransferase 28 U/L (0-31); Albumin Level 4.1 g/dL (3.5-5.0); Alkaline Phosphatase 72 U/L (39-117); Anion Gap 13 (12-20); Aspartate Amino Transferase 44 U/L (5-31); Bilirubin Total 0.3 mg/dL (0.0-1.0); Blood Urea Nitrogen 13 mg/dL (9-16); Calcium 9.3 mg/dL (8.4-10.2); Carbon Dioxide 24 mmol/L (22-29); Chloride 104 mmol/L (96-108); Creatinine Clr Calc Pharmacy 63.6; Estimated Glomerular Filt Rate 58; Glucose Random 85 mg/dL (60-115); Potassium 4.4 mmol/L (3.3-5.1); Sodium 137 mmol/L (135-145); Total Protein 7.6 g/dL (6.5-8.0)
[2021-12-29 09:50] LABS: Troponin-I High Sensitivity 4.9 ng/L (<3.5-17.0)
[2021-12-29] MEDS: Ketorolac Tromethamine 30 MG/ML VIAL IM (10:59)
[2021-12-29] MEDS: Lidocaine HCl Viscous 2 % 15 ML SOLUTION MUCOUS MEM (10:59)
[2021-12-29] MEDS: Famotidine 20 MG TABLET PO (10:59)
[2021-12-29] MEDS: Magnesium Hydrox/Alum Hydrox 30 ML ORAL.SUSP PO (10:59)
[2021-12-29 11:05] LABS: Magnesium 1.8 mg/dL (1.6-2.6)
[2021-12-29 11:14] LABS: B Type Natriuretic Peptide 44 pg/mL (<100)
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
[2021-12-29 11:45] LABS: COVID-19 Test Negative (Negative); IDNOW Serial# 16C4AD1C
[2021-12-29 11:46] LABS: Influenza A Negative (Negative); Influenza B2 Negative (Negative)
[2021-12-29 12:54] LABS: Troponin-I High Sensitivity 11.5 ng/L (<3.5-17.0)
[2021-12-29 15:21] VITALS: BP 139/84; PULSE 60; RESP 16; TEMP 36.6; O2SAT 97
--- NOTE | 2021-12-29 15:26 | PC.NURSE ---
Patient alert and oriented x 3. Patient still c/o chest pain/pressure radiating to back 03/07. all test negative so far. troponin to be drawn soon. Will continue with plan of care.
[2021-12-29 16:11] LABS: Troponin-I High Sensitivity 9.5 ng/L (<3.5-17.0)
== END 2021-12-29 16:44 | disposition home or self-care (01) ==
PROVIDERS: Physician Assistant; Emergency Provider Internal Medicine
DX: R07.89 Other chest pain (principal); I07.1 Rheumatic tricuspid insufficiency; I10 Essential (primary) hypertension; F17.210 Nicotine dependence, cigarettes, uncomplicated; Z20.822 Contact with and (suspected) exposure to COVID-19
CPT/HCPCS: 36415; 71045; 80053; 83735; 83880; 84484; 85025; 87502; 87635; 93005; 96372; 99284; J1885

== ENCOUNTER 2022-05-04 09:18 | Outpatient (REF) | payer MEDICAID, SELFPAY ==
--- NOTE | ~2022-05-04 | CT_ITS ---
EXAMINATION: CT CHEST WITH CONTRAST CLINICAL INFORMATION: Chest pain. COMPARISON: Previous chest x-ray December 2021 and chest CTA October [address] September 2020 TECHNIQUE: Multidetector volumetric CT imaging of the chest was obtained after the administration of 65 mL of Omnipaque 350 intravenous contrast without immediate adverse reactions. Axial MIP volume rendering provided. Sagittal and coronal reformatted images were obtained. This CT examination was performed using dose optimization techniques as appropriate, variously including the following: *Automated exposure control *Adjustment of mA and/or kV according to patient size (this includes techniques or standardized protocols for targeted exams where dose is matched to indication/reason for exam; i.e. extremities or head) *Use of iterative reconstruction technique DLP: 118 mGy-cm FINDINGS: LUNGS: There are increased linear markings seen at the lung bases in both lower lobes and in the posterior segment of the right upper lobe. This is similar to older exam September 2020 and most suggestive of scarring or chronic subsegmental atelectasis. The lungs are otherwise clear. No evidence of emphysema. No bronchiectasis. No endobronchial or endotracheal lesion. MEDIASTINUM: There is a small pericardial effusion new from prior exam. Normal heart size. No enlarged lymph nodes. Normal caliber thoracic aorta. Normal visualized thyroid gland. CORONARY ARTERY CALCIFICATION: None visualized on this study. PLEURA: There is no pleural effusion. No pleural mass or thickening. AXILLA: No lymphadenopathy. UPPER ABDOMEN: Stable bilateral adrenal nodules. The gallbladder has been removed. OSSEOUS STRUCTURES: Degenerative changes of the spine. Question mild old compression fracture of the superior endplate of the T12 vertebral body unchanged. CT/CT chest w IV con IMPRESSION: Linear scarring or chronic subsegmental atelectasis in both lower lobes and posterior segment of the right upper lobe similar to previous exams. New small pericardial effusion. Stable bilateral adrenal nodules. Fleischner guidelines were followed.
[2022-05-04] MEDS: iohexoL 350 MG/ML 75 ML INFUS..BTL IV (11:03)
[2022-05-08 07:38] LABS: Creatinine POC 0.6 mg/dL (0.5-1.4); GFR POC > 60
== END 2022-05-04 09:19 | disposition home or self-care (01) ==
LOC: HO.CT 09:18
PROVIDERS: Visit Provider Internal Medicine
DX: I07.1 Rheumatic tricuspid insufficiency (principal); R07.89 Other chest pain; R91.8 Other nonspecific abnormal finding of lung field
CPT/HCPCS: 71260; 82565; Q9967

== ENCOUNTER 2023-02-18 11:32 | Emergency (ER) | payer MEDICAID, SELFPAY ==
--- NOTE | 2023-02-18 | ECG_ITS ---
Test Reason : cp Blood Pressure : / mmHG Vent. Rate : 080 BPM Atrial Rate : 080 BPM P-R Int : 172 ms QRS Dur : 082 ms QT Int : 388 ms P-R-T Axes : 063 060 022 degrees QTc Int : 447 ms Normal sinus rhythm Normal ECG When compared with ECG of 29-DEC-2021 09:06, No significant change was found Referred By: Generic ED Physician Electronically Signed By:GIOVANY MEADOWS MD
--- NOTE | ~2023-02-18 | XR_ITS ---
EXAMINATION: XR CHEST CLINICAL INFORMATION: Pain COMPARISON: Chest 12/29/2021, 12/01/2021 TECHNIQUE: 2 views of the chest were obtained. FINDINGS: The lungs are well expanded and clear. No focal consolidation, interstitial pulmonary edema or pneumothorax. No pleural effusion. No significant abnormality is noted involving the heart, mediastinum, bony thorax or soft tissues. XR/XR chest 2V IMPRESSION: No acute cardiopulmonary disease.
[2023-02-18 11:40] VITALS: BP 121/94; PULSE 77; RESP 18; TEMP 36; O2SAT 96; BMI 27.4
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
[2023-02-18 12:08] LABS: MANUAL DIFF FLAG NO
[2023-02-18 12:19] LABS: Basophils Percent Auto 0.3 % (0-2); Eosinophils Absolute Auto 0.1 X10*3/uL (0.0-0.4); Eosinophils Percent Auto 1.2 % (0-4); Hematocrit 41.9 % (37.0-47.0); Hemoglobin 13.9 g/dl (12.0-16.0); Imm Gran Abs Auto 0.01 X10*3/uL (0.00-0.03); Imm Gran Pct Auto 0.1 % (0.0-0.4); Lymphocytes Absolute Auto 1.9 X10*3/uL (1.2-4.9); Lymphocytes Percent Auto 27.8 % (20-40); Mean Corpuscular HGB Conc 33.2 g/dl (31.0-35.0); Mean Corpuscular Hemoglobin 31.1 pg (27.0-33.0); Mean Corpuscular Volume 93.7 fL (80.0-98.0); Mean Platelet Volume 9.5 fL (9.4-12.3); Monocytes Absolute Auto 0.5 X10*3/uL (0.1-1.2); Monocytes Percent Auto 7.2 % (2-11); Neutrophils Absolute Auto 4.4 x10*3/uL (2.0-8.3); Neutrophils Percent Auto 63.4 % (45-73); Platelet Count 268 X10*3/uL (160-400); Red Blood Count 4.47 X10*6/uL (4.20-5.50); Red Cell Distribution Width 12.1 % (11.0-16.0)
[2023-02-18 12:23] LABS: Prothrombin Time 11.6 SEC (10.0-13.1)
[2023-02-18 12:26] LABS: Partial Thromboplastin Time 29.6 SEC (26.0-36.4)
[2023-02-18 12:30] LABS: B Type Natriuretic Peptide 69 pg/mL (<100)
[2023-02-18 12:40] LABS: Alanine Aminotransferase 20 U/L (0-31); Alkaline Phosphatase 80 U/L (39-117); Anion Gap 10 (12-20); Aspartate Amino Transferase 30 U/L (5-31); Bilirubin Total 0.4 mg/dL (0.0-1.0); Blood Urea Nitrogen 13 mg/dL (9-16); Calcium 9.5 mg/dL (8.4-10.2); Carbon Dioxide 25 mmol/L (22-29); Chloride 109 mmol/L (96-108); Creatinine Clr Calc Pharmacy 75.5; Estimated Glomerular Filt Rate > 60; Glucose Random 85 mg/dL (60-115); Lipase 8 U/L (8-78); Sodium 140 mmol/L (135-145); Total Protein 7.5 g/dL (6.5-8.0); Troponin-I High Sensitivity < 2.7 ng/L (<3.5-17.0)
--- OUTSIDE RECORDS SUMMARY | 2023-02-18 12:59 | XMS_ITS | Continuity of Care Document ---
Author Name Unknown Organization [facility] Address [address] [place] [id number]- Care Team Providers Care Rn Palliative Name Role Phone Latrice Knowles MD Primary Care Physician Encounter [facility] [id number] Date(s): 12/08/19 - 01/07/20 [facility] [address] [place] [id number]- [facility] Attending Physician: Jae Osorio Admitting Physician: AdmtrJae Referring Physician: Admtr, Ar8 Allergies, Adverse Reactions, Alerts Substance Reaction Severity Status NKA Active Medications Bisacodyl 0 Refills, Maintenance, 08/27/19 14:05:00 EST Start Date: 08/27/19 Status: Ordered Clonazepam By Mouth, 3 times a day, 0 Refills, Maintenance, 08/27/19 14:05:00 EST Start Date: 08/27/19 Status: Ordered Clonidine 0 Refills, Maintenance, 08/27/19 14:05:00 EST Start Date: 08/27/19 Status: Ordered Colace 2-in-1 By Mouth, Daily at bedtime, 0 Refills, Maintenance, 08/27/19 14:05:00 EST Start Date: 08/27/19 Status: Ordered HydrOXYzine 0 Refills, Maintenance, 08/27/19 14:05:00 EST Start Date: 08/27/19 Status: Ordered ibuprofen 400 mg oral tablet 1 tablet = 400 mg, By Mouth, Every 4 hours, PRN for pain, # 18 tablet, 0 Refills, Maintenance, 12/03/13 12:12:25, Tablet Start Date: 12/03/13 Stop Date: 12/06/13 Status: Ordered ibuprofen 600 mg oral tablet 1 tablet = 600 mg, By Mouth, 4 times a day, PRN Pain, # 40 tablet, 0 Refills, Maintenance Start Date: 01/04/11 Status: Ordered lubiprostone 24 mcg oral capsule 1 capsule = 24 mcg, By Mouth, 2 times a day, # 60 capsule, 2 Refills, Maintenance, 10/07/19 12:54:00 EDT, Capsule, [id number] Start Date: 10/07/19 Stop Date: 01/05/20 Status: Ordered Movantik 25 mg oral tablet 1 tablet = 25 mg, By Mouth, Daily in AM, # 30 tablet, 2 Refills, Maintenance, 08/27/19 14:39:00 EST, [id number] Start Date: 08/27/19 Status: Ordered NuLYTELY with Flavor Packs oral powder for reconstitution See Instructions, as directed by office, # 1 each, 0 Refills, Maintenance, 10/07/19 12:54:00 EDT, [id number], as directed by office Start Date: 10/07/19 Status: Ordered Polyethylene Glycol 3350 = 17 Gm, By Mouth, Daily, 0 Refills, Maintenance, 08/27/19 14:04:00 EST Start Date: 08/27/19 Status: Ordered Suboxone 4 mg-1 mg sublingual film Sublingual, Daily, 0 Refills, Maintenance, 08/27/19 14:04:00 EST Start Date: 08/27/19 Status: Ordered Vitamin D3 By Mouth, Daily, 0 Refills, Maintenance, 08/27/19 14:04:00 EST Start Date: 08/27/19 Status: Ordered Zoloft 25 mg oral tablet 1 tablet = 25 mg, By Mouth, Daily, 0 Refills, Maintenance, 08/27/19 14:05:00 EST Start Date: 08/27/19 Status: Ordered Problem List Condition Effective Dates Status Health Status Inform ant History of substance abuse(Confirmed) Active
--- OUTSIDE RECORDS SUMMARY | 2023-02-18 12:59 | XMS_ITS | Continuity of Care Document ---
Author Name Unknown Organization [facility] Address [address] [place] [phone]- Care Team Providers Care Data Entry Email Processor Name Role Phone Benson JOHN, Latrice Tompkins [id number] Date(s): 09/09/19 - 01/07/20 [facility] [address] [place] [phone]- [facility] Attending Physician: Gil Lutz MD Admitting Physician: Gil Lutz MD Referring Physician: Latrice Knowles MD Allergies, Adverse Reactions, Alerts Substance Reaction Severity [...] 2 Refills, Maintenance, 08/27/19 14:39:00 EST, [id number] Start Date: 08/27/19 Status: Ordered NuLYTELY with [...]
[2023-02-18 13:14] VITALS: BP 124/77; PULSE 64; RESP 18; O2SAT 96
--- NOTE | 2023-02-18 13:20 | PC.NURSE ---
pt a&ox3, vss, pt coming in d/t extreme fatigue, pt states she has not left her house in a month because she feels extremely dizzy when she gets up. pt also has chest pain that radiates towards left arm, left shoulder, back and neck. pt also c/o SOB that worsens on inspirations. pt speaking in complete sentences showing no WOB, respirations are even and nonlabored. wheezing noted on expiration throughout during auscultation. pt states that these symptoms have resided for a month.
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
[2023-02-18 14:53] LABS: Appearance Urine Clear; Color Urine Dark Yellow; Glucose Urine UA Negative (Negative); Leukocyte Esterase Urine Trace (Negative); Nitrite Urine Negative (Negative); PH 5.5 (5.0-9.0); UMIC TRIGGER UACC YES; Urine Blood Negative (Negative); Urine Ketones Trace mg/dL (Negative); Urine Protein Trace mg/dL (Neg-Trace)
[2023-02-18 14:55] LABS: Bacteria Urine None Seen (None Seen); WBC Urine 0-5 /HPF (0-5)
--- NOTE | 2023-02-18 16:04 | PC.NURSE ---
this nurse marlin texted diana from patient experience to speak with the patient over her dislike of her provider, the patient was yelling at this nurse as well as on the phone yelling about her care by her doctor- the provider had explained that testing results had been negative and she was belligerent that the testing was negative. pt eloped from the ed before patient experience was able to se ept.
== END 2023-02-18 16:07 | disposition left against medical advice (07) ==
PROVIDERS: Physician Assistant; Emergency Provider Emergency Medicine Emergency Medical Services
DX: R06.02 Shortness of breath (principal); I10 Essential (primary) hypertension; E78.5 Hyperlipidemia, unspecified; F11.20 Opioid dependence, uncomplicated; Z79.899 Other long term (current) drug therapy
CPT/HCPCS: 36415; 71046; 80053; 81001; 83690; 83880; 84484; 85025; 85610; 85730; 93005; 99283; 99284

== ENCOUNTER → 2023-02-18 11:37 | Outpatient (BNV) | payer MEDICAID, SELFPAY | PROVIDERS: Emergency Provider Emergency Medicine Emergency Medical Services; Visit Provider Internal Medicine Cardiovascular Disease | DX: R07.9 Chest pain, unspecified (principal) | CPT/HCPCS: 93010 ==

== ENCOUNTER 2023-03-02 11:59 | Emergency (ER) | payer MEDICAID, SELFPAY ==
--- NOTE | ~2023-03-02 | XR_ITS ---
EXAMINATION: XR chest 2V CLINICAL INFORMATION: Chest pain COMPARISON: Prior chest x-ray 02/18/2023. TECHNIQUE: XR chest 2V Lungs and [place]: Linear density left lung base likely platelike atelectasis unchanged from prior exam. Lungs otherwise are clear. Pleura: Normal. Costophrenic angles are sharp. No pneumothorax. Heart: The heart is normal in size. Mediastinum: The mediastinum is within normal limits.. Bones: Skeletal structures included are normal for patient's age. XR/XR chest 2V IMPRESSION: * No radiographic evidence of acute cardiopulmonary disease. * Linear density left lung base likely platelike atelectasis.
[2023-03-02 12:05] VITALS: BP 141/78; PULSE 68; RESP 18; TEMP 37.2; O2SAT 98; BMI 34.5
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
--- NOTE | 2023-03-02 12:11 | ECG_ITS ---
Test Reason : CP Blood Pressure : / mmHG Vent. Rate : 063 BPM Atrial Rate : 063 BPM P-R Int : 170 ms QRS Dur : 086 ms QT Int : 410 ms P-R-T Axes : 025 044 021 degrees QTc Int : 419 ms Normal sinus rhythm Normal ECG When compared with ECG of 18-FEB-2023 11:37, No significant change was found Referred By: Dejah Mcdaniel Electronically Signed By:CRUZ EMANUEL
[2023-03-02 12:28] LABS: MANUAL DIFF FLAG NO
[2023-03-02 12:42] LABS: Basophils Percent Auto 0.6 % (0-2); Eosinophils Absolute Auto 0.3 X10*3/uL (0.0-0.4); Eosinophils Percent Auto 4.2 % (0-4); Hematocrit 41.8 % (37.0-47.0); Imm Gran Abs Auto 0.01 X10*3/uL (0.00-0.03); Imm Gran Pct Auto 0.1 % (0.0-0.4); Lymphocytes Percent Auto 45.4 % (20-40); Mean Corpuscular HGB Conc 33.5 g/dl (31.0-35.0); Mean Corpuscular Volume 92.7 fL (80.0-98.0); Mean Platelet Volume 9.8 fL (9.4-12.3); Monocytes Absolute Auto 0.3 X10*3/uL (0.1-1.2); Monocytes Percent Auto 4.2 % (2-11); Neutrophils Percent Auto 45.5 % (45-73); Platelet Count 279 X10*3/uL (160-400); Red Blood Count 4.51 X10*6/uL (4.20-5.50); Red Cell Distribution Width 11.9 % (11.0-16.0); White Blood Count 6.7 X10*3/uL (4.8-10.8)
[2023-03-02 12:44] LABS: Alanine Aminotransferase 16 U/L (0-31); Albumin Level 4.2 g/dL (3.5-5.0); Alkaline Phosphatase 80 U/L (39-117); Anion Gap 14 (12-20); Aspartate Amino Transferase 29 U/L (5-31); Bilirubin Total 0.5 mg/dL (0.0-1.0); Blood Urea Nitrogen 16 mg/dL (9-16); Calcium 9.4 mg/dL (8.4-10.2); Carbon Dioxide 21 mmol/L (22-29); Chloride 110 mmol/L (96-108); Creatinine Clr Calc Pharmacy 81.5; Estimated Glomerular Filt Rate > 60; Glucose Random 79 mg/dL (60-115); Lipase 9 U/L (8-78); Potassium 3.9 mmol/L (3.3-5.1); Sodium 141 mmol/L (135-145); Total Protein 7.8 g/dL (6.5-8.0)
[2023-03-02 12:45] LABS: COVID-19 Test Negative (Negative); IDNOW Serial# BCCEAD1C
[2023-03-02 12:51] LABS: Troponin-I High Sensitivity < 2.7 ng/L (<3.5-17.0)
[2023-03-02 14:39] VITALS: BP 122/64; PULSE 61; RESP 16; TEMP 36.7; O2SAT 96
[2023-03-02 14:56] VITALS: BP 111/63; BP 124/75; PULSE 58; PULSE 62
[2023-03-02 14:57] VITALS: BP 98/65; PULSE 65
[2023-03-02 15:08] LABS: Appearance Urine Clear; Color Urine Dark Yellow; Glucose Urine UA Negative (Negative); Leukocyte Esterase Urine Trace (Negative); Nitrite Urine Negative (Negative); PH 5.5 (5.0-9.0); Specific Gravity - Urine >= 1.030 (1.005-1.025); UMIC TRIGGER UACC YES; Urine Blood Negative (Negative); Urine Ketones 15 mg/dL (Negative); Urine Protein Trace mg/dL (Neg-Trace)
[2023-03-02 15:14] LABS: Bacteria Urine None Seen (None Seen); Squamous Epithelial Cell Urine 0-2 /HPF (0-2); UACC Culture Trigger YES; UPreg QC Valid YES; Urine Pregnancy NEGATIVE (NEGATIVE)
[2023-03-02] MEDS: 0.9 % Sodium Chloride 1,000 ML 999 ML IV (15:36)
[2023-03-02] MEDS: Meclizine HCl 25 MG TABLET PO (15:42)
[2023-03-02] MEDS: ondansetron HCL 4 MG/2 ML VIAL IVPUSH (15:42)
--- NOTE | 2023-03-02 15:49 | PC.NURSE ---
18G IJ placed by U/S by MD Howard. pt reports paiin to her neck shortly after IV line placement. informed pt we can remove the line and she will get PO meds. pt reported she will try to tolerate it . IV line remains in place at this time. NS running in.
[2023-03-02] MEDS: cephALEXin 500 MG CAPSULE PO (17:04)
== END 2023-03-02 17:08 | disposition home or self-care (01) ==
PROVIDERS: Nurse Practitioner Family; Emergency Provider Emergency Medicine
DX: R42 Dizziness and giddiness (principal); N39.0 Urinary tract infection, site not specified; Z20.822 Contact with and (suspected) exposure to COVID-19
CPT/HCPCS: 71046; 80053; 81001; 81003; 81025; 83690; 84484; 85025; 87086; 87635; 93005; 96361; 96374; 99284; 99285; J2405

== ENCOUNTER → 2023-03-02 12:11 | Outpatient (BNV) | payer MEDICAID, SELFPAY | PROVIDERS: Emergency Provider Emergency Medicine; Visit Provider Internal Medicine | DX: R07.9 Chest pain, unspecified (principal) | CPT/HCPCS: 93010 ==

== ENCOUNTER 2023-09-15 12:47 | Emergency (ER) | payer MEDICAID, SELFPAY ==
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
[2023-09-15 13:38] VITALS: BP 120/86; PULSE 73; RESP 14; TEMP 36.8; O2SAT 98; BMI 29.6
== END 2023-09-15 15:03 | disposition home or self-care (01) ==
PROVIDERS: Emergency Provider Emergency Medicine
DX: B00.89 Other herpesviral infection (principal)
CPT/HCPCS: 99282; 99283

== ENCOUNTER 2023-12-09 14:04 | Outpatient (AMB) | payer MEDICAID, SELFPAY ==
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
[2023-12-09 14:22] VITALS: BP 122/76; PULSE 78; BMI 29.8
== END 2023-12-09 15:16 | disposition home or self-care (01) ==
PROVIDERS: PCP Internal Medicine; Referring Provider Internal Medicine; Visit Provider Physician Assistant
DX: E03.8 Other specified hypothyroidism (principal); E06.3 Autoimmune thyroiditis; F11.20 Opioid dependence, uncomplicated; K59.09 Other constipation
CPT/HCPCS: 99204

== ENCOUNTER 2023-12-09 14:04 | Outpatient (REF) | payer MEDICAID, SELFPAY ==
--- NOTE | ~2023-12-09 | XR_ITS ---
EXAMINATION: XR ABDOMEN KUB CLINICAL INDICATION: Opioid dependence in remission. COMPARISON: 07/03/2020. TECHNIQUE: 2 AP views of the abdomen. FINDINGS: Surgical clips right upper quadrant. Nonobstructive bowel gas pattern. Surgical clips left lower quadrant. Moderate amount of stool in the colon. Slight levoscoliosis with rotatory component and degenerative changes in the lumbar spine. XR/XR KUB IMPRESSION: Nonobstructive bowel gas pattern.
[2023-12-09 16:07] LABS: MANUAL DIFF FLAG NO
[2023-12-09 17:08] LABS: Basophils Percent Auto 0.4 % (0-2); Eosinophils Absolute Auto 0.2 X10*3/uL (0.0-0.4); Eosinophils Percent Auto 1.9 % (0-4); Hematocrit 37.8 % (37.0-47.0); Hemoglobin 12.6 g/dl (12.0-16.0); Imm Gran Abs Auto 0.02 X10*3/uL (0.00-0.03); Imm Gran Pct Auto 0.3 % (0.0-0.4); Lymphocytes Absolute Auto 2.7 X10*3/uL (1.2-4.9); Lymphocytes Percent Auto 34.6 % (20-40); Mean Corpuscular HGB Conc 33.3 g/dl (31.0-35.0); Mean Corpuscular Hemoglobin 31.5 pg (27.0-33.0); Mean Corpuscular Volume 94.5 fL (80.0-98.0); Mean Platelet Volume 9.5 fL (9.4-12.3); Monocytes Absolute Auto 0.5 X10*3/uL (0.1-1.2); Monocytes Percent Auto 5.8 % (2-11); Neutrophils Absolute Auto 4.4 x10*3/uL (2.0-8.3); Platelet Count 267 X10*3/uL (160-400); White Blood Count 7.7 X10*3/uL (4.8-10.8)
[2023-12-09 17:37] LABS: Alanine Aminotransferase 14 U/L (0-31); Albumin Level 3.9 g/dL (3.5-5.0); Alkaline Phosphatase 60 U/L (39-117); Anion Gap 14 (12-20); Aspartate Amino Transferase 26 U/L (5-31); Bilirubin Total 0.2 mg/dL (0.0-1.0); Blood Urea Nitrogen 13 mg/dL (9-16); Calcium 9.3 mg/dL (8.4-10.2); Carbon Dioxide 25 mmol/L (22-29); Chloride 108 mmol/L (96-108); Cholesterol 163 mg/dL (<200); Estimated Glomerular Filt Rate > 60; Glucose Random 78 mg/dL (60-115); HDL Cholesterol 53 mg/dL (>40); LDL Cholesterol Calculated 92 mg/dL (<100); Potassium 3.7 mmol/L (3.3-5.1); Sodium 143 mmol/L (135-145); Total Protein 7.4 g/dL (6.5-8.0); Triglycerides 93 mg/dL (<150)
[2023-12-09 17:53] LABS: Thyroid Stimulating Hormone 2.26 uIU/mL (0.32-4.0)
[2023-12-13 10:44] LABS: Hepatitis C Genotype Not Detected
== END 2023-12-09 14:05 | disposition home or self-care (01) ==
LOC: HO.LAB 14:04
PROVIDERS: PCP Internal Medicine; Referring Provider Internal Medicine; Visit Provider Physician Assistant
DX: B18.2 Chronic viral hepatitis C (principal); E03.8 Other specified hypothyroidism; F43.12 Post-traumatic stress disorder, chronic; K59.04 Chronic idiopathic constipation; Z00.01 Encounter for general adult medical examination with abnormal findings; Z79.891 Long term (current) use of opiate analgesic
CPT/HCPCS: 36415; 74018; 80053; 80061; 84443; 85025; 86803; 87902; 99212

== ENCOUNTER 2024-10-14 10:45 | Inpatient (IN) | payer MEDICAID, SELFPAY ==
--- NOTE | ~2024-10-14 | XR_ITS ---
EXAMINATION: XR CHEST 2 VIEWS HISTORY: Epigastric pain COMPARISON: Comparison is made with the prior examination dated 03/02/2023. FINDINGS: PA and lateral views of the chest are submitted. There is scarring at the left lung base. The lungs are otherwise clear. There is no pleural effusion, pneumothorax, or pulmonary vascular congestion. The heart is top normal in size. The bones are intact. XR/XR chest 2V IMPRESSION: Borderline cardiomegaly. No acute cardiopulmonary abnormality. Electronically signed by: Efraín Stallworth MD 10/14/2024 12:43 PM EDT
--- NOTE | 2024-10-14 10:48 | ECG_ITS ---
Test Reason : CHEST PAIN Blood Pressure : */* mmHG Vent. Rate : 60 BPM Atrial Rate : 60 BPM P-R Int : 166 ms QRS Dur : 88 ms QT Int : 430 ms P-R-T Axes : 71 64 88 degrees QTcB Int : 430 ms Normal sinus rhythm Marked ST abnormality, possible inferior subendocardial injury Abnormal ECG When compared with ECG of 02-Mar-2023 12:16, ST now depressed in Inferior leads Nonspecific T wave abnormality, worse in Lateral leads Referred By: Generic ED Physician Electronically Signed By: Alexandre Thompson
[2024-10-14 11:01] VITALS: BP 167/89; PULSE 58; RESP 24; TEMP 36.1; O2SAT 100; BMI 24.8
[2024-10-14] MEDS: Famotidine 20 MG TABLET PO (11:26)
[2024-10-14] MEDS: Acetaminophen 325 MG TABLET 650 MG PO (11:26)
[2024-10-14] MEDS: Magnesium Hydrox/Alum Hydrox 30 ML ORAL.SUSP PO (11:27)
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
[2024-10-14 12:29] LABS: MANUAL DIFF FLAG NO
[2024-10-14 12:30] LABS: Basophils Percent Auto 0.4 % (0-2); Eosinophils Absolute Auto 0.1 X10*3/uL (0.0-0.4); Hematocrit 37.6 % (37.0-47.0); Hemoglobin 12.9 g/dl (12.0-16.0); Imm Gran Abs Auto 0.04 X10*3/uL (0.00-0.03); Imm Gran Pct Auto 0.4 % (0.0-0.4); Lymphocytes Percent Auto 11.1 % (20-40); Mean Corpuscular HGB Conc 34.3 g/dl (31.0-35.0); Mean Corpuscular Hemoglobin 31.4 pg (27.0-33.0); Mean Corpuscular Volume 91.5 fL (80.0-98.0); Mean Platelet Volume 9.1 fL (9.4-12.3); Monocytes Absolute Auto 0.3 X10*3/uL (0.1-1.2); Monocytes Percent Auto 3.7 % (2-11); Neutrophils Absolute Auto 7.5 x10*3/uL (2.0-8.3); Neutrophils Percent Auto 83.4 % (45-73); Platelet Count 255 X10*3/uL (160-400); Red Blood Count 4.11 X10*6/uL (4.20-5.50); Red Cell Distribution Width 11.8 % (11.0-16.0)
--- NOTE | 2024-10-14 12:41 | PC.NURSE ---
Unable to gain IV access after multip[le attempts; pt refuses IV at this time; pt angry, rude to staff; pt reassured that she will be taken care of; pt also insisting that her cell phone is missing; room, belonings and laundry basket searched with no phone located; nurse discharge planner made aware
[2024-10-14 12:47] LABS: Alanine Aminotransferase 12 U/L (0-31); Alkaline Phosphatase 58 U/L (39-117); Anion Gap 11 (12-20); Aspartate Amino Transferase 35 U/L (5-31); Bilirubin Direct 0.2 mg/dL (0.0-0.5); Bilirubin Total 0.5 mg/dL (0.0-1.0); Blood Urea Nitrogen 13 mg/dL (9-16); Calcium 9.2 mg/dL (8.4-10.2); Carbon Dioxide 23 mmol/L (22-29); Chloride 109 mmol/L (96-108); Creatinine Clr Calc Pharmacy 76.8; Estimated Glomerular Filt Rate > 60; Glucose Random 125 mg/dL (60-115); Lipase 9 U/L (8-78); Magnesium 1.7 mg/dL (1.6-2.6); Potassium 4.1 mmol/L (3.3-5.1); Sodium 139 mmol/L (135-145); Total Protein 7.9 g/dL (6.5-8.0)
[2024-10-14 13:03] LABS: Troponin-I High Sensitivity 104.1 ng/L (<3.5-17.0)
--- NOTE | 2024-10-14 13:16 | ECG_ITS ---
Test Reason : CHEST PAIN Blood Pressure : */* mmHG Vent. Rate : 72 BPM Atrial Rate : 72 BPM P-R Int : 172 ms QRS Dur : 92 ms QT Int : 404 ms P-R-T Axes : 65 53 62 degrees QTcB Int : 442 ms Normal sinus rhythm Normal ECG When compared with ECG of 14-Oct-2024 10:51, ST no longer depressed in Inferior leads ST no longer depressed in Lateral leads Nonspecific T wave abnormality, improved in Lateral leads Referred By: Mildred Christie Electronically Signed By: Alexandre Thompson
[2024-10-14] MEDS: Aspirin Enteric Coated 325 MG TABLET.DR PO (14:04)
[2024-10-14] MEDS: LORazepam 1 MG TABLET PO (14:04)
[2024-10-14] MEDS: Nitroglycerin 2 % Oint 1 GM Packet 0.5 INCH TRANSDERMA (14:05)
[2024-10-14 15:23] VITALS: BP 130/76; PULSE 80; RESP 14; TEMP 36.5; O2SAT 100
[2024-10-14 15:28] LABS: Appearance Urine Clear; Color Urine Yellow; Glucose Urine UA Negative (Negative); Leukocyte Esterase Urine Negative (Negative); Nitrite Urine Negative (Negative); PH >= 9.0 (5.0-9.0); Urine Blood Negative (Negative); Urine Ketones Trace mg/dL (Negative); Urine Protein Trace mg/dL (Neg-Trace)
[2024-10-14] MEDS: 0.9 % Sodium Chloride 1,000 ML 999 ML IV (15:29)
[2024-10-14 15:38] LABS: Amphetamine Screen Urine Not Detected (Not Detect); Barbiturates, Urine Not Detected (Not Detect); Benzodiazepines Screen Urine Not Detected (Not Detect); Buprenorphine Scr Not Detected (Not Detect); Cannabinoid Screen Urine POSITIVE (Not Detect); Cocaine Screen Urine Not Detected (Not Detect); Fentanyl, urine Not Detected (Not Detect); Methadone Screen, Urine Positive (Not Detect); Opiate Screen Urine Not Detected (Not Detect); Oxycodone Screen Urine Not Detected (Not Detect); Phencyclidine Screen Urine Not Detected (Not Detect)
[2024-10-14 16:10] LABS: Troponin-I High Sensitivity 1151.4 ng/L (<3.5-17.0)
[2024-10-14 16:24] LABS: Hematocrit 36.2 % (37.0-47.0); Hemoglobin 12.3 g/dl (12.0-16.0); Mean Corpuscular Hemoglobin 31.5 pg (27.0-33.0); Mean Corpuscular Volume 92.6 fL (80.0-98.0); Mean Platelet Volume 9.2 fL (9.4-12.3); Platelet Count 266 X10*3/uL (160-400); Red Blood Count 3.91 X10*6/uL (4.20-5.50); Red Cell Distribution Width 11.7 % (11.0-16.0); White Blood Count 9.2 X10*3/uL (4.8-10.8)
[2024-10-14 16:33] LABS: Prothrombin Time 11.7 SEC (10.9-12.4)
[2024-10-14 16:35] VITALS: BMI 31.1
[2024-10-14 16:36] LABS: Partial Thromboplastin Time 27.2 SEC (26.0-36.8)
[2024-10-14] MEDS: Heparin Sodium,Porcine 5,000 UNIT/ML VIAL 3800 UNIT IVPUSH (16:51)
[2024-10-14] MEDS: Heparin Sodium,Porcine/1/2NS 25,000 UNIT/250 ML IV.SOLN 9.56 UNIT IVCONT (16:54)
--- NOTE | 2024-10-14 16:57 | PC.NURSE ---
Pt denies CP/SOB/nausea at this time; SR per tele; Heparin drip started per orders; pt resting quietly in room
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
[2024-10-14 18:05] VITALS: BP 136/69; PULSE 73; RESP 14; TEMP 36.2; O2SAT 100
[2024-10-14] MEDS: Pantoprazole Sodium 40 MG/10 ML VIAL IVPUSH (18:59)
[2024-10-14 19:18] VITALS: BP 115/75; PULSE 66; RESP 11; TEMP 36.6; O2SAT 98
--- NOTE | 2024-10-14 19:19 | PC.NURSE ---
assumed care of patient. patient resting quietly watching TV in stretcher no apparent distress noted. heparin currently running at 12units/kg/hr
--- NOTE | 2024-10-14 21:11 | PHA.MEDREC ---
Addendum entered by Nima Mcguire [facility] 10/14/24 21:30: MED REC CHECKED BY [facility] Original Note: Pharmacy Consult ? Medication Reconciliation Pharmacy has completed the medication reconciliation. Spoke to patient to confirm med list. Patient states she only takes Methadone 100 mg Daily, last dose 10/14/24 from [facility], and Levothyroxine 75 mcg.
[2024-10-14 22:22] VITALS: BP 94/61; PULSE 71; RESP 16; TEMP 36.6; O2SAT 96
[2024-10-14 23:59] LABS: PTT Heparin Drip 84.2 SEC (53-77.9)
[2024-10-15] VITALS (10 sets, daily range): BP systolic 91–113; BP diastolic 50–84; PULSE 71–84; RESP 12–18; TEMP 36.5–37.2; O2SAT 96–97
--- NOTE | 2024-10-15 | ECG_ITS ---
Test Reason : repeat cp Blood Pressure : */* mmHG Vent. Rate : 77 BPM Atrial Rate : 77 BPM P-R Int : 172 ms QRS Dur : 90 ms QT Int : 410 ms P-R-T Axes : 65 48 28 degrees QTcB Int : 463 ms Normal sinus rhythm Normal ECG When compared with ECG of 14-Oct-2024 13:25, Nonspecific T wave abnormality now evident in Inferior leads Referred By: Adriana Carolina Electronically Signed By: Alexandre Thompson
[2024-10-15] MEDS: 0.9 % Sodium Chloride Flush 3 ML SYRINGE IVFLUSH (01:19)
[2024-10-15] MEDS: Nitroglycerin 0.4 MG TAB.SUBL SUBLINGUAL ×2 (01:20→11:57)
[2024-10-15] MEDS: Lactated Ringers 1,000 ML 999 ML IV (01:22)
[2024-10-15] MEDS: Pantoprazole Sodium 40 MG/10 ML VIAL IVPUSH (05:34)
[2024-10-15] MEDS: Levothyroxine Sodium 75 MCG TABLET PO (05:34)
[2024-10-15 06:48] LABS: Prothrombin Time 11.5 SEC (10.9-12.4)
[2024-10-15 06:50] LABS: PTT Heparin Drip 67.2 SEC (53-77.9)
[2024-10-15 06:56] LABS: Hemoglobin 11.4 g/dl (12.0-16.0); Mean Corpuscular HGB Conc 34.5 g/dl (31.0-35.0); Mean Corpuscular Volume 92.7 fL (80.0-98.0); Mean Platelet Volume 9.4 fL (9.4-12.3); Platelet Count 240 X10*3/uL (160-400); Red Blood Count 3.56 X10*6/uL (4.20-5.50); Red Cell Distribution Width 11.9 % (11.0-16.0); White Blood Count 7.1 X10*3/uL (4.8-10.8)
--- NOTE | 2024-10-15 07:00 | CA_ITS ---
Transthoracic Echocardiogram Patient (Last, First, Middle): Briana Garza I Gender: Female Date of : 1970 Age: 54 Procedure Date: 10/15/2024 Procedure Type: Transthoracic Echocardiogram Location: ER Height: 160.02 cm Weight: 79.38 kg BSA: 1.83 m2 Heart Rate: 85 bpm BP: 89 / 59 mmHg Switchboard Wirer: BERNARDA Referring MD: Mildred PERSON Symptoms: nstemi. per cards Study Quality: Fair ECG Rhythm: Sinus Conclusions: - Normal left ventricular size, thickness, and systolic function. The visually estimated ejection fraction is between 55-60%. - E/E prime ratio is between 8 and 15 consistent with indeterminate filling pressures. - Mildly increased right ventricular cavity size. There is normal right ventricular systolic function. - There is moderate to severe tricuspid valve regurgitation. - There is a small pericardial effusion. Findings Left Ventricle Normal left ventricular size, thickness, and systolic function. The visually estimated ejection fraction is between 55-60%. There is no evidence of regional wall motion abnormalities. Abnormal diastolic function is noted. Spectral Doppler is indicative of an impaired relaxation filling pattern. E/E prime ratio is between 8 and 15 consistent with indeterminate filling pressures. Right Ventricle Mildly increased right ventricular cavity size. There is normal right ventricular systolic function. Atria The left atrium is normal in size. Aortic Valve There is a normal trileaflet aortic valve. There is mild thickening of the aortic valve. There is no aortic valve stenosis. There is no aortic valve regurgitation. Mitral Valve The mitral valve appears normal. There is trace mitral valve regurgitation. There is no mitral valve stenosis. Pulmonic Valve The pulmonic valve is likely normal. There is trace pulmonic valve regurgitation. Tricuspid Valve The tricuspid valve was not well visualized. There is moderate to severe tricuspid valve regurgitation. Mildly elevated right atrial pressure. There is no evidence of pulmonary hypertension. Great Vessels There is mild dilatation of the ascending aorta measuring 3.40 cm. The visualized portions of the pulmonary artery and branches are normal. Venous The inferior vena cava is dilated and collapses greater than 50% with inspiration. Pericardium/Pleural There is a small pericardial effusion. Prior Study Comparison No significant change compared to prior study dated: 11/20/2021. Measurements 2D Linear Measurements IVSd: 0.70 0.6-0.9/0.6-1.0 cm LVIDd: 4.96 3.9-5.3/4.2-5.9 cm LVIDd Index: 2.71 2.4-3.2/2.2-3.1 cm/m2 LVIDs: 3.75 2.0-3.6 cm LVPWd: 0.95 0.7-1.1 cm LA Diam: 3.50 2.7-3.8/3.0-4.0 cm LAIDs Index: 1.91 1.5-2.3 cm/m2 LV Mass: 173.04 67-162/88-224 g LV Mass Index: 94.56 43-95/49-115 g/m2 LVOT Diam: 1.90 3.0+(-)1.3 cm 2D Systolic Function EF 4C: 67.00 >55% EF 2C: 51.30 >55% EF BiP: 58.70 >55% Mitral Valve MV Pk E: 0.53 MV PK A: 1.07 MV Decel Time: 193.00 E/A: 0.50 E'Lateral: 7.07 E'Medial: 6.85 E/E' Med: 7.80 E/E' Lat: 7.50 PHT: 57.00 MVA PHT: 3.86 Decel [place]: 4.92 Aortic Valve AoV Pk Jose Manuel: 1.32 AoV Mn Jose Manuel: 0.91 AoV VTI: 0.28 AoV Pk Grad: 7.00 Aov Mn Grad: 4.00 DESTIN Cont.VTI: 2.07 LVOT LVOT Pk Jose Manuel: 1.01 LVOT Mn Jose Manuel: 0.74 LVOT VTI: 0.20 LVOT Pk Grad: 4.00 LVOT Mn Grad: 2.00 LVOT Diam: 1.90 LVOT Area: 2.84 Diastolic Function MV Pk E: 0.53 MV Pk A: 1.07 E/A: 0.50 E'Medial: 6.85 E/E' Med: 7.80 E' Laterial: 7.07 E/E' Lat: 7.50 Right Ventricle TAPSE (mm): 24.80 TVS' Jose Manuel: 11.20 Tricuspid Valve TR Pk Jose Manuel: 2.17 TR Pk Grad: 19.00 RA Press: 8.00 RVSP: 27.00 Great Vessels Aorta Sinus of Valsalva: 2.70 2.0-3.5 cm Ao Asc: 3.40 2.1-3.4 cm Ao Arch: 3.20 Pulmonary Valve PV Pk Jose Manuel: 1.07 Peak PV Grad: 5.00 Updated in Other Vendor System with Status of Final Alexandre Thompson MD electronically signed on 10/15/2024 6:20:12 PM with status of Final
--- NOTE | 2024-10-15 09:37 | MHC.CM.PN ---
Pt lives alone, she does not have home health services or use DME. She goes to [facility]. HCP is on file and confirmed: Javier PCP is confirmed: Dr. Wynn. Pt. will need assistance with transportation home at [place]. DCP: home, self care. CM to follow for DC needs.
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
--- NOTE | 2024-10-15 11:45 | PM.DS ---
DS: Providers Provider Date of Service: 10/15/24 Date of admission: 10/14/24 17:39 Date of discharge: 10/15/24 Primary care physician: Tianna Childress MD Consults: 10/14/24 17:38 Consult to Cardiology Routine Consulting Provider: [facility] Reason for consultation: NSTEMI DS: Diagnosis Discharge Diagnosis (1) Non-ST elevation myocardial infarction (NSTEMI): Status: Acute DS: Summary Hospital Course Hospital Course: Admission note HPI Pt is a 54-year-old female with a PMH significant for?endocarditis, diskitis, HLD, polysubstance use disorder on methadone, PTSD, and schizoaffective disorder who presents to the ED with?chest pain, nausea, vomiting since early this morning. Pt states symptoms began late last night and woke her from sleep. Pain is described as both an intermittent substernal burning sensation as well as a constant pressure, both of which radiate to the left side of her neck and down her left arm which also experiences numbness. Reports a long hx of bad heartburn; says similar symptoms happen all the time . Pt also complains of fever/chills during the episodes, as well as abdominal pain secondary to vomiting. Chronic SOB and mild, intermittent nonproductive cough at baseline. In the ED pt was tachypneic up 24 and initially hypertensive at 167/89. Labs were significant for initial troponin 104.1 with repeat 1151.4, otherwise grossly unremarkable and around baseline for pt. No leukocytosis. Stable H&H. No significant electrolyte abnormalities. Renal function WNL. AST mildly elevated at 35, otherwise hepatic function WNL. UA negative for UTI. CXR showed borderline cardiomegaly with no acute cardiopulmonary abnormality. EKG demonstrated normal sinus rhythm with ST depressions in inferolateral leads. Repeat EKG with improvement to ST depressions. Pt was treated with famotidine, Tylenol, Maalox, aspirin, Ativan, IVF, nitroglycerin, and started on heparin drip. Pt will be admitted to the hospital for treatment and further evaluation of acute NSTEMI requiring heparin drip. Hospital course The patient received ASA 325 mg at 1300 10/14. Started on Heparin drip and evaluated by cardiology who recommended transfer to [facility] for cardiac angiogram. Time Attestation Discharge Coordination Time (in mins): 41 Quality: Safe Use of Opioids Does Pt have an Active Cancer Diagnosis on the Problem List?: No Quality: Stroke Does the patient have a stroke diagnosis?: No Physical Exam Vital Signs: Vital Signs: Last Vital Signs Temp 97.7 F 10/15/24 06:00 Pulse 75 10/15/24 06:00 Resp 15 10/15/24 06:00 BP 99/59 L 10/15/24 06:00 Pulse Ox 96 10/15/24 06:00 O2 Del Method Room Air 10/15/24 06:00 BMI result Body Mass Index 31.1 Const: Other: Constitutional : interactive, not in distress Cardiovascular : no JVP, no lower extremity edema Respiratory : bilateral chest movement, not in resp distress Gastrointestinal: soft, lax, Non tender Skin : Warm, Dry Neurological : Alert & oriented , No focal deficit DS: Data Data Completed and Pending Labs on day of discharge: Laboratory Results - last 24 hr 10/14/24 10/14/24 10/14/24 12:23 15:16 16:18 WBC 9.0 9.2 RBC 4.11 L 3.91 L Hgb 12.9 12.3 Hct 37.6 36.2 L MCV 91.5 92.6 MCH 31.4 31.5 MCHC 34.3 34.0 RDW 11.8 11.7 Plt Count 255 266 MPV 9.1 L 9.2 L Immature Gran % (Auto) 0.4 Neut % (Auto) 83.4 H Lymph % (Auto) 11.1 L [place] % (Auto) 3.7 Eos % (Auto) 1.0 Baso % (Auto) 0.4 Lymph # (Auto) 1.0 L [place] # (Auto) 0.3 Eos # (Auto) 0.1 Baso # (Auto) 0.0 Abs Immat Gran (auto) 0.04 H Absolute Neuts (auto) 7.5 Absolute Nucleated RBC 0.000 0.000 Nucleated RBC % (auto) 0.0 0.0 PT 11.7 INR 1.0 APTT 27.2 aPTT Heparin Protocol Cancelled Sodium 139 Potassium 4.1 Chloride 109 H Carbon Dioxide 23 Anion Gap 11 L BUN 13 Creatinine 0.76 Estim Creat Clear Calc 76.8 Estimated GFR > 60 Random Glucose 125 H Calcium 9.2 Magnesium 1.7 Total Bilirubin 0.5 Direct Bilirubin 0.2 AST 35 H ALT 12 Alkaline Phosphatase 58 Troponin I High Sens 104.1 H* D 1151.4 H* D Total Protein 7.9 Albumin 4.0 Lipase 9 Urine Color Yellow Urine Appearance Clear Urine pH >= 9.0 Ur Specific [place] 1.020 Urine Protein Trace Urine Glucose (UA) Negative Urine Ketones Trace Urine Blood Negative Urine Nitrite Negative Ur Leukocyte Esterase Negative Urine Opiates Screen Not Detected Ur Buprenorphine Scrn Not Detected Ur Oxycodone Screen Not Detected Urine Methadone Screen Positive H Urine Fentanyl Screen Not Detected Ur Barbiturates Screen Not Detected Ur Phencyclidine Scrn Not Detected Ur Amphetamines Screen Not Detected U Benzodiazepines Scrn Not Detected Urine Cocaine Screen Not Detected U Marijuana (THC) Screen POSITIVE H 10/14/24 10/15/24 23:45 06:33 WBC 7.1 RBC 3.56 L Hgb 11.4 L Hct 33.0 L MCV 92.7 MCH 32.0 MCHC 34.5 RDW 11.9 Plt Count 240 MPV 9.4 Immature Gran % (Auto) Neut % (Auto) Lymph % (Auto) [place] % (Auto) Eos % (Auto) Baso % (Auto) Lymph # (Auto) [place] # (Auto) Eos # (Auto) Baso # (Auto) Abs Immat Gran (auto) Absolute Neuts (auto) Absolute Nucleated RBC 0.000 Nucleated RBC % (auto) 0.0 PT 11.5 INR 1.0 APTT aPTT Heparin Protocol 84.2 H 67.2 D Sodium Potassium Chloride Carbon Dioxide Anion Gap BUN Creatinine Estim Creat Clear Calc Estimated GFR Random Glucose Calcium Magnesium Total Bilirubin Direct Bilirubin AST ALT Alkaline Phosphatase Troponin I High Sens Total Protein Albumin Lipase Urine Color Urine Appearance Urine pH Ur Specific [place] Urine Protein Urine Glucose (UA) Urine Ketones Urine Blood Urine Nitrite Ur Leukocyte Esterase Urine Opiates Screen Ur Buprenorphine Scrn Ur Oxycodone Screen Urine Methadone Screen Urine Fentanyl Screen Ur Barbiturates Screen Ur Phencyclidine Scrn Ur Amphetamines Screen U Benzodiazepines Scrn Urine Cocaine Screen U Marijuana (THC) Screen Discharge Plan Discharge Anticipated Discharge Date/Time: 10/15/24 11:42 Patient Disposition: Xfer Acute Care Hospital Discharge Diagnosis: NSTEMI Referrals: Tianna Childress MD [Primary Care Provider] - 1 Week Discharge Medications: New heparin(porcine) in 0.45% NaCl 25,000 unit/250 mL Parenteral Solution 25,000 unit continuous IV infusion .Q0M Qty: 6000 0RF Continued levothyroxine 75 mcg Tablet 75 mcg PO DAILY@0600 30 Days Qty: 30 0RF methadone [Methadose] 10 mg/mL concentrate 100 mg PO DAILY Discharge Orders: Discharge Order (Routine); Ordered 10/15/24 Ordered By: Dmitry Veliz Diet: Advance to usual diet Activity on Discharge: As tolerated Stand Alone Forms: Patient Portal Discharge page Print Language: Syrian Care Plan Goals: Cardiac angiogram Health Concerns: NSTEMi Plan of Treatment: Heparin Assessment: as above
--- NOTE | 2024-10-15 11:45 | PC.NURSE ---
Call placed to [facility] @ [phone] to given RN to RN report for transfer and spoke with RN Janine. Janine reports she cannot take report at this time but will call back. Call back number and name provided Awaiting call back.
--- NOTE | 2024-10-15 12:29 | PC.NURSE ---
At approx. 10:00 today report received from clinching machine operator that Pt is was requesting her Methadone dose. Upon looking at MAR no active order noted. Review of Med Rec completed on 10/14/24 by Pharmacy Staff shows Methadone 100mg verified from [facility] in [place]. Review of hospitalist note on 10/14/24 indicated plan to continue methadone dosing while inpatient. Attending contacted via [employer] at 1010 reporting that Methadone order was not initiated and request for order at this time. Response received at 1014 acknowledging and stating order would be place at that time. Methadone order placed in MAR at 1124 and pending Pharmacy verification. This RN notified that Pt was to be transferred to [facility] in the immediate future. Call placed to KUNAL Mehta and RN to RN report completed at 1154. All questions answered to satisfaction. Janine advised that this RN would attempt to dose Pt with Methadone prior to departure, however dose is pending pharmacy verification. EMS arrives on scene at approx. 1158. KUNAL Gonzalez offers assistance to call Pharmacy to have order verification expedite so Pt may proceed with transfer. Meanwhile, print traffic manager report completed with [facility]. Second Panel Builder exits Pts room stating to this RN that Pt had just given herself a take home dose of Methadone from her purse. This RN consults with Pt who reports she has take home doses from the clinic with her (unbeknownst to this RN) and took a full 100mg dose at this time. At this time care of Pt relinquished to [facility] staff. Call placed to KUNAL Mehta at [facility] and informed of Pt dosing herself and advised to check with Pt on any additional doses on her person.
== END 2024-10-15 13:00 | disposition short-term general hospital (02) | DRG 190 ==
LOC: HO.ED 16:17 → HO.EDOVER 17:48
PROVIDERS: Physician Assistant; Admitting Provider Student in an Organized Health Care Education/Training Program; Emergency Provider Emergency Medicine; PCP Internal Medicine; Visit Provider Student in an Organized Health Care Education/Training Program
DX: I21.4 Non-ST elevation (NSTEMI) myocardial infarction (principal); E03.9 Hypothyroidism, unspecified; F39 Unspecified mood [affective] disorder; G43.909 Migraine, unspecified, not intractable, without status migrainosus; F11.20 Opioid dependence, uncomplicated; K21.9 Gastro-esophageal reflux disease without esophagitis; F19.90 Other psychoactive substance use, unspecified, uncomplicated; Z87.891 Personal history of nicotine dependence; Z79.890 Hormone replacement therapy
CPT/HCPCS: 36415; 71046; 80048; 80076; 80307; 81003; 83690; 83735; 84484; 85025; 85027; 85610; 85730; 93005; 93306; 99285; J1644; J2470; J7120; Q9957

== ENCOUNTER → 2024-10-14 10:48 | Outpatient (BNV) | payer MEDICAID, SELFPAY | PROVIDERS: Admitting Provider Student in an Organized Health Care Education/Training Program; Emergency Provider Emergency Medicine; PCP Internal Medicine; Visit Provider Internal Medicine Cardiovascular Disease | DX: R94.31 Abnormal electrocardiogram [ECG] [EKG] (principal); R07.9 Chest pain, unspecified | CPT/HCPCS: 93010 ==

== ENCOUNTER → 2024-10-14 12:24 | Outpatient (BNV) | payer MEDICAID, SELFPAY | PROVIDERS: Emergency Provider Emergency Medicine; PCP Internal Medicine; Visit Provider Radiology Diagnostic Radiology | DX: R10.13 Epigastric pain (principal) | CPT/HCPCS: 71046 ==

== ENCOUNTER 2024-10-14 17:39 | Outpatient (BNV) | payer MEDICAID, SELFPAY | END 2024-10-15 01:05 | PROVIDERS: Admitting Provider Student in an Organized Health Care Education/Training Program; Emergency Provider Emergency Medicine; PCP Internal Medicine; Visit Provider Internal Medicine Cardiovascular Disease | DX: I36.1 Nonrheumatic tricuspid (valve) insufficiency (principal); I31.39 Other pericardial effusion (noninflammatory); R07.9 Chest pain, unspecified | CPT/HCPCS: 93010; 93306 ==

== ENCOUNTER → 2024-10-14 17:39 | Outpatient (BNV) | payer MEDICAID, SELFPAY | PROVIDERS: Admitting Provider Student in an Organized Health Care Education/Training Program; Emergency Provider Emergency Medicine; PCP Internal Medicine; Visit Provider Student in an Organized Health Care Education/Training Program | DX: I21.4 Non-ST elevation (NSTEMI) myocardial infarction (principal) | CPT/HCPCS: 99239; 99285 ==

== ENCOUNTER → 2024-10-14 17:39 | Outpatient (BNV) | payer MEDICAID, SELFPAY | PROVIDERS: Admitting Provider Student in an Organized Health Care Education/Training Program; Emergency Provider Emergency Medicine; PCP Internal Medicine; Visit Provider Internal Medicine Cardiovascular Disease | DX: I21.4 Non-ST elevation (NSTEMI) myocardial infarction (principal) | CPT/HCPCS: 99223 ==

== ENCOUNTER 2024-11-02 10:35 | Emergency (ER) | payer MEDICAID, SELFPAY ==
--- NOTE | ~2024-11-02 | US_ITS ---
EXAMINATION: US ABDOMEN LIMITED CLINICAL INFORMATION: Right upper quadrant tenderness.. COMPARISON: None available. TECHNIQUE: Real-time imaging of the right upper quadrant abdominal viscera. FINDINGS: PANCREAS: No peripancreatic fluid collections. LIVER: Liver measures 13 cm. Normal echotexture. No nodular surface. No focal lesion seen by technologist. No intrahepatic biliary ductal dilatation. GALLBLADDER: Absent. Cholecystectomy. COMMON BILE DUCT: 5 mm. RIGHT KIDNEY: 8 cm. Normal echotexture. Normal renal cortical thickness. No hydronephrosis. No gross solid or cystic lesion. . FREE FLUID: None. US/US abdomen limited IMPRESSION: Status post cholecystectomy. No hydronephrosis, right kidney. No ascites. Negative exam. Electronically signed by: Fred Ramirez MD 11/02/2024 02:34 PM EDT
--- NOTE | ~2024-11-02 | XR_ITS ---
EXAMINATION: XR CHEST 1 VIEW HISTORY: Chest pain COMPARISON: Comparison is made with the prior examination dated 10/14/2024. FINDINGS: A single AP portable view of the chest performed at 11:29 AM is submitted. The lungs are expanded and clear. There is no pleural effusion, pneumothorax, or pulmonary vascular congestion. The heart is top normal in size. The bones are intact. XR/XR chest 1V IMPRESSION: No acute cardiopulmonary abnormality. Electronically signed by: Efraín Stallworth MD 11/02/2024 11:34 AM EDT
--- NOTE | 2024-11-02 10:36 | ECG_ITS ---
Test Reason : CP Blood Pressure : */* mmHG Vent. Rate : 82 BPM Atrial Rate : 82 BPM P-R Int : 162 ms QRS Dur : 84 ms QT Int : 376 ms P-R-T Axes : 63 69 49 degrees QTcB Int : 439 ms Normal sinus rhythm Normal ECG When compared with ECG of 15-Oct-2024 01:05, No significant change was found Referred By: Generic ED Physician Electronically Signed By: Alexandre Thompson
[2024-11-02 11:01] VITALS: BP 118/91; PULSE 92; RESP 16; TEMP 36.7; O2SAT 98; BMI 28.3
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
[2024-11-02 11:50] LABS: Basophils Percent Auto 0.3 % (0-2); Eosinophils Absolute Auto 0.1 X10*3/uL (0.0-0.4); Eosinophils Percent Auto 1.1 % (0-4); Hematocrit 38.5 % (37.0-47.0); Hemoglobin 13.5 g/dl (12.0-16.0); Imm Gran Abs Auto 0.01 X10*3/uL (0.00-0.03); Imm Gran Pct Auto 0.1 % (0.0-0.4); Lymphocytes Percent Auto 37.2 % (20-40); MANUAL DIFF FLAG NO; Mean Corpuscular HGB Conc 35.1 g/dl (31.0-35.0); Mean Corpuscular Hemoglobin 31.8 pg (27.0-33.0); Mean Corpuscular Volume 90.8 fL (80.0-98.0); Mean Platelet Volume 8.8 fL (9.4-12.3); Monocytes Absolute Auto 0.4 X10*3/uL (0.1-1.2); Monocytes Percent Auto 4.4 % (2-11); Neutrophils Absolute Auto 4.6 x10*3/uL (2.0-8.3); Neutrophils Percent Auto 56.9 % (45-73); Platelet Count 284 X10*3/uL (160-400); Red Blood Count 4.24 X10*6/uL (4.20-5.50); Red Cell Distribution Width 11.8 % (11.0-16.0)
--- NOTE | 2024-11-02 11:54 | PC.NURSE ---
Patient states was evaluated a couple of weeks ago and was sent to [facility] for a heart attack. Cardiac cath performed and patient unsure of the results. Patient c/o heart burn since yesterday with assoc syncope, dizziness and vomiting.
[2024-11-02 11:56] LABS: Prothrombin Time 11.7 SEC (10.9-12.4)
[2024-11-02 12:00] VITALS: BP 119/77; PULSE 81; RESP 14; O2SAT 97
[2024-11-02 12:06] LABS: Alanine Aminotransferase 26 U/L (0-31); Albumin Level 4.1 g/dL (3.5-5.0); Anion Gap 14 (12-20); Aspartate Amino Transferase 34 U/L (5-31); Bilirubin Total 0.3 mg/dL (0.0-1.0); Blood Urea Nitrogen 16 mg/dL (9-16); Calcium 9.7 mg/dL (8.4-10.2); Carbon Dioxide 26 mmol/L (22-29); Chloride 105 mmol/L (96-108); Estimated Glomerular Filt Rate > 60; Glucose Random 92 mg/dL (60-115); Lipase 13 U/L (8-78); Sodium 141 mmol/L (135-145); Total Protein 7.8 g/dL (6.5-8.0)
[2024-11-02 12:11] LABS: Troponin-I High Sensitivity 46.1 ng/L (<3.5-17.0)
[2024-11-02 12:29] LABS: HCG Quantitative 5 mIU/mL
--- OUTSIDE RECORDS SUMMARY | 2024-11-02 14:31 | XMS_ITS | Encounter Summary ---
Author Organization [facility] [facility] Address [address] [place] [address] Care Team Providers Care Rn Faculty Name Role Phone [facility] Primary Care Provider [phone] Reason for Visit * Reason Comments Med Refill Encounter Details Date Type Department Care Team (Late st Contact Info) Description 05/06/2023 Refill [facility] MEDICINE [address] [place], [place] [phone] [facility] [address] [place], [place] [phone] Social History Tobacco Use Types Packs/Day Years Used Date Smoking Tobacco: Never Assessed Comments Unknown Sex and Gender Information Value Date Recorded Sex Assigned at Female 05/28/2022 10:16 AM EDT Legal Sex Female 10:16 AM EDT Gender Identity Female 05/28/2022 10:16 AM EDT Sexual Orientation Straight 05/28/2022 10 :16 AM EDT documented as of this encounter Plan of Treatment Not on file documented as of this encounter Visit Diagnoses Not on filedocumented in this encounter Care Teams Rn Faculty Relationship Specialty Start Date End Date [facility] [address] [place] [address] PCP - General Family Medicine 01/12/22 09/03/23 documented as of this encounter
--- OUTSIDE RECORDS SUMMARY | 2024-11-02 14:31 | XMS_ITS | Encounter Summary ---
Author Organization [employer] Address [address] [place] [address] Care Team Providers Care Dining Room Tables Set Up Attendant Name Role Phone Mary [facility] Primary Care Provider [phone] Encounter Details Date Type Department Care Team (Late st Contact Info) Description 09/26/2022 Orders Only [facility] PEDS [address] [place] [address] Mariola Chavarria LPN Social History Tobacco Use Types Packs/Day Years [...] on filedocumented in this encounter Care Teams Dining Room Tables Set Up Attendant Relationship Specialty Start Date End Date Mary Lidya [facility] [address] [place] [id number] PCP - General Family Medicine 01/12/22 09/03/23 documented as of this encounter
--- OUTSIDE RECORDS SUMMARY | 2024-11-02 14:31 | XMS_ITS | Encounter Summary ---
Author Organization [employer] Address [address] [facility] [address] [place] [address] Care Team Providers Care Battery Container Finishing Hand Name Role Phone Unavailable Primary Care Provider Unavailabl e Reason for Visit * Reason Comments Med Refill Encounter Details Date Type Department Care Team (Late st Contact Info) Description 03/10/2024 Refill [facility] MEDICINE [address] [place] [address] [facility] [address] [place] [address] Social History Tobacco Use Types Packs/Day Years [...]
--- OUTSIDE RECORDS SUMMARY | 2024-11-02 14:31 | XMS_ITS | Encounter Summary ---
Author Organization [employer] Address [address] [address] [place] [address] Care Team Providers Care Emissions Repair Technician Name Role Phone Unavailable Primary Care Provider Unavailabl e Reason for Visit * Reason Comments Med Refill Encounter Details Date Type Department Care Team (Late st Contact Info) Description 04/09/2024 Refill [facility] MEDICINE [address] [place] [address] [facility] [address] [place] [address] Social History Tobacco Use Types Packs/Day Years [...]
--- OUTSIDE RECORDS SUMMARY | 2024-11-02 14:31 | XMS_ITS | Encounter Summary ---
Author Organization [employer] Address [address] [facility] [address] [place] [address] Care Team Providers Care Career Services Representative Name Role Phone [facility] Primary Care Provider [phone] Reason for Visit * Reason Onset Date Comments ER Follow-up 03/21/2023 Encounter Details Date Type Department Care Team ([facility] st Contact Info) Description 03/21/2023 Telephone [facility] MEDICINE [address] [place], [place] [phone] [facility] [address] [place], [place] [phone] ER Follow-up Social History Tobacco Use Types Packs/Day Years Used Date Smoking Tobacco: Never Assessed Comments Unknown Sex and Gender Information Value Date Recorded Sex Assigned at Female 05/28/2022 10:16 AM EDT Legal Sex Female 10:16 AM EDT Gender Identity Female 05/28/2022 10:16 AM EDT Sexual Orientation Straight 05/28/2022 10 :16 AM EDT documented as of this encounter Miscellaneous Notes * Telephone Encounter - Joy Batrlett RN - 03/25/2023 2:42 PM EDT Return T/C to [phone] for below message, No answer. LVM to call back on [phone]. * Telephone Encounter - Leonie Villegas - 03/21/2023 8:17 AM EDT Tc from pt advising PCP of an ED visit. Pt was seen on [facility] for a fall on 03/02. Pt was advised will forward to team nurses for f/u. States she is also having other health issues and would like to be seen by PCP as soon as possible. Please contact pt at [phone] documented in this encounter Plan of Treatment Not on file documented as of this encounter Visit Diagnoses Not on filedocumented in this encounter Care Teams Career Services Representative Relationship Specialty Start Date End Date Lidya Hernandez FNP [address] [place] [id number] PCP - General Family Medicine 01/12/22 09/03/23 documented as of this encounter
--- OUTSIDE RECORDS SUMMARY | 2024-11-02 14:31 | XMS_ITS | Encounter Summary ---
Author Organization [employer] Address [address] [facility] [address] [place] [address] Care Team Providers Care Refrigeration Systems Installer Name Role Phone Unavailable Primary Care Provider Unavailabl e Reason for Visit * Reason Comments Med Refill Encounter Details Date Type Department Care Team (Late st Contact Info) Description 08/01/[address] [facility] MEDICINE [address] [place] [address] [facility] [address] [place] [address] Social History Tobacco Use Types Packs/Day Years [...]
--- OUTSIDE RECORDS SUMMARY | 2024-11-02 14:31 | XMS_ITS | Encounter Summary ---
Author Organization [employer] Address [address] [facility] [address] [place] [address] Care Team Providers Care Cabinet Abrasive Sandblaster Name Role Phone [facility] Primary Care Provider [phone] Encounter Details Date Type Department Care Team (Late st Contact Info) Description 01/01/2023 Orders Only [facility] MED [facility] PEDS [address] [place] [address] Mariola Chavarria LPN Social History Tobacco Use [...] on filedocumented in this encounter Care Teams Cabinet Abrasive Sandblaster Relationship Specialty Start Date End Date Mary Lidya [facility] [address] [place] [phone] PCP - General Family Medicine 01/12/22 09/03/23 documented as of this encounter
--- OUTSIDE RECORDS SUMMARY | 2024-11-02 14:31 | XMS_ITS | Clinical Summary ---
Author Organization [employer] Address [address] [facility] [address] [place] [address] Care Team Providers Care Director Of Product Development Name Role Phone Unavailable Primary Care Provider Unavailabl e Medications Ventolin HFA 108 (90 Base) MCG/ACT inhaler TAKE 2 PUFFS BY MOUTH EVERY 4 TO 6 HOURS NEEDED 3 Active levothyroxine (Tirosint) 25 MCG capsuleIndications: Other specified hypothyroidism TAKE 1 CAPSULE BY MOUTH EVERY MORNING 90 capsule 1 3 Active cholecalciferol 50 MCG (1999 UT) capsule TAKE 1 CAPSULE BY MOUTH EVERY DAY 90 capsule 4 Active Ventolin HFA 108 (90 Base) MCG/ACT inhalerIndications: Wheezing INHALE 2 PUFFS BY MOUTH EVERY 4 TO 6 HOURS NEEDED 18 g 4 Active Active Problems Patient Care Coordination No te Formatting of this note migh t be different from the original. C3/CM Kylie Castillo RN, TC Progress Note/LTSS/60 Day CP Review No additional problems on file Social History Tobacco Use Types Packs/Day Years Used Date Smoking Tobacco: Never Assessed Comments Unknown Sex and Gender Information Value Date Recorded Sex Assigned at Female 05/28/2022 10:16 AM EDT Legal Sex Female 10:16 AM EDT Gender Identity Female 05/28/2022 10:16 AM EDT Sexual Orientation Straight 05/28/2022 10 :16 AM EDT Last Filed Vital Signs Vital Sign Reading Time Taken Comments Blood Pressure 106/70 04/16/2022 12:09 AM EDT Pulse 77 04/16/2022 12:09 AM EDT Temperature - - Respiratory Rate - - Oxygen Saturation - - Inhaled Oxygen Concentration - - Weight 84.5 kg (186 lb 3.2 oz) 04/16/2022 12:09 AM EDT Height 161 cm (5' 3.39 ) 04/16/2022 12:09 AM EDT Body Mass Index 32.58 04/16/2022 12:09 AM EDT Plan of Treatment Health Maintenance Due Date Last Done Comments CT Colonography 1971 Colonoscopy 1971 Colorectal Cancer Screening 1971 Depression Screening 1971 FIT DNA/Cologuard 1971 FIT 1971 FOBT 1971 SDOH Screening 1971 Sigmoidoscopy 1971 Alcohol/Substance Use Screening 1983 Tobacco Screening 1983 Hepatitis A Vaccines (1 of 2 - Risk 2-dose series) 1990 Hepatitis B Vaccines (1 of 3 - 19+ 3-dose series) 1990 Pap Smear 1992 Cervical Cancer Screening 2001 HPV/Cotest 2001 Mammogram 2011 Pneumococcal Vaccine: 50+ Years (2 of 2 - PCV) 2021 09/27/2017 Zoster Vaccines (1 of 2) 2021 COVID-19 Vaccine ( - season) 2024 Influenza Vaccine (#1) 2024 9, 04/14/2019, 05/17/2017, Additional history exists DTaP/Tdap/Td Vaccines (2 - Td or Tdap) 09/05/2025 09/05/2015 RSV Patients and Patients Aged 60 years or older (1 - 1-dose 75+ series) 2046 HIV Screening Completed 06/24/2021 HIB Vaccines Aged Out No longer eligi ble based on patient's age to complete this topic HPV Vaccines Aged Out No longer eligi ble based on patient's age to complete this topic IPV Vaccines Aged Out No longer eligi ble based on patient's age to complete this topic Meningococcal Vaccine Aged Out No riya brittaney eligible based on patient's age to complete this topic RSV under 20 months Aged Out No longe r eligible based on patient's age to complete this topic Rotavirus Vaccines Aged Out No longer eligible based on patient's age to complete this topic Procedures Procedure Name Priority Date/Time Associated Diagnosis Comments ZZZ HISTORICAL HEPATITIS A,B,C PROFILE Routine 06/24/2021 11:11 AM EST from Last 3 Months or Most Recently Relevant to Health Maintenance Results * (ABNORMAL) Hepatitis A,B,C Profile (06/24/2021 11:11 AM EST) Hepatitis B Core Antibody Nonreactive Nonreactive [facility] Hepatitis B Surface Antibody REACTIVE Nonreactive [facility] Comment:REACTIVE: > 11.99 mI U/mL Hepatitis B Surface Antigen Negative Negative [facility] Hepatitis C Antibody Reactive(A) Nonreactive [facility] Comment:Presumptive evidence of antibodies to HCV. HIV AB/AG Nonreactive Nonreactive [facility] Comment: HIV-1 p24 Ag and/or HIV-1/HIV-2 Ab not detected. ?? A test result that is nonreactive does not exclude the possibility of exposure to or infection with HIV-1 and/or HIV-2. Nonreactive results in this assay for individuals with prior exposure to HIV-1 and/or HIV-2 may be due to antigen and antibody levels that are below the limit of detection of this assay. ?? The [employer] HIV Ag/Ab Combo assay result and supplemental assay results should be interpreted in conjunction with the patient's clinical presentation, history and other laboratory results. ??If the results are inconsistent with clinical evidence, additional testing is suggested to confirm the result. 06/24/2021 11:1 1 AM EST us Historical Provider HISTORICAL/NON ORDERABLE LABS Final Result [facility] Anywhere [address] from Last 3 Months or Most Recently Relevant to Health Maintenance Insurance [facility] C3
--- OUTSIDE RECORDS SUMMARY | 2024-11-02 14:31 | XMS_ITS | Encounter Summary ---
Author Organization [employer] Address [address] [facility] [address] [place] [address] Care Team Providers Care Correctional Agency Director Name Role Phone Unavailable Primary Care Provider Unavailabl e Reason for Visit * Reason Comments Med Refill Encounter Details Date Type Department Care Team (Late st Contact Info) Description 05/08/2024 Refill [facility] MEDICINE [address] [place] [address] [facility] [address] [place] [address] Social History Tobacco Use Types Packs/Day Years [...]
--- OUTSIDE RECORDS SUMMARY | 2024-11-02 14:31 | XMS_ITS | Encounter Summary ---
Author Organization [employer] [facility] Address [address] [facility] [address] [place] [address] Care Team Providers Care Layboy Operator Name Role Phone [facility] Primary Care Provider [phone] Reason for Visit * Reason Comments Med Refill Encounter Details Date Type Department Care Team (Late st Contact Info) Description 06/04/2023 Refill [facility] MEDICINE [address] [place], [place] [id number] Kimmie Harding MD [address] [place] [address] Other specified hypothyroidism Social History Tobacco Use Types Packs/Day Years [...] documented as of this encounter Visit Diagnoses Diagnosis Other specified hypothyroidism documented in this encounter Care Teams Layboy Operator Relationship Specialty Start Date End Date [facility] [address] [place] [address] PCP - General Family Medicine 01/12/22 09/03/23 documented as of this encounter
--- OUTSIDE RECORDS SUMMARY | 2024-11-02 14:31 | XMS_ITS | Encounter Summary ---
Author Organization [employer] Address [address] [facility] [address] [place] [address] Care Team Providers Care Supervisor Lamp Shades Name Role Phone Unavailable Primary Care Provider Unavailabl e Reason for Visit * Reason Comments Med Refill Encounter Details Date Type Department Care Team (Late st Contact Info) Description 01/25/2024 Refill [facility] MEDICINE [address] [place] [address] [facility] [address] [place] [address] Social History Tobacco Use Types Packs/Day Years [...]
[2024-11-02 14:35] LABS: Alkaline Phosphatase 71 U/L (39-117)
[2024-11-02 15:17] VITALS: BP 99/62; PULSE 78; RESP 18; TEMP 36.8; O2SAT 95
[2024-11-02 15:44] LABS: Troponin-I High Sensitivity 45.1 ng/L (<3.5-17.0)
[2024-11-02 16:00] VITALS: BP 90/63; PULSE 81; RESP 14; TEMP 36.8; O2SAT 95
[2024-11-02] MEDS: Lidocaine HCl Viscous 2 % 15 ML SOLUTION MUCOUS MEM (16:18)
[2024-11-02] MEDS: Magnesium Hydrox/Alum Hydrox 30 ML ORAL.SUSP PO (16:18)
[2024-11-02 17:40] VITALS: BP 90/63; PULSE 81; RESP 14; TEMP 36.8; O2SAT 95
== END 2024-11-02 17:41 | disposition home or self-care (01) ==
PROVIDERS: Physician Assistant; Registered Nurse Emergency; Emergency Provider Emergency Medicine; PCP Internal Medicine
DX: R07.89 Other chest pain (principal); R10.13 Epigastric pain; E03.9 Hypothyroidism, unspecified; F41.9 Anxiety disorder, unspecified; R11.2 Nausea with vomiting, unspecified; Z79.899 Other long term (current) drug therapy; Z87.891 Personal history of nicotine dependence
CPT/HCPCS: 36415; 71045; 76705; 80053; 83690; 84484; 84702; 85025; 85610; 85730; 93005; 99284; 99285

== ENCOUNTER → 2024-11-02 10:36 | Outpatient (BNV) | payer MEDICAID, SELFPAY | PROVIDERS: Emergency Provider Emergency Medicine; PCP Internal Medicine; Visit Provider Internal Medicine Cardiovascular Disease | DX: R07.9 Chest pain, unspecified (principal) | CPT/HCPCS: 93010 ==

== ENCOUNTER → 2024-11-02 11:04 | Outpatient (BNV) | payer MEDICAID, SELFPAY | PROVIDERS: Emergency Provider Emergency Medicine; PCP Internal Medicine; Visit Provider Radiology Diagnostic Radiology | DX: R10.11 Right upper quadrant pain (principal); R07.9 Chest pain, unspecified | CPT/HCPCS: 71045; 76705 ==

== ENCOUNTER 2025-03-23 13:44 | Observation (INO) | payer MEDICAID, SELFPAY ==
[2025-03-23] VITALS (7 sets, daily range): BP systolic 101–132; BP diastolic 67–94; PULSE 68–95; RESP 12–18; TEMP 36.2–37.2; O2SAT 95–99; BMI 31.7; BMI 30.6
--- NOTE | 2025-03-23 | ECG_ITS ---
Test Reason : CP Blood Pressure : */* mmHG Vent. Rate : 81 BPM Atrial Rate : 81 BPM P-R Int : 142 ms QRS Dur : 84 ms QT Int : 374 ms P-R-T Axes : 61 65 56 degrees QTcB Int : 435 ms Normal sinus rhythm Normal ECG When compared with ECG of 02-Nov-2024 10:38, No significant changes seen Referred By: Generic ED Physician Electronically Signed By: CRUZ EMANUEL
--- NOTE | 2025-03-23 14:28 | PC.NURSE ---
During triage patient asked if she currently had pain, patient stating no, but it was so bad when I was at home that I wanted to shoot myself with a gun . Patient denies having a gun at home, states she thinks they are hard to get. Patient stating in this moment not SI but that when she has the episodes of pain that she feels like shooting herself with a gun. Changed into hospital attire but resistant to belongings belong locked up. Stating get out of my room, I do not want you as my nurse. Secuirty at bedside, patient to be assessed by MD. Patients sister called asking for info on patient , when patient asked if this RN can give info to her sister, patient stating no , you are a bimbo get out of my room, you can not tell her anything. 1;1 in room with patient, sister aware patient does not want this RN to give her any info at this time. Tech into room to draw labs
[2025-03-23 14:56] LABS: MANUAL DIFF FLAG NO
[2025-03-23 14:57] LABS: Hematocrit 41.5 % (37.0-47.0); Hemoglobin 14.1 g/dl (12.0-16.0); Imm Gran Abs Auto 0.02 X10*3/uL (0.00-0.03); Imm Gran Pct Auto 0.3 % (0.0-0.4); Lymphocytes Absolute Auto 1.5 X10*3/uL (1.2-4.9); Mean Corpuscular HGB Conc 34.0 g/dl (31.0-35.0); Mean Corpuscular Hemoglobin 31.3 pg (27.0-33.0); Mean Corpuscular Volume 92.2 fL (80.0-98.0); NRBC Abs Auto 0.000 X10*3/uL (0.0-0.012); NRBC Pct Auto 0.0 /100WBC (0.0-0.2); Platelet Count 304 X10*3/uL (160-400); Red Blood Count 4.50 X10*6/uL (4.20-5.50); White Blood Count 7.3 X10*3/uL (4.8-10.8)
[2025-03-23 15:20] LABS: Anion Gap 15 (12-20); Blood Urea Nitrogen 17 mg/dL (9-16); Calcium 10.3 mg/dL (8.4-10.2); Carbon Dioxide 25 mmol/L (22-29); Chloride 104 mmol/L (96-108); Creatinine Clr Calc Pharmacy 68.1; Estimated Glomerular Filt Rate 58; Magnesium 2.0 mg/dL (1.6-2.6); Potassium 4.0 mmol/L (3.3-5.1); Sodium 140 mmol/L (135-145)
[2025-03-23 15:21] LABS: Troponin-I High Sensitivity 42.8 ng/L (<3.5-17.0)
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
[2025-03-23 15:28] LABS: B Type Natriuretic Peptide 42 pg/mL (<100)
[2025-03-23] MEDS: diazePAM 10 MG/2 ML CARTRIDGE 5 MG IM (15:36)
[2025-03-23 15:41] LABS: Alanine Aminotransferase 21 U/L (0-31); Albumin Level 4.8 g/dL (3.5-5.0); Alkaline Phosphatase 82 U/L (39-117); Aspartate Amino Transferase 47 U/L (5-31); Lipase 10 U/L (8-78); Total Protein 8.4 g/dL (6.5-8.0)
--- NOTE | 2025-03-23 15:49 | PC.NURSE ---
Became agitated d/t male 1;1 sitting in room. Patient agitated and yelling , unable to re-direct patient. Security at bedside and patient continued to escalate. Medicated per mar with good effect.
[2025-03-23 16:35] LABS: Troponin-I High Sensitivity 73.4 ng/L (<3.5-17.0)
--- NOTE | 2025-03-23 17:12 | PC.NURSE ---
Patient calm and cooperative, continues to deny chest pain. 1:[address] for safety.
--- NOTE | 2025-03-23 17:52 | MHC.CARE ---
Pt was assessed by the CARE team, her current presentation does not indicate a need for a higher level of care as she is future oriented, denied suicidal ideations and is looking to obtain answers for her medical symptoms. Pt is still being medically worked up. Pt was referred to [facility] for 3 day follow up and [facility] for outpatient therapy. Pt is cleared by the CARE team at this time.
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
--- NOTE | 2025-03-23 19:05 | MHC.CARE ---
RAD Team completed CC referrla for this pt.
--- NOTE | 2025-03-23 19:46 | PC.NURSE ---
Addendum entered by Blaise Barrios RN 03/23/25 20:37: also notified MD of initial ekg qtc was elevated, repeat improved and ekg sent to . pt medicated per mar reporting 8/ CP. pt is stating her SI statements were made to express the great amount of pain she has been in and she has no intention to hurt herself. per CARE team pt is cleared and does not need a sitter. [place] [facility] [place] also pt sister called for update. pt requests we do not speak to anyone including her sister. [facility]NAL Caraballo made aware as well. Addendum entered by Blaise Barrios RN 03/23/25 19:52: reached out to MD Miller regarding elevated troponin. at this time there aren't orders regarding redraw labs/meds/etc. awaiting response to establish plan of care. Original Note: assumed care of pt 1900. 1:1 sitter at bedside. pt is resting with eyes closed resp even and unlabored. on cardiac & o2 monitoring currently. nad.
--- NOTE | 2025-03-23 20:19 | ECG_ITS ---
Test Reason : QTC CHECK Blood Pressure : */* mmHG Vent. Rate : 66 BPM Atrial Rate : 66 BPM P-R Int : 188 ms QRS Dur : 86 ms QT Int : 420 ms P-R-T Axes : 59 60 28 degrees QTcB Int : 440 ms Normal sinus rhythm Nonspecific T wave abnormality Abnormal ECG When compared with ECG of 23-Mar-2025 13:52, No significant changes seen Referred By: Kenneth Miller Electronically Signed By: CRUZ EMANUEL
[2025-03-23 21:26] LABS: Troponin-I High Sensitivity 84.5 ng/L (<3.5-17.0)
--- NOTE | 2025-03-23 22:14 | PHA.MEDREC ---
Addendum entered by Nima Mcguire, PharmD 03/23/25 22:42: MED REC CHECKED BY [facility] Original Note: Pharmacy Consult ? Medication Reconciliation Pharmacy has completed the medication reconciliation. Spoke with pt and she confirmed she is only taking Methadone 100mg once daily and nothing else at this time.
[2025-03-23] MEDS: Magnesium Sulfate/H2O 2 GM/50 ML PIGGYBACK IV (22:41)
[2025-03-23] MEDS: 0.9 % Sodium Chloride Flush 3 ML SYRINGE IVFLUSH (22:44)
[2025-03-24 03:51] VITALS: BP 118/75; PULSE 82; RESP 17; TEMP 36.2; O2SAT 97
[2025-03-24 07:39] VITALS: BP 127/74; PULSE 73; RESP 20; TEMP 36.5; O2SAT 96
[2025-03-24 07:40] LABS: MANUAL DIFF FLAG NO
[2025-03-24 07:59] LABS: Hematocrit 38.9 % (37.0-47.0); Hemoglobin 13.0 g/dl (12.0-16.0); Imm Gran Abs Auto 0.02 X10*3/uL (0.00-0.03); Imm Gran Pct Auto 0.3 % (0.0-0.4); Lymphocytes Absolute Auto 3.2 X10*3/uL (1.2-4.9); Mean Corpuscular HGB Conc 33.4 g/dl (31.0-35.0); Mean Corpuscular Hemoglobin 31.1 pg (27.0-33.0); Mean Corpuscular Volume 93.1 fL (80.0-98.0); NRBC Abs Auto 0.000 X10*3/uL (0.0-0.012); NRBC Pct Auto 0.0 /100WBC (0.0-0.2); Platelet Count 287 X10*3/uL (160-400); Red Blood Count 4.18 X10*6/uL (4.20-5.50); White Blood Count 6.7 X10*3/uL (4.8-10.8)
[2025-03-24 08:25] LABS: Alanine Aminotransferase 22 U/L (0-31); Albumin Level 4.2 g/dL (3.5-5.0); Alkaline Phosphatase 72 U/L (39-117); Anion Gap 13 (12-20); Aspartate Amino Transferase 55 U/L (5-31); Blood Urea Nitrogen 17 mg/dL (9-16); Calcium 9.1 mg/dL (8.4-10.2); Carbon Dioxide 24 mmol/L (22-29); Chloride 107 mmol/L (96-108); Creatinine Clr Calc Pharmacy 73.5; Estimated Glomerular Filt Rate > 60; Potassium 3.6 mmol/L (3.3-5.1); Sodium 140 mmol/L (135-145); Total Protein 7.3 g/dL (6.5-8.0)
[2025-03-24] MEDS: 0.9 % Sodium Chloride Flush 3 ML SYRINGE IVFLUSH ×2 (08:39→13:13)
--- NOTE | 2025-03-24 08:53 | CA_ITS ---
Transthoracic Echocardiogram Patient (Last, First, Middle): Briana Garza I Gender: F Date of : 1970 Age: 54 Procedure Date: 03/24/2025 Procedure Type: Transthoracic Echocardiogram Location: [facility] [place] Height: 162.56 cm Weight: 80.74 kg BSA: 1.86 m2 Heart Rate: bpm BP: 127 / 74 mmHg [employer] D[employer] Operator: TO Referring MD: Mitul Rouse MD Symptoms: chest pain, elevated troponin Study Quality: Adequate with contrast ECG Rhythm: Sinus Conclusions: - The left ventricular systolic function is normal. The calculated ejection fraction is 61% by biplane method. - There is moderate tricuspid valve regurgitation. - There is a small loculated pericardial effusion overlying the left ventricle and right atrium. Findings Procedure Information Contrast agent, definity, is being given per protocol without apparent complications. Left Ventricle Normal left ventricular cavity size. There is normal left ventricular wall thickness. The left ventricular systolic function is normal. The calculated ejection fraction is 61% by biplane method. There is no evidence of regional wall motion abnormalities. Diastolic function is normal for age. Right Ventricle Normal right ventricular cavity size and systolic function. Atria The left atrium is normal in size. The right atrium is mildly dilated. Aortic Valve There is a normal trileaflet aortic valve. There is no aortic valve stenosis. There is no aortic valve regurgitation. Mitral Valve The mitral valve appears normal. There is no mitral valve regurgitation. There is no mitral valve stenosis. Pulmonic Valve The pulmonic valve is likely normal. Tricuspid Valve There is moderate tricuspid valve regurgitation. There is no evidence of pulmonary hypertension. Great Vessels The asc aorta is normal in size. Venous The inferior vena cava is normal in size and collapses greater than 50% with inspiration. Pericardium/Pleural There is a small loculated pericardial effusion overlying the left ventricle and right atrium. Prior Study Comparison No significant change compared to prior study dated: 10/15/2024. Measurements 2D Linear Measurements IVSd: 0.88 0.6-0.9/0.6-1.0 cm LVIDd: 4.60 3.9-5.3/4.2-5.9 cm LVIDd Index: 2.47 2.4-3.2/2.2-3.1 cm/m2 LVIDs: 3.16 2.0-3.6 cm LVPWd: 0.74 0.7-1.1 cm LA Diam: 3.90 2.7-3.8/3.0-4.0 cm LAIDs Index: 2.10 1.5-2.3 cm/m2 LV Mass: 148.44 67-162/88-224 g LV Mass Index: 79.80 43-95/49-115 g/m2 LVOT Diam: 2.00 3.0+(-)1.3 cm 2D Systolic Function EF 4C: 60.00 >55% EF 2C: 64.10 >55% EF BiP: 61.30 >55% Mitral Valve MV Pk E: 0.63 MV PK A: 0.90 MV Decel Time: 195.00 E/A: 0.70 E'Lateral: 8.27 E'Medial: 7.07 E/E' Med: 9.00 E/E' Lat: 7.70 PHT: 57.00 MVA PHT: 3.86 Decel [place]: 3.24 Aortic Valve AoV Pk Jose Manuel: 1.72 AoV Mn Jose Manuel: 1.09 AoV VTI: 0.30 AoV Pk Grad: 12.00 Aov Mn Grad: 6.00 DESTIN Cont.VTI: 1.96 LVOT LVOT Pk Jose Manuel: 1.01 LVOT Mn Jose Manuel: 0.60 LVOT VTI: 0.19 LVOT Pk Grad: 4.00 LVOT Mn Grad: 2.00 LVOT Diam: 2.00 LVOT Area: 3.14 Diastolic Function MV Pk E: 0.63 MV Pk A: 0.90 E/A: 0.70 E'Medial: 7.07 E/E' Med: 9.00 E' Laterial: 8.27 E/E' Lat: 7.70 Right Ventricle TAPSE (mm): 25.60 TVS' Jose Manuel: 12.50 Tricuspid Valve TR Pk Jose Manuel: 2.16 TR Pk Grad: 19.00 RA Press: 8.00 RVSP: 27.00 Great Vessels Aorta Sinus of Valsalva: 2.87 2.0-3.[address] [place]: 2.67 1.7-3.4 cm Ao Asc: 3.30 2.1-3.4 cm Updated in Other Vendor System with Status of Final Mitul Rouse MD electronically signed on 03/24/2025 12:22:16 PM with status of Final
--- NOTE | 2025-03-24 09:33 | MHC.CM.PN ---
SUKH 03/24. Pt self-care, lives at home alone.Pt will need assistance with transport home at discharge. HCP on file and verified. PCP: Dr. Tianna Childress
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
[2025-03-24 10:35] LABS: Cannabinoid Screen Urine POSITIVE (Not Detect)
[2025-03-24 11:19] VITALS: BP 121/69; PULSE 83; RESP 20; TEMP 36.6; O2SAT 96
[2025-03-24 12:47] LABS: Troponin-I High Sensitivity 24.4 ng/L (<3.5-17.0)
--- NOTE | 2025-03-24 14:12 | P.DS_ITS ---
DS: Providers Provider Date of Service: 03/24/25 Date of admission: 03/23/25 17:34 Date of discharge: 03/24/25 Primary care physician: Tianna Childress MD Consults: 03/23/25 15:22 ED CARE Team Crisis Consult Stat Comment: Reason for consultation: cp 03/23/25 19:55 Consult to Cardiology Routine Consulting Provider: [facility] Reason for consultation: chest pain; prolonged QT DS: Diagnosis Discharge Diagnosis (1) Chest pain: Status: Acute (2) Elevated troponin: Status: Acute DS: Summary Hospital Course Hospital Course: From admission HPI: Date of Service: 03/23/25 Attending physician on admission: [facility] Chief Complaint: Chest pain Pt is a 54-year-old female with a PMH significant for?NSTEMI in 09/2024, endocarditis 2021, diskitis, HLD, polysubstance use disorder on methadone, PTSD, and schizoaffective disorder who presents to the ED with?substernal heartburn radiating to left shoulder, neck, and arm. Pt previously experienced NSTEMI in 09/2024 where troponins increased from 104.1 to 1151.4. Was transferred to [facility] where she underwent a [facility] coronary angiography that was without evidence of significant CAD. Pain was thought secondary to coronary vasospasm as well as uncontrolled HTN. MRA of brain/neck with multiple areas of severe stenosis of left vertebral artery. Also experienced epigastric pain that psychiatry thought could be related to somatic symptom disorder with extensive trauma hx. Since then pt says has continued to have epigastric pain on and off. Today pain was so bad that pt initially said she wanted to shoot herself with a gun. Describes her pain as heartburn that is so intense has N/V, F/C, lightheadedness and dizziness. No SOB or cough. In the ED pt was extremely agitated, requiring security and IM haldol, diazepam, and diphenhydramine. Was seen and evaluated by care team for SI comments who did not feel she met criteria for higher level of inpatient psychiatric care. Recommended a 3-day follow-up. In the ED pt's vitals stable. Labs were significant for initial troponin 42.8 with repeat with delta at 73.4, otherwise grossly unremarkable. No leukocytosis. No significant electrolyte abnormalities. Renal and hepatic function baseline. EKG demonstrated NSR without evidence of significant ST elevations or depressions. ED physician contacted cardiology who suggested admitting for cardiac monitoring and trending troponins, but currently no idication for a heparin drip. Pt was treated in the ED with IM diazepam, haloperidol, and diphenhydramine. Pt is admitted to the hospital under observation for treatment and further evalaution of elevated troponins. Hospital course: Pt was admitted to the hospital for atypical chest pain in the setting of elevated troponins with delta: Initial troponin 42.8 with repeat 73.4 and repeat flat at 84.5 and this morning 24.4. Pt was monitored overnight on telemetry which failed to demonstrate any significant arrhythmias. Repeat echocardiogram similar to previous, finding preserved LV EF of 61%, moderate tricuspid valve regurgitation, and small loculated pericardial effusion of left ventricle and right atrium. Was seen and evaluated by Cardiology who suggested symptoms possibly recurrent coronary vasospasm. Suggested placing on low-dose of amlodipine as well as sublingual nitroglycerin p.r.n.. Pt was treated conservatively for pain management as well as with PPI. Symptoms soon resolved and pt felt back to baseline this afternoon and agreeable to discharge. Pt will be discharged on amlodipine 5 mg daily, nitroglycerin 0.4 mg sublingual p.r.n., and omeprazole 40 mg daily times 14 days. --for OUD, continue methadone Time Attestation Discharge Coordination Time (in mins): 36 Quality: Safe Use of Opioids Does Pt have an Active Cancer Diagnosis on the Problem List?: No Quality: Stroke Does the patient have a stroke diagnosis?: No Physical Exam Exam: Exam: General: AOx3, no acute distress Resp: CTA bilaterally CVS: S1, S2, RRR GI: +BS, NT, no distention Skin: Warm, dry Neuro: Cranial nerves II-XII grossly intact bilaterally. Motor grossly intact bilaterally Extremities: No edema Psych: Anxious but cooperative Vital Signs: Vital Signs: Last Vital Signs Temp 97.8 F 03/24/25 11:19 Pulse 83 03/24/25 11:19 Resp 20 03/24/25 11:19 BP 121/69 03/24/25 11:19 Pulse Ox 96 03/24/25 11:19 O2 Del Method Room Air 03/24/25 11:19 O2 Flow Rate 2 03/23/25 20:06 BMI result Body Mass Index 30.6 DS: Data Data Completed and Pending Labs on day of discharge: Laboratory Results - last 24 hr 03/23/25 03/23/25 03/23/25 14:51 16:08 20:44 WBC 7.3 RBC 4.50 Hgb 14.1 Hct 41.5 MCV 92.2 MCH 31.3 MCHC 34.0 RDW 11.8 Plt Count 304 MPV 9.3 L Immature Gran % (Auto) 0.3 Neut % (Auto) 75.9 H Lymph % (Auto) 20.0 [place] % (Auto) 3.4 Eos % (Auto) 0.1 Baso % (Auto) 0.3 Lymph # (Auto) 1.5 [place] # (Auto) 0.3 Eos # (Auto) 0.0 Baso # (Auto) 0.0 Abs Immat Gran (auto) 0.02 Absolute Neuts (auto) 5.5 Absolute Nucleated RBC 0.000 Nucleated RBC % (auto) 0.0 Hold Blue Top SEE NOTE Sodium 140 Potassium 4.0 Chloride 104 Carbon Dioxide 25 Anion Gap 15 BUN 17 H Creatinine 1.00 Estim Creat Clear Calc 68.1 Estimated GFR 58 Random Glucose 127 H Calcium 10.3 H D Magnesium 2.0 Total Bilirubin 0.5 Direct Bilirubin 0.2 AST 47 H ALT 21 Alkaline Phosphatase 82 Troponin I High Sens 42.8 H 73.4 H* D 84.5 H* B-Natriuretic Peptide 42 Total Protein 8.4 H Albumin 4.8 Lipase 10 Urine Opiates Screen Ur Buprenorphine Scrn Ur Oxycodone Screen Urine Methadone Screen Urine Fentanyl Screen Ur Barbiturates Screen Ur Phencyclidine Scrn Ur Amphetamines Screen U Benzodiazepines Scrn Urine Cocaine Screen U Marijuana (THC) Screen Ethyl Alcohol < 10 03/24/25 03/24/25 03/24/25 07:27 10:13 12:08 WBC 6.7 RBC 4.18 L Hgb 13.0 Hct 38.9 MCV 93.1 MCH 31.1 MCHC 33.4 RDW 11.9 Plt Count 287 MPV 9.6 Immature Gran % (Auto) 0.3 Neut % (Auto) 41.9 L Lymph % (Auto) 47.8 H [place] % (Auto) 6.0 Eos % (Auto) 3.3 Baso % (Auto) 0.7 Lymph # (Auto) 3.2 [place] # (Auto) 0.4 Eos # (Auto) 0.2 Baso # (Auto) 0.1 Abs Immat Gran (auto) 0.02 Absolute Neuts (auto) 2.8 Absolute Nucleated RBC 0.000 Nucleated RBC % (auto) 0.0 Hold Blue Top Sodium 140 Potassium 3.6 Chloride 107 Carbon Dioxide 24 Anion Gap 13 BUN 17 H Creatinine 0.91 Estim Creat Clear Calc 73.5 Estimated GFR > 60 Random Glucose 92 Calcium 9.1 D Magnesium Total Bilirubin 0.5 Direct Bilirubin AST 55 H ALT 22 Alkaline Phosphatase 72 Troponin I High Sens 24.4 H D B-Natriuretic Peptide Total Protein 7.3 Albumin 4.2 Lipase Urine Opiates Screen POSITIVE H Ur Buprenorphine Scrn Not Detected Ur Oxycodone Screen Not Detected Urine Methadone Screen Positive H Urine Fentanyl Screen Not Detected Ur Barbiturates Screen Not Detected Ur Phencyclidine Scrn Not Detected Ur Amphetamines Screen Not Detected U Benzodiazepines Scrn POSITIVE H Urine Cocaine Screen Not Detected U Marijuana (THC) Screen POSITIVE H Ethyl Alcohol Discharge Plan Discharge Anticipated Discharge Date/Time: 03/24/25 13:29 Patient Disposition: Home, Self-Care Referrals: Tianna Childress MD [Primary Care Provider, Internal Medicine] - 1 Week Discharge Medications: New omeprazole 40 mg capsule,delayed release(DR/EC) 40 mg PO DAILY Qty: 14 0RF Rx Instructions: Take one capsule daily for the next 14 days for heartburn amlodipine 5 mg tablet 5 mg PO DAILY Qty: 90 0RF Rx Instructions: Take one tablet daily nitroglycerin 0.4 mg tablet, sublingual 0.4 mg sublingual Q5M PRN (Reason: chest pain) Qty: 30 0RF Rx Instructions: do not exceed 3 doses per episode Continued methadone [Methadose] 10 mg/mL concentrate 100 mg PO DAILY Discharge Orders: Discharge Order (Routine); Ordered 03/24/25 Ordered By: Anne Ruiz Activity on Discharge: As tolerated Stand Alone Forms: Patient Portal Discharge page Print Language: German Care Plan Goals: See below Health Concerns: Elevated troponins, NSTEMI Agitation Plan of Treatment: You presented to the hospital with substernal chest pain radiating to left side and admitted to hospital due to elevated troponins. You were treated conservatively for pain management and anxiety/agitation. You were monitored overnight on telemetry which did not demonstrate any concerning arrhythmias. Repeat echocardiogram with findings similar to previous. Repeat troponins were flat, indicating symptoms or likely from a coronary vasospasm in not acute myocardial infarction. Symptoms have since resolved and he will be discharged on medication to treat heartburn. -- for heartburn take omeprazole 40 mg daily for the next 14 days, ending on 04/08 -- for coronary vasospasm, will be placed on a small dose of amlodipine 5 mg daily as well as sublingual nitroglycerin as needed -- for opioid use disorder, continue methadone -- resume all other home medications -- follow up with PCP in 1 week for routine post hospitalization follow up Assessment: See discharge summary
--- NOTE | 2025-03-24 14:35 | MHC.CM.PN ---
Pt is medically cleared for discharge home self-care, she will transport home via lyft.
== END 2025-03-24 14:37 | disposition home or self-care (01) ==
LOC: HO.ED 17:29 → HO.EDOVER 18:03 → HO.IMC 20:07
PROVIDERS: Hospitalist; Admitting Provider Student in an Organized Health Care Education/Training Program; Emergency Provider Emergency Medicine Emergency Medical Services; PCP Internal Medicine; Visit Provider Student in an Organized Health Care Education/Training Program
DX: R07.9 Chest pain, unspecified (principal); R79.89 Other specified abnormal findings of blood chemistry; I25.2 Old myocardial infarction; R10.13 Epigastric pain; I10 Essential (primary) hypertension; E78.5 Hyperlipidemia, unspecified; F25.9 Schizoaffective disorder, unspecified; R45.1 Restlessness and agitation; F19.11 Other psychoactive substance abuse, in remission; F11.21 Opioid dependence, in remission; Z79.899 Other long term (current) drug therapy
CPT/HCPCS: 36415; 80048; 80053; 80076; 80307; 83690; 83735; 83880; 84484; 85025; 93005; 93306; 96365; 96366; 96372; 96375; 96376; 99222; 99285; J1171; J1200; J1630; J1650; J2470; J3360; J3475; Q9957; S9485

== ENCOUNTER → 2025-03-23 13:52 | Outpatient (BNV) | payer MEDICAID, SELFPAY | PROVIDERS: Admitting Provider Student in an Organized Health Care Education/Training Program; Emergency Provider Emergency Medicine Emergency Medical Services; PCP Internal Medicine; Visit Provider Internal Medicine | DX: R94.31 Abnormal electrocardiogram [ECG] [EKG] (principal); Z13.6 Encounter for screening for cardiovascular disorders | CPT/HCPCS: 93010 ==

== ENCOUNTER 2025-03-23 17:34 | Outpatient (BNV) | payer MEDICAID, SELFPAY | END 2025-03-24 08:53 | PROVIDERS: Admitting Provider Student in an Organized Health Care Education/Training Program; Emergency Provider Emergency Medicine Emergency Medical Services; PCP Internal Medicine; Visit Provider Internal Medicine | DX: I31.39 Other pericardial effusion (noninflammatory) (principal); I36.1 Nonrheumatic tricuspid (valve) insufficiency | CPT/HCPCS: 93306 ==

== ENCOUNTER → 2025-03-23 17:34 | Outpatient (BNV) | payer MEDICAID, SELFPAY | PROVIDERS: Admitting Provider Student in an Organized Health Care Education/Training Program; Emergency Provider Emergency Medicine Emergency Medical Services; PCP Internal Medicine; Visit Provider Internal Medicine | DX: R07.9 Chest pain, unspecified (principal); R79.89 Other specified abnormal findings of blood chemistry | CPT/HCPCS: 99223 ==

== ENCOUNTER → 2025-03-23 17:34 | Outpatient (BNV) | payer MEDICAID, SELFPAY | PROVIDERS: Admitting Provider Student in an Organized Health Care Education/Training Program; Emergency Provider Emergency Medicine Emergency Medical Services; PCP Internal Medicine; Visit Provider Student in an Organized Health Care Education/Training Program | DX: R07.9 Chest pain, unspecified (principal); R79.89 Other specified abnormal findings of blood chemistry | CPT/HCPCS: 99239 ==

== ENCOUNTER 2025-05-23 12:15 | Emergency (ER) | payer MEDICAID, SELFPAY ==
[2025-05-23] VITALS (7 sets, daily range): BP systolic 127–166; BP diastolic 78–100; PULSE 66–72; RESP 14–33; TEMP 36.1–36.7; O2SAT 98–100; BMI 34.0
--- NOTE | 2025-05-23 | ECG_ITS ---
Test Reason : chest Blood Pressure : */* mmHG Vent. Rate : 78 BPM Atrial Rate : 78 BPM P-R Int : 128 ms QRS Dur : 86 ms QT Int : 516 ms P-R-T Axes : 35 72 -1 degrees QTcB Int : 588 ms Normal sinus rhythm Nonspecific ST and T wave abnormality Abnormal ECG When compared with ECG of 23-May-2025 12:29, Nonspecific T wave abnormality now evident in Inferior leads QT has lengthened Referred By: Timbo Pruitt Electronically Signed By: CRUZ EMANUEL
--- NOTE | 2025-05-23 | ECG_ITS ---
Test Reason : CP Blood Pressure : */* mmHG Vent. Rate : 77 BPM Atrial Rate : 77 BPM P-R Int : 180 ms QRS Dur : 86 ms QT Int : 416 ms P-R-T Axes : 72 67 68 degrees QTcB Int : 470 ms Normal sinus rhythm Nonspecific ST and T wave abnormality Abnormal ECG When compared with ECG of 23-May-2025 12:56, ST no longer depressed in Inferior leads QT has shortened Referred By: Timbo Pruitt Electronically Signed By: CRUZ EMANUEL
--- NOTE | ~2025-05-23 | XR_ITS ---
CLINICAL HISTORY: chest pain Single view of the chest. COMPARISON: XR chest dated 11/02/24 at 11:29 EDT FINDINGS: Cardiomegaly. No consolidation. No pleural effusion or pneumothorax. No acute fracture. IMPRESSION: 1. No consolidation. 2. Cardiomegaly. This document has been electronically signed by: Zac Graham MD on 05/23/2025 14:47:10
--- NOTE | 2025-05-23 12:18 | ECG_ITS ---
Test Reason : CHEST PAIN Blood Pressure : */* mmHG Vent. Rate : 64 BPM Atrial Rate : 64 BPM P-R Int : 156 ms QRS Dur : 88 ms QT Int : 428 ms P-R-T Axes : 70 69 93 degrees QTcB Int : 441 ms Normal sinus rhythm Possible Left atrial enlargement Marked ST abnormality, possible inferior subendocardial injury Abnormal ECG When compared with ECG of 23-Mar-2025 20:30, ST now depressed in Inferior leads ST now depressed in Lateral leads Referred By: Generic ED Physician Electronically Signed By: CRUZ EMANUEL
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
[2025-05-23 12:44] LABS: MANUAL DIFF FLAG NO
[2025-05-23 12:46] LABS: Hematocrit 42.5 % (37.0-47.0); Hemoglobin 13.9 g/dl (12.0-16.0); Imm Gran Abs Auto 0.05 X10*3/uL (0.00-0.03); Imm Gran Pct Auto 0.4 % (0.0-0.4); Lymphocytes Absolute Auto 2.8 X10*3/uL (1.2-4.9); Mean Corpuscular HGB Conc 32.7 g/dl (31.0-35.0); Mean Corpuscular Hemoglobin 30.0 pg (27.0-33.0); Mean Corpuscular Volume 91.8 fL (80.0-98.0); NRBC Abs Auto 0.000 X10*3/uL (0.0-0.012); NRBC Pct Auto 0.0 /100WBC (0.0-0.2); Platelet Count 311 X10*3/uL (160-400); Red Blood Count 4.63 X10*6/uL (4.20-5.50); White Blood Count 12.2 X10*3/uL (4.8-10.8)
--- OUTSIDE RECORDS SUMMARY | 2025-05-23 12:50 | XMS_ITS | Encounter Summary ---
Author Organization [employer] Address [address] [place] [address] Care Team Providers Care Restorative Coordinator Name Role Phone Mary [facility] Primary Care Provider Encounter Details Date Type Department Care Team (Late st Contact Info) Description 01/01/2023 Orders Only [facility] [address] [place] [address] Mariola Chavarria LPN Social History Tobacco Use [...] on filedocumented in this encounter Care Teams Restorative Coordinator Relationship Specialty Start Date End Date [facility] [address] [place] [id number] PCP - General Family Medicine 01/12/22 09/03/23 documented as of this encounter
--- OUTSIDE RECORDS SUMMARY | 2025-05-23 12:50 | XMS_ITS | Encounter Summary ---
Author Organization [employer] Address [address] [facility] [address] [place] [address] Care Team Providers Care Supervisor Reclamation Name Role Phone Unavailable Primary Care Provider Unavailabl e Reason for Visit * Reason Comments Med Refill Encounter Details Date Type Department Care Team (Late st Contact Info) Description 03/10/2024 Refill [facility] [address] [place] [address] [facility] [address] [place] [address] Social History Tobacco Use Types Packs/Day Years [...]
--- OUTSIDE RECORDS SUMMARY | 2025-05-23 12:50 | XMS_ITS | Encounter Summary ---
Author Organization [employer] Address [address] [facility] [address] [place] [address] Care Team Providers Care Head Up Operator Helper Name Role Phone Mary [facility] Primary Care Provider [phone] Reason for Visit * Reason Comments Med Refill Encounter Details Date Type Department Care Team (Late st Contact Info) Description 06/04/2023 Refill [facility] [address] [place], [place] [phone] Kimmie Harding MD [address] [place] [address] Other specified hypothyroidism Social History Tobacco Use [...] hypothyroidism documented in this encounter Care Teams Head Up Operator Helper Relationship Specialty Start Date End Date [facility] [address] [place] [address] PCP - General Family Medicine 01/12/22 09/03/23 documented as of this encounter
--- OUTSIDE RECORDS SUMMARY | 2025-05-23 12:50 | XMS_ITS | Encounter Summary ---
Author Organization [employer] Address [address] [facility] [address] [place] [address] Care Team Providers Care Artillery Or Naval Gunfire Observer Name Role Phone [facility] Primary Care Provider [phone] Reason for Visit * Reason Onset Date Comments ER Follow-up 03/21/2023 Encounter Details Date Type Department Care Team ([facility] st Contact Info) Description 03/21/2023 Telephone [facility] MEDICINE [address] [place], [place] [phone] [facility] [address] [place] [address] ER Follow-up Social History Tobacco Use Types [...] Miscellaneous Notes * Telephone Encounter - Joy Bartlett RN - 03/25/2023 2:42 PM EDT Return T/C to [phone] for below message, No answer. LVM to call back on [phone]. * Telephone Encounter - Leonie Villegas - 03/21/2023 8:17 AM EDT Tc from pt advising PCP of an ED visit. Pt was seen on [facility] for a fall on 03/02. Pt was advised will forward to team nurses for f/u. States she is also having other health issues and would like to be seen by PCP as soon as possible. Please contact pt at [phone] documented in this encounter Plan of Treatment Not on file documented as of this encounter Visit Diagnoses Not on filedocumented in this encounter Care Teams Artillery Or Naval Gunfire Observer Relationship Specialty Start Date End Date Lidya Hernandez FNP [address] [place] [id number] PCP - General Family Medicine 01/12/22 09/03/23 documented as of this encounter
--- OUTSIDE RECORDS SUMMARY | 2025-05-23 12:50 | XMS_ITS | Encounter Summary ---
Author Organization [employer] Address [address] [facility] [address] [place] [address] Care Team Providers Care Small Brake Form Operator Name Role Phone Unavailable Primary Care Provider Unavailabl e Reason for Visit * Reason Comments Med Refill Encounter Details Date Type Department Care Team (Late st Contact Info) Description 08/01/2024 Refill [facility] MEDICINE [address] [place] [address] [facility] 230 [place] [address] Social History Tobacco Use Types Packs/Day Years [...]
--- OUTSIDE RECORDS SUMMARY | 2025-05-23 12:50 | XMS_ITS | Encounter Summary ---
Author Organization [employer] Address [address] [facility] [address] [place] [address] Care Team Providers Care Immigration Inspector Name Role Phone Unavailable Primary Care Provider Unavailabl e Reason for Visit * Reason Comments Med Refill Encounter Details Date Type Department Care Team (Late st Contact Info) Description 04/09/2024 Refill [facility] MEDICINE [address] [place] [address] [facility] [address] [place] [address] Social History Tobacco Use Types Packs/Day Years [...]
--- OUTSIDE RECORDS SUMMARY | 2025-05-23 12:50 | XMS_ITS | Clinical Summary ---
Author Organization [employer] Address [address] [facility] [address] [place] [address] Care Team Providers Care House Rn Name Role Phone Unavailable Primary Care Provider [...] FOBT 1971 SDOH Screening 1971 Sigmoidoscopy 1971 Disability Screening 1971 Alcohol/Substance Use Screening 1983 Tobacco Screening 1983 Hepatitis A Vaccines (1 of 2 - Risk 2-dose series) 1990 Hepatitis B Vaccines (1 of 3 - 19+ 3-dose series) 1990 Pap Smear 1992 Cervical Cancer Screening 2001 HPV/Cotest 2001 Mammogram 2011 Pneumococcal Vaccine: 50+ Years (2 of 2 - PCV) 2021 09/27/2017 Zoster Vaccines (1 of 2) 2021 COVID-19 Vaccine (1 - season) 2025 Influenza Vaccine (#1) 2025 9, 04/14/2019, 05/17/2017, Additional history exists DTaP/Tdap/Td [...] patient's age to complete this topic Meningococcal B Vaccine Aged Out No l onger eligible based on patient's age to complete [...] Procedure Name Priority Date/Time Associated Diagnosis Comments [facility] HISTORICAL HEPATITIS A,B,C PROFILE Routine 06/24/2021 11:11 AM EST from Last 3 Months or Most Recently Relevant to Health Maintenance Results * (ABNORMAL) Hepatitis A,B,C Profile (06/24/2021 11:11 AM EST) Hepatitis B Core Antibody Nonreactive Nonreactive [facility] Hepatitis B Surface Antibody REACTIVE Nonreactive [facility] Comment:REACTIVE: > 11.99 mI U/mL Hepatitis B Surface Antigen Negative Negative [facility] Hepatitis C Antibody Reactive(A) Nonreactive [facility] Comment:Presumptive evidence of antibodies to HCV. HIV AB/AG Nonreactive Nonreactive [facility] Comment: HIV-1 p24 Ag and/or HIV-1/HIV-2 Ab not detected. A test result that is nonreactive does not exclude the possibility of exposure to or infection with HIV-1 and/or HIV-2. Nonreactive results in this assay for individuals with prior exposure to HIV-1 and/or HIV-2 may be due to antigen and antibody levels that are below the limit of detection of this assay. [facility] [employer] [facility] HIV Ag/Ab Combo assay result and supplemental assay results should be interpreted in conjunction with the patient's clinical presentation, history and other laboratory results. If the results are inconsistent with clinical evidence, additional testing is suggested to confirm the result. 06/24/2021 11:1 1 AM EST us Historical Provider HISTORICAL/NON ORDERABLE LABS Final Result [facility] [address] from Last 3 Months or Most Recently Relevant to Health Maintenance [facility]
--- OUTSIDE RECORDS SUMMARY | 2025-05-23 12:50 | XMS_ITS | Encounter Summary ---
Author Organization [employer] Address [address] [place] [address] [address] [place] [address] Care Team Providers Care Safety Investigator Name Role Phone [facility] Primary Care Provider [phone] Reason for Visit * Reason Comments Med Refill Encounter Details Date Type Department Care Team (Late st Contact Info) Description 05/06/2023 Refill [facility] MEDICINE [address] [place], [place] [phone] [facility] [address] [place] [address] Social History Tobacco Use Types Packs/Day Years [...] on filedocumented in this encounter Care Teams Safety Investigator Relationship Specialty Start Date End Date [facility] [address] [place] [address] PCP - General Family Medicine 01/12/22 09/03/23 documented as of this encounter
--- OUTSIDE RECORDS SUMMARY | 2025-05-23 12:50 | XMS_ITS | Encounter Summary ---
Author Organization [employer] Address [address] [facility] [address] [place] [address] Care Team Providers Care Corporate Safety Coordinator Name Role Phone Mary [facility] Primary Care Provider [phone] Encounter Details Date Type Department Care Team (Late st Contact Info) Description 09/26/2022 Orders Only [facility] [address] [place] [address] Mariola Chavarria LPN Social History Tobacco Use [...] on filedocumented in this encounter Care Teams Corporate Safety Coordinator Relationship Specialty Start Date End Date [facility] [address] [place] [id number] PCP - General Family Medicine 01/12/22 09/03/23 documented as of this encounter
--- OUTSIDE RECORDS SUMMARY | 2025-05-23 12:50 | XMS_ITS | Encounter Summary ---
Author Organization [employer] Address [address] [facility] [address] [place] [address] Care Team Providers Care Magento Developer Name Role Phone Unavailable Primary Care Provider Unavailabl e Reason for Visit * Reason Comments Med Refill Encounter Details Date Type Department Care Team (Late st Contact Info) Description 05/08/2024 Refill [facility] MEDICINE [address] [place] [address] [place] [facility] 230 [place] [address] Social History Tobacco Use Types Packs/Day Years [...]
--- OUTSIDE RECORDS SUMMARY | 2025-05-23 12:50 | XMS_ITS | Encounter Summary ---
Author Organization [employer] Address [address] [facility] [address] [place] [address] Care Team Providers Care Grades 9 12 Tutor Name Role Phone Unavailable Primary Care Provider Unavailabl e Reason for Visit * Reason Comments Med Refill Encounter Details Date Type Department Care Team (Late st Contact Info) Description 01/25/2024 Refill [facility] MEDICINE [address] [place] [address] [facility] [address] [place] [address] Social History Tobacco Use Types Packs/Day Years [...]
[2025-05-23 13:15] LABS: Albumin Level 4.5 g/dL (3.5-5.0); Alkaline Phosphatase 83 U/L (39-117); Anion Gap 18 (12-20); Aspartate Amino Transferase 40 U/L (5-31); Blood Urea Nitrogen 14 mg/dL (9-16); Calcium 9.7 mg/dL (8.4-10.2); Carbon Dioxide 23 mmol/L (22-29); Chloride 105 mmol/L (96-108); Creatinine Clr Calc Pharmacy 75.6; Estimated Glomerular Filt Rate > 60; Magnesium 1.7 mg/dL (1.6-2.6); Potassium 4.0 mmol/L (3.3-5.1); Sodium 142 mmol/L (135-145); Total Protein 8.4 g/dL (6.5-8.0)
[2025-05-23 13:26] LABS: Alanine Aminotransferase 30 U/L (0-31); Troponin-I High Sensitivity < 2.7 ng/L (<3.5-17.0)
[2025-05-23 13:33] LABS: Erythrocyte Sedimentation Rate 32 MM/HR (0-20)
[2025-05-23] MEDS: Heparin Sodium,Porcine/1/2NS 25,000 UNIT/250 ML IV.SOLN 10 UNIT IVCONT (13:34)
--- NOTE | 2025-05-23 13:46 | HO.NURTONUR ---
Pt arrived via ems for sudden onset midsternal chest pain radiating into jaw. Nausea/vomiting/epigastric burning. EKG was obtained on arrival, STEMI was called. USGIV was placed in right upper arm, 18g. Pt was given 0.4mg SL Nitro and 50mcg fentanyl. NS bolus running, pt went into wide complex vtach. MD and weatherization administrator called to bedside. Code cart brought in and placed pt on pads. Pt pale, stating something is happening in my chest . More pain meds given and eventually pt converted out of Vtach. See MAR for med administration. Report called to La[facility] at M[facility] Bed24 at [facility]. EMS at bedside for transfer. Heparin gtt running.
== END 2025-05-23 13:44 | disposition short-term general hospital (02) ==
PROVIDERS: Physician Assistant Medical; Emergency Provider Emergency Medicine Emergency Medical Services; PCP Internal Medicine
DX: I25.9 Chronic ischemic heart disease, unspecified (principal); I47.20 Ventricular tachycardia, unspecified; R07.89 Other chest pain; M25.512 Pain in left shoulder; M54.2 Cervicalgia; I20.1 Angina pectoris with documented spasm; R79.89 Other specified abnormal findings of blood chemistry; Z87.891 Personal history of nicotine dependence
CPT/HCPCS: 36415; 71045; 80053; 83735; 84484; 85025; 85652; 86140; 93005; 96361; 96374; 96375; 96376; 99285; 99291; J1644; J2405; J3010

== ENCOUNTER → 2025-05-23 12:18 | Outpatient (BNV) | payer MEDICAID, SELFPAY | PROVIDERS: Emergency Provider Emergency Medicine Emergency Medical Services; PCP Internal Medicine; Visit Provider Internal Medicine | DX: R94.31 Abnormal electrocardiogram [ECG] [EKG] (principal); R07.9 Chest pain, unspecified | CPT/HCPCS: 93010 ==

== ENCOUNTER → 2025-05-23 12:24 | Outpatient (BNV) | payer MEDICAID, SELFPAY | PROVIDERS: Emergency Provider Emergency Medicine Emergency Medical Services; PCP Internal Medicine; Visit Provider Radiology Diagnostic Radiology | DX: I51.7 Cardiomegaly (principal) | CPT/HCPCS: 71045 ==